=== PATIENT | female | born 1970 | race African-American/Black ===

== ENCOUNTER 2017-11-10 17:35 | Emergency (ER) | payer MEDICARE, MEDICAID, SELFPAY ==
[2017-11-10 17:39] VITALS: BP 97/34; PULSE 99; RESP 16; TEMP 36.9; O2SAT 100; BMI 33.2
--- NOTE | 2017-11-10 18:21 | ED.VISSUMM ---
- ER Visit Summary Date of Service: 11/10/17 Chief Complaint: Dental pain History of Present Illness: The patient is a 47 F arrives by EMS with 1 week of left lower dental pain, left ear pain, and headache. Patient has appointment November 20 with a dentist. She notes some mild jaw swelling. She is on Xarelto for chronic atrial fibrillation Physical Examination: Afebrile vital signs are stable Gen: Well-nourished well-developed Head: Normocephalic atraumatic Eyes: Perrl EOMI ENT: TMs clear no rhinorrhea moist mucous membranes focal gum swelling around the first molar on the left lower side. There is no trismus. Floor the mouth is soft. There is mild swelling on the mandible. Neck: Supple no lymphadenopathy no JVD nontender CVS: Irregularly irregular rhythm rate rhythm no murmurs normal S1-S2 Respiratory: No distress clear to auscultation bilaterally chest nontender Abdomen: Soft nontender nondistended normal bowel sounds no masses Back: Nontender Extremity: Nontender no edema Skin: Normal color no rash Neuro: alert orientated ?3 CN II-XII intact normal strength sensation reflexes gait cerebellar Psych: Normal affect normal mood Emergency Department Course and Treatment: Will be treated with penicillin and [place]. Follow-up with dentistry as scheduled return if worsening Impression: 1. Dental caries 2. Odontalgia This note was generated with [employer] dictation software. It may contain incorrect words, spelling, and punctuation that were not noted in review of the chart prior to signing ED Disposition - Plan for ED Patient: Disposition: Home or Assisted Living Chief Complaint: Dental Instructions: ED Cavity Dental Prescriptions: Hydrocodone Bitart/Apap 5-325 [[place] 5/325] 1 tab PO Q6H PRN PRN 3 Days #12 tab PRN Reason: Pain Penicillin V Potassium 500 mg PO 4X/DAY #40 tab Referrals: Care Physician,No Primary [Primary Care Provider] - Additional Instructions: Follow-up with your dentist as scheduled on November 20 Return if worsening or concerns
--- NOTE | 2017-11-10 18:24 | ED.DCSUM_ITS ---
- ER Visit Summary Date of Service: 11/10/17 Chief Complaint: Dental pain History of Present Illness: The patient is a 47 F arrives by EMS with 1 week of left lower dental pain, left ear pain, and headache. Patient has appointment November 20 with a dentist. She notes some mild jaw swelling. She is on Xarelto for chronic atrial fibrillation Physical Examination: Afebrile vital signs are stable Gen: Well-nourished well-developed Head: Normocephalic atraumatic Eyes: Perrl EOMI ENT: TMs clear no rhinorrhea moist mucous membranes focal gum swelling around the first molar on the left lower side. There is no trismus. Floor the mouth is soft. There is mild swelling on the mandible. Neck: Supple no lymphadenopathy no JVD nontender CVS: Irregularly irregular rhythm rate rhythm no murmurs normal S1-S2 Respiratory: No distress clear to auscultation bilaterally chest nontender Abdomen: Soft nontender nondistended normal bowel sounds no masses Back: Nontender Extremity: Nontender no edema Skin: Normal color no rash Neuro: alert orientated ?3 CN II-XII intact normal strength sensation reflexes gait cerebellar Psych: Normal affect normal mood Emergency Department Course and Treatment: Will be treated with penicillin and [place]. Follow-up with dentistry as scheduled return if worsening Impression: 1. Dental caries 2. Odontalgia This note was generated with [employer] dictation software. It may contain incorrect words, spelling, and punctuation that were not noted in review of the chart prior to signing ED Disposition - Plan for ED Patient: Disposition: Home or Assisted Living Chief Complaint: Dental Instructions: ED Cavity Dental Prescriptions: Hydrocodone Bitart/Apap 5-325 [[place] 5/325] 1 tab PO Q6H PRN PRN 3 Days #12 tab PRN Reason: Pain Penicillin V Potassium 500 mg PO 4X/DAY #40 tab Referrals: Care Physician,No Primary [Primary Care Provider] - Additional Instructions: Follow-up with your dentist as scheduled on November 20 Return if worsening or concerns
[2017-11-10 18:38] VITALS: PULSE 97; RESP 14; O2SAT 99
== END 2017-11-10 18:40 | disposition home or self-care (01) ==
PROVIDERS: Emergency Provider Emergency Medicine; Family Provider Family Medicine; PCP Family Medicine
DX: K02.9 Dental caries, unspecified (principal); K08.89 Other specified disorders of teeth and supporting structures; H92.02 Otalgia, left ear; R51 Headache; Z86.73 Personal history of transient ischemic attack (TIA), and cerebral infarction without residual deficits; I10 Essential (primary) hypertension; E78.00 Pure hypercholesterolemia, unspecified; I48.2 Chronic atrial fibrillation; E05.00 Thyrotoxicosis with diffuse goiter without thyrotoxic crisis or storm; Z87.891 Personal history of nicotine dependence; Z79.01 Long term (current) use of anticoagulants; Z79.82 Long term (current) use of aspirin; Z79.899 Other long term (current) drug therapy
CPT/HCPCS: 99284

== ENCOUNTER 2018-09-22 19:07 | Emergency (ER) | payer MEDICARE, MEDICAID, SELFPAY ==
[2018-09-22 19:08] VITALS: BP 144/100; PULSE 62; RESP 14; TEMP 37; O2SAT 100; BMI 36.6
[2018-09-22 19:15] VITALS: PULSE 85; RESP 20; O2SAT 100
--- NOTE | 2018-09-22 19:21 | EKG12_ITS ---
Test Reason : CP Blood Pressure : / mmHG Vent. Rate : 071 BPM Atrial Rate : 267 BPM P-R Int : 000 ms QRS Dur : 086 ms QT Int : 378 ms P-R-T Axes : 000 065 074 degrees QTc Int : 410 ms Atrial fibrillation Low voltage QRS Nonspecific T wave abnormality Abnormal ECG Confirmed by ALEXUS VICTOR, KYLIE ([id number]), marketing editor STAS HANKINS ([id number]) on 09/27/2018 10:12:08 AM Referred By: HEDY/JAI Confirmed By:KYLIE VAUGHAN MD
[2018-09-22] MEDS: Acetaminophen 500 MG Tablet 1000 MG PO (19:37)
[2018-09-22 19:45] LABS: Absolute Lymphocyte Count 1.93 X10^3/ul (0.83-4.51); Absolute Neutrophil Count 5.4 X10^3/uL (2.0-7.7); Basophil# 0.02 X10^3/uL; Basophil% 0.3 % (0-1); Eosinophil# 0.09 X10^3/uL; Eosinophils% 1.1 % (0-5); Hematocrit 40.1 % (37-47); Hemoglobin 12.6 g/dl (12.0-15.0); Lymphocyte # 1.93 X10^3/ul (4.0); Lymphocyte % 24.2 % (19-41); Mean Corp Hgb Conc 31.4 g/gl (32-36); Mean Corpuscular Hgb 26.5 pg (27.0-32.0); Mean Corpuscular Volume 84.4 fL (81-99); Mean Platelet Vol. 10.7 fl (6.2-12.0); Monocyte# 0.53 X10^3/uL; Monocyte% 6.6 % (0-10); Neutrophil % 67.7 % (47-70); Platelet Count 254 K/mm3 (150-450); RBC Distribution Width CV 14.2 % (11.6-14.6); RBC Distribution Width SD 44.2 fl (35.1-43.9); Red Blood Count 4.75 M/mm3 (4.2-5.4)
--- NOTE | 2018-09-22 19:45 | RAD_ITS ---
STUDY: X-RAY CHEST REASON FOR EXAM: Female, 48 years old. Chest pain. TECHNIQUE: PA and lateral views of the chest. COMPARISON: February 06, 2017. FINDINGS: Telemetry wires overlie the chest. The lungs are clear and expanded. There is no demonstrated pleural abnormality. There is borderline cardiomegaly. Normal mediastinum and pamella. Normal visualized pulmonary arteries. Normal visualized aortic arch and descending thoracic aorta. Normal visualized thoracic spine. Normal visualized ribs, clavicles, and shoulders. There is no demonstrated abnormality of the visualized soft tissue structures of the upper abdomen. RAD/Chest PA and Lateral IMPRESSION: Cardiomegaly without acute pulmonary disease. Electronically Signed: Bob Nunez DO at 20:04 EST Tel [phone], Service support ,
[2018-09-22 19:50] LABS: POSITIVE COUNT NO; POSITIVE DIFFERENTIAL NO; POSITIVE MORPHOLOGY NO
[2018-09-22 19:56] LABS: Anion Gap 6 (5-15); BUN 13 mg/dL (7-18); BUN/Creat Ratio 16.8 RATIO (10-20); Calcium,Total 8.7 mg/dL (8.5-10.1); Chloride 108 mmol/L (98-107); Creatinine, Serum 0.78 mg/dL (0.55-1.02); EST Glomerular Filtration Rate 85 mL/min (>60); Est Glom Filt Rate - Afr Amer 102 mL/min (>60); Estimated Creatinine Clearance 83.47 ml/min; Glucose 136 mg/dL (74-106); Potassium 3.4 mmol/L (3.5-5.1); Sodium Level 141 mmol/L (136-145)
--- NOTE | 2018-09-22 20:23 | ED.VISSUMM ---
- ER Visit Summary Date of Service: 09/22/18 Chief Complaint: Chest pain History of Present Illness: The patient is a [address] Colbert and Dr. Vallejo. She reports that 1 hour ago she was coughing and had the abrupt onset of a sharp pain in right upper chest. She reports the pain Zeta 10 hours and 7-10 currently. Is worsened by coughing and movement. Is relieved by nothing. Patient reports that she had a cough for the past week is productive yellow sputum without blood. She denies any fever or chills. No shortness of breath. Physical Examination: Vitals: Stable. Afebrile. General: Well-nourished and well-developed. Head: Normocephalic atraumatic. Neck: Supple, no lymphadenopathy. No JVD. Nontender. Cardiovascular: Regular rate and rhythm. No murmurs. Respiratory: No respiratory distress. Clear to auscultation bilaterally. Mild tenderness palpation to the upper chest on the right that does reproduce her pain. Abdominal: Soft, nontender, nondistended, normal bowel sounds. No guarding, rebound, or peritoneal signs. Back: Nontender. Extremities: Nontender, no edema. Skin: Normal color, no rash. Neurologic: Alert and oriented ?3. Cranial nerves II through XII are intact. Normal strength and sensation. Psych: Normal affect. Test Results: EKG is atrial fibrillation 71 with no ischemic changes. She does have low voltage. However, this is unchanged from September 08, 2016. CBC is normal. Chem-7 is marked for potassium 3.4, chloride 108, glucose 136. Chest x-ray shows cardiomegaly that is not not significantly changed since February 06, 2017. Emergency Department Course and Treatment: Patient was treated with Tylenol. She is resting comfortably Treatment Plan: Patient will be discharged symptomatic care for her cough. Use Tylenol for pain. Follow-up her primary care physician 1 week if not improving. Return to the emergency department for any worsening symptoms. Disposition: To home in improved and stable condition. Impression: 1. Musculoskeletal chest pain. 2. Coagulopathy on Xarelto. 3. URI. This note was generated with [employer] software. It may contain incorrect words, spelling, and punctuation that were not noted in review of the chart prior to signing ED Disposition - Plan for ED Patient: Disposition: Home or Assisted Living Instructions: ED Strain Chest Wall Referrals: Cheko Colbert MD [Primary Care Provider] - 1 Week if not improving
[2018-09-22 20:35] VITALS: BP 147/74; PULSE 63; RESP 16; O2SAT 99
--- NOTE | 2018-09-22 20:36 | ED.RN ---
PT discharged to lobby with a steady and independent gait. All questions answered no further concerns. pt used personal cell phone to call for a ride.
== END 2018-09-22 20:41 | disposition home or self-care (01) ==
LOC: ED 19:29
PROVIDERS: Emergency Provider Emergency Medicine; Family Provider Family Medicine; PCP Family Medicine
DX: R07.89 Other chest pain (principal); D68.9 Coagulation defect, unspecified; Z79.01 Long term (current) use of anticoagulants; J06.9 Acute upper respiratory infection, unspecified; I48.91 Unspecified atrial fibrillation; I11.9 Hypertensive heart disease without heart failure; E78.00 Pure hypercholesterolemia, unspecified; E05.00 Thyrotoxicosis with diffuse goiter without thyrotoxic crisis or storm; D64.9 Anemia, unspecified; Z86.73 Personal history of transient ischemic attack (TIA), and cerebral infarction without residual deficits; Z79.82 Long term (current) use of aspirin; Z79.899 Other long term (current) drug therapy
CPT/HCPCS: 71046; 80048; 85025; 93005; 96360; 99285; J7040; A4216

== ENCOUNTER 2019-04-16 10:58 | Emergency (ER) | payer MEDICARE, MEDICAID, SELFPAY ==
[2019-04-16 10:59] VITALS: BP 140/108; PULSE 73; RESP 16; TEMP 36.9; O2SAT 99; BMI 33.9
--- NOTE | 2019-04-16 11:26 | ED.DCSUM_ITS ---
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 It is aching. It is constant. She states that it is only worse when she moves and walks around. She has not had any nausea or vomiting or diarrhea. She has not had any urinary symptoms. She denies falls or trauma. The pain does radiate into her right leg. She is not having back pain. She is not having any lower extremity numbness tingling or weakness worse than her baseline. She has not had any difficulty urinating constipation or loss of bowel or bladder function. She denies constitutional symptoms. Prior similar symptoms: No Recent Illness/Hospitalization: No <Reno Camilo - Last Filed: 04/16/19 12:48> <Red Lindquist - Last Filed: 04/16/19 17:18> Chief Complaint: Abd Pain Past Medical History Prior records reviewed: Yes Past Medical History: - - A. fib currently anticoagulated, coronary artery disease, CVA Surgical History: - - denies surgery Smoking Status: Former smoker - Family History Maternal Family History: Reports: No pertinent history - in 40's unknown reason Paternal Family History: Reports: No pertinent history Sibling Family History: Reports: - - sister with diabetes <Reno Camilo - Last Filed: 04/16/19 12:48> <Red Lindquist - Last Filed: 04/16/19 17:18> - Allergies and Home Meds Allergies/Adverse Reactions: Allergies No Known Allergies Allergy (Verified 04/16/19 10:59) Primary Care Physician: Cheko Colbert MD [Primary Care Provider] - Review of Systems All systems negative except as indicated General: Denies: Chills, Fever Cardiovascular: Denies: Chest pain Respiratory: Denies: Dyspnea Gastrointestinal: Reports: - - right flank/side paini. Denies: Nausea, Vomiting, Diarrhea, Constipation Genitourinary: Denies: Dysuria, Hematuria, Frequency Musculoskeletal: Denies: Neck pain, Back pain <Reno Camilo - Last Filed: 04/16/19 12:48> Physical Exam Vital Signs/Narrative: Vital Signs Temp Pulse Resp BP Pulse Ox 04/16/19 10:59 98.5 F 73 16 140/108 H 99 Inital Vital Signs reviewed: Yes General: Well nourished, Well developed, No Acute Distress Head: Normocephalic, Atraumatic Eyes: Perrl, EOMI ENT: Moist mucous membranes Neck: Supple, Nontender Cardiovascular: Regular rate, Regular rhythm Respiratory: No distress, CTA bilaterally, Chest nontender Abdomen: Soft, Nontender, Nondistended, Normal bowel sounds, No masses Back: Nontender, Normal Inspection Extremities: Nontender, No edema Skin: Normal color, No rash Neurological: Alert, Oriented x3 <Reno Camilo - Last Filed: 04/16/19 12:48> Diagnostic/Tx/Re-eval - Medical Decision Making Patient declined analgesia or antiemetics. Laboratory work-up was pursued. CBC, CMP unremarkable. Urinalysis negative. No evidence of acute elevation of liver enzymes or signs of UTI, pyelonephritis or hematuria that would be significant for a kidney stone. Her abdomen is soft and nontender. She is able to tolerate by mouth. Discussed with her at this time do not feel abdominal imaging is indicated and she is agreeable. Again she is not having any significant pain. Will discharge home and she will continue her Tylenol. <Reno Camilo - Last Filed: 04/16/19 12:48> - Medical Decision Making I supervised the PA and have performed my own pertinent history and physical. Results and treatment plan were discussed. HPI: Patient reports that she has right flank pain is been present for a week. She does report that she has been walking with her cane more. She states that this makes the pain worse. She denies any nausea or vomiting. PE: Back: Mild tenderness palpation to the right lumbar paraspinous musculature. No vertebral tenderness. No CVA tenderness. Negative straight leg raise bilaterally. Emergency Department course: Urinalysis was negative. Patient refused pain or nausea medications. She is resting comfortably. Treatment Plan: Patient will be discharged with Tylenol. Instructed to follow- up with her primary care physician in 3 to 5 days if not improving. Return to the emergency department for any worsening symptoms. This note was generated with [employer] dictation software. It may contain incorrect words, spelling, and punctuation that were not noted in review of the chart prior to signing. <Red Lindquist - Last Filed: 04/16/19 17:18> ED Disposition <Reno Camilo - Last Filed: 04/16/19 12:48> <Red Lindquist - Last Filed: 04/16/19 17:18> - Plan for ED Patient: Disposition: Home or Assisted Living Diagnosis: Right flank pain Instructions: FLANK PAIN, Uncertain Cause Referrals: Cheko Colbert MD [Primary Care Provider] -
[2019-04-16 11:40] LABS: Bacteria 0 SEEN /hpf (None Seen); Mucous, Urine 0 SEEN /hpf (<or=2+); White Blood Cells 0 SEEN /hpf (0-5)
[2019-04-16 11:40] LABS: Absolute Neutrophil Count 2.6 X10^3/uL (2.0-7.7); Basophil# 0.04 X10^3/uL; Basophil% 0.7 % (0-1); Eosinophil# 0.09 X10^3/uL; Eosinophils% 1.5 % (0-5); Hematocrit 41.9 % (37-47); Hemoglobin 13.2 g/dL (12.0-15.0); Lymphocyte % 40.7 % (19-41); Mean Corp Hgb Conc 31.5 g/dL (32-36); Mean Corpuscular Hgb 27.3 pg (27.0-32.0); Mean Corpuscular Volume 86.6 fL (81-99); Mean Platelet Vol. 11.4 fl (6.2-12.0); Monocyte# 0.78 X10^3/uL; Monocyte% 13.2 % (0-10); NRBC Flagged by Analyzer 0 % (0-5); Neutrophil # 2.58 X10^3/uL (2.7-7.7); Neutrophil % 43.9 % (47-70); Platelet Count 254 K/mm3 (150-450); RBC Distribution Width CV 14.2 % (11.6-14.6); RBC Distribution Width SD 45.1 fl (35.1-43.9); Red Blood Count 4.84 M/mm3 (4.2-5.4); White Blood Count 5.9 K/mm3 (4.4-11.0)
[2019-04-16 11:41] LABS: Color, Urine Yellow (Yellow); Glucose, Dipstick Normal (Normal); Ketone-Dipstick Negative (Negative); Leukocyte Esterase-Dipstick Negative /ul (Negative); Nitrite-Dipstick Negative (Negative); Occult Blood-Urine 50 /ul (Negative); Protein-Dipstick 30 mg/dl (Negative); Specific Gravity, Urine 1.025 (1.002-1.030); Urine Bilirubin Dipstick Negative (Negative); Urine Clarity Cloudy (Clear); Urine Urobilinogen Normal (Normal)
[2019-04-16 11:49] LABS: Red Blood Cells-Urine 0-5 SEEN /hpf (0-5); Squamous Epithelial Cells - UA 10-25 SEEN /hpf (5-10)
[2019-04-16 12:39] VITALS: BP 121/81; PULSE 63; RESP 16; O2SAT 100
== END 2019-04-16 12:45 | disposition home or self-care (01) ==
PROVIDERS: Emergency Provider Physician Assistant Medical; Family Provider Family Medicine; PCP Family Medicine
DX: R10.9 Unspecified abdominal pain (principal); I48.91 Unspecified atrial fibrillation; I25.10 Atherosclerotic heart disease of native coronary artery without angina pectoris; I25.2 Old myocardial infarction; Z86.73 Personal history of transient ischemic attack (TIA), and cerebral infarction without residual deficits; Z79.01 Long term (current) use of anticoagulants; Z79.82 Long term (current) use of aspirin; Z79.899 Other long term (current) drug therapy; Z87.891 Personal history of nicotine dependence
CPT/HCPCS: 81001; 85025; 99285; A4216

== ENCOUNTER 2019-05-23 20:05 | Inpatient (IN) | payer MEDICARE, MEDICAID, SELFPAY ==
[2019-05-23 20:05] VITALS: BP 143/75; PULSE 81; RESP 18; TEMP 36.4; O2SAT 98
[2019-05-23 20:06] VITALS: BP 143/75; PULSE 95; RESP 18; TEMP 36.4; O2SAT 97; BMI 35.4
--- NOTE | 2019-05-23 20:25 | CT_ITS ---
HISTORY: SEIZURE, PREVIOUS STROKE, HISTORY OF SEIZURE 2 YEARS AGO. TECHNIQUE: Multiple axial images were obtained of the brain without intravenous contrast. A radiation dose optimization technique was used for this scan. COMPARISON: Previous CT scans of the brain from February 09, February 06, and January 06, 2017. FINDINGS: # of images incl. paperwork: 223 Focal area of encephalomalacia within the right temporal frontal region is the same as the most recent study. Additional area of old ischemia within the right parietal occipital region was more acute on the January 2017 study, and now demonstrates encephalomalacia Visualized portions of the paranasal sinuses and mastoid air cells are free of disease. Brain volume is atrophic. Marie-white differentiation otherwise is preserved. No hydrocephalus. No acute ischemia. No acute intracranial hemorrhage. CT/Brain/Head without Contrast IMPRESSION: Within the right cerebral hemisphere with encephalomalacia within the is involved regions. No acute ischemia perceived ASPECT 10. Individualized dose optimization techniques were used for this CT. at 2151 Reported and signed by: Serge Richard MD Electronically Signed: Serge Richard MD at 21:49 EDT Tel , Service support ,
--- NOTE | 2019-05-23 20:30 | RAD_ITS ---
HISTORY: cough, seizure EXAM: XR Chest 1 View: COMPARISON: September 22, 2018 FINDINGS: # of images incl. paperwork: 1 Lungs are clear. Heart is enlarged. Bones are normal. Pulmonary vascularity is distinct. No effusions. RAD/Chest 1 View (Portable) IMPRESSION: Stable cardiomegaly. at 2048 Reported and signed by: Serge Richard MD Electronically Signed: Serge Richard MD at 20:46 EDT Tel , Service support ,
[2019-05-23 20:51] LABS: Bacteria 0 SEEN /hpf (None Seen); Red Blood Cells-Urine 0 SEEN /hpf (0-5)
[2019-05-23 21:02] LABS: Color, Urine Yellow (Yellow); Glucose, Dipstick Normal (Normal); Ketone-Dipstick Negative (Negative); Leukocyte Esterase-Dipstick Negative /ul (Negative); Nitrite-Dipstick Negative (Negative); Occult Blood-Urine 250 /ul (Negative); Protein-Dipstick 30 mg/dl (Negative); Specific Gravity, Urine 1.015 (1.002-1.030); Urine Bilirubin Dipstick Negative (Negative); Urine Clarity Sl. Cloudy (Clear); Urine Urobilinogen Normal (Normal)
[2019-05-23 21:10] LABS: Hyaline Cast 0-5 SEEN /lpf (0-5); Mucous, Urine 1+ /hpf (<or=2+); Squamous Epithelial Cells - UA 0-5 SEEN /hpf (5-10); White Blood Cells 0-5 SEEN /hpf (0-5)
[2019-05-23] MEDS: 0.9% Normal Saline 1,000 ML 150 ML IV (21:30)
[2019-05-23 21:54] LABS: Absolute Lymphocyte Count 1.41 X10^3/uL (0.83-4.51); Absolute Neutrophil Count 2.2 X10^3/uL (2.0-7.7); Basophil# 0.04 X10^3/uL; Basophil% 0.9 % (0-1); Eosinophil# 0.11 X10^3/uL; Eosinophils% 2.6 % (0-5); Lymphocyte # 1.41 X10^3/ul (4.0); Lymphocyte % 33.4 % (19-41); Mean Corp Hgb Conc 30.2 g/dL (32-36); Mean Corpuscular Hgb 26.6 pg (27.0-32.0); Mean Corpuscular Volume 87.9 fL (81-99); Mean Platelet Vol. 12.3 fl (6.2-12.0); Monocyte# 0.41 X10^3/uL; Monocyte% 9.7 % (0-10); NRBC Flagged by Analyzer 0 % (0-5); Neutrophil # 2.24 X10^3/uL (2.7-7.7); Neutrophil % 53.2 % (47-70); Platelet Count 167 K/mm3 (150-450); RBC Distribution Width CV 14.5 % (11.6-14.6); RBC Distribution Width SD 46.5 fl (35.1-43.9); Red Blood Count 4.89 M/mm3 (4.2-5.4); White Blood Count 4.2 K/mm3 (4.4-11.0)
--- NOTE | 2019-05-23 21:55 | ED.RN ---
NEUROLOGY PAGED FOR DR PEÑA
[2019-05-23 22:15] LABS: Amphetamine Urine VISTA NEGATIVE (<1000 ng/mL); Barbiturate Urine VISTA NEGATIVE (< 200 ng/mL); Benzodiazepine Urine VISTA NEGATIVE (< 200 ng/mL); Cocaine Urine VISTA NEGATIVE (< 300 ng/mL); Ecstacy Urine VISTA NEGATIVE (< 500 ng/mL); Methadone Urine VISTA NEGATIVE (< 300 ng/mL); PCP Urine VISTA NEGATIVE (< 25 ng/mL); THC Urine VISTA POSITIVE (< 50 ng/mL); Vista UDS pH Range 6
--- NOTE | 2019-05-23 22:20 | ED.VISSUMM ---
- ER Visit Summary Date of Service: 05/23/19 Chief Complaint: [Seizure] History of Present Illness: The patient is a 49 F [presents to the emergency department complaint of a seizure that occurred prior to arrival in the emergency department. Patient was at home with her daughter. Patient tells me that she has been smoking marijuana and then ate a cookie in her mouth got real dry and she states that she fell out. The daughter states that she noticed the patient started to twitch and rule at the mouth so she laid her down on the ground and she continued to have seizure-like activity for about 10 minutes. Patient's daughter called EMS. Patient's daughter believes the patient may have had a seizure 2 years ago but she is not on any seizure medications. Patient has had histories of strokes as well as history of A. fib and is on Eliquis currently. Patient with history of hypertension and high cholesterol as well. Patient has had some cold symptoms recently. She is had a few episodes of watery stool. Patient has been sleeping well at night.] Physical Examination: [HEENT-PERRLA, EOMI. Cranial nerves II through XII grossly intact. TMs clear. Mucous membranes moist. No adenopathy. Patient has a bite wound to the central distal third of the tongue. Cardiovascular-regular rate and rhythm without murmur or ectopy Lungs-clear to auscultation, chest wall stable without crepitus or subcu emphysema Abdomen-normoactive bowel sounds, soft, nontender, no rebound or rigidity, no peritoneal signs. Neuro qelk-qhlvmu-pfav and heel ponce testing within normal limits, negative Romberg, negative pronator drift, fundi benign Extremities-intact ?4, normal range of motion, normal pulses, atraumatic] Test Results: [CBC with differential lichen of 4.2, hemoglobin 13, hematocrit 43, platelets of 70. Urinalysis was normal. Toxicology screen positive for marijuana. CT brain showed some encephalomalacia from prior strokes but no acute hemorrhage or any other acute disease process. BMP was unremarkable. CTA of the head and neck ordered at the request of neurology is pending.] Emergency Department Course and Treatment: Patient was started on Keppra at request of neurology 750 mg twice daily. [] Treatment Plan: [Admit] Disposition: [Admit] Impression: [Seizure-new onset] This note was generated with [id number] software. It may contain incorrect words, spelling, and punctuation that were not noted in review of the chart prior to signing ED Disposition - Plan for ED Patient: Referrals: Cheko Colbert MD [Primary Care Provider] -
[2019-05-23 22:21] VITALS: BP 138/97; PULSE 95; RESP 16; O2SAT 100
--- NOTE | 2019-05-23 23:16 | CT_ITS ---
HISTORY: HX STROKE IN PAST, SEIZURE TODAY, A-FIB, GA TECHNIQUE: Routine carotid CT angiogram protocol was performed without and with IV contrast. In addition, images were obtained of the [place] [facility] [place]. Nascet criteria using the distal ICAs for comparison were used for evaluation of stenoses. 3D reconstructions were reviewed. A radiation dose optimization technique was used for this scan. IV Contrast dosage and agent: 100ML 100mL Isovue-370 IV 100mL Isovue-370 100ML COMPARISON: Head CT from 2-1/2 hours earlier. CTA of the neck and brain have also been performed on February 06, 2017, and are currently available FINDINGS: --NECK: AORTIC ARCH AND BRANCHES: Normal anatomy, patent. RIGHT CCA: No occlusion, significant stenosis or dissection. RIGHT ICA: No occlusion, significant stenosis or dissection. LEFT CCA: No occlusion, significant stenosis or dissection. LEFT ICA: No occlusion, significant stenosis or dissection. RIGHT VERTEBRAL ARTERY: No occlusion, significant stenosis or dissection. LEFT VERTEBRAL ARTERY: No occlusion, significant stenosis or dissection. NECK SOFT TISSUES: Unremarkable. LUNG APICES: Right pleural effusion with minimal pulmonary edema BONES: Unremarkable. --HEAD: --Anterior circulation: ICAs: Both cavernous ICAs are patent. There is a focal area of plaque within the left ICA just above the foramen Prema on the does contribute to perhaps a 30% stenosis. The right is widely patent ACAs: No significant stenosis at the visualized segments. ACOM: Present. MCAs: Flow to the right MCA is attenuated and diminished compared to that of the left. The patient does have a previous right MCA infarct, and the appearance of the right MCA on today's study demonstrates improved flow compared to the previous study. No abrupt occlusion occlusion to the right MCA or its branches is perceived --Posterior circulation: PCOMs: Bilateral posterior communicating arteries are patent. On the right posterior communicating artery provides the preponderance of flow to the TELEGRAPH MESSENGER. carpenter's helper: No significant stenosis at the visualized segments. BASILAR ARTERY: No significant stenosis. VERTEBRAL ARTERIES: No significant stenosis at the intradural/visualized segments. No evidence of intracranial aneurysm or vascular malformation. CT/CTA Head AND Neck W/ Contrast IMPRESSION: Diminished flow to the right MCA compared to the left MCA but with peripheral flow. The amount of flow to the right MCA appears to be greater on the current study then on the previous study. Previously there was asymmetric flow to the MCAs as well. I do not appreciate an acute occlusion to the right MCA or any of its branches.. Normal CTA neck other than tortuous vessels Individualized dose optimization techniques were used for this CT. at 0035 Reported and signed by: Serge Richard MD Electronically Signed: Serge Richard MD at 0:34 EDT Tel , Service support ,
[2019-05-23 23:18] LABS: ALB/GLOB Ratio 1.2 RATIO (0.9-2.4); AST(SGOT) 23 U/L (15-37); Alanine Aminotransfer ALT/SGPT 24 U/L (13-56); Albumin, Serum 3.8 g/dL (3.2-5.0); Alkaline Phosphatase 91 U/L (45-117); Anion Gap 8 (5-15); BUN 11 mg/dL (7-18); BUN/Creat Ratio 16.2 RATIO (10-20); Calcium,Total 8.8 mg/dL (8.5-10.1); Chloride 108 mmol/L (98-107); Creatinine, Serum 0.68 mg/dL (0.55-1.02); EST Glomerular Filtration Rate 98 mL/min (>60); Est Glom Filt Rate - Afr Amer 119 mL/min (>60); Estimated Creatinine Clearance 94.72 ml/min; Globulin 3.3 g/dL (2.2-4.2); Glucose 87 mg/dL (74-106); Potassium 4.5 mmol/L (3.5-5.1); Prolactin 3.4 ng/mL; Protein, Total 7.1 g/dL (6.4-8.2); Sodium Level 143 mmol/L (136-145)
--- NOTE | 2019-05-23 23:21 | HP.PCM_ITS ---
History of Present Illness Date of Admission: 05/23/19 Chief Complaint: seizure/seizure like episode The patient is a 49 year old F with multiple comorbidities as listed above including A. fib on Eliquis, history of a stroke and marijuana use was brought into ER by EMS for episode of seizure-like episode and postictal episode. When I saw the patient, patient still lethargic and slow but awake and takes longer time to respond. She uses marijuana daily. About evening time, she had seizure-like episode with out any prodromal symptoms. As per ER physician, her daughter was with her at the time of seizure event. She she had twitching-like movements and then she fell on side on the bed and involuntary movement for about 10 minutes. Her daughter was not at the bedside when I saw the patient. She denies leaking of urine or fecal or urine incontinence. She bit her tongue. She had dry heaving but no real vomiting. She had only one episode of seizure this time. 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 fib with RVR, chronic systolic heart failure with EF 40% during previous admission in January 2017. She had EEG done at that time and was read normal awake EEG. There is no antiepileptic medication on her home medication. It seems she had seizure-like episode about 2 to 3 years ago. This time, patient was started on IV fluid and started on Keppra 750 mg IV every 12 hourly. ER physician consulted neurologist and advised CTA head and neck and MRI of brain. Past Medical History Past Medical History (Chronic Problems): Chronic Problems Hyperlipidemia (Chronic) Iron deficiency anemia (Chronic) Graves disease (Chronic) Atrial fibrillation with RVR (Chronic) Cardiomyopathy (Chronic) HTN (hypertension) (Chronic) Multinodular goiter (nontoxic) (Chronic) Non-ST elevation IA (NSTEMI) (Chronic) Allergies No Known Allergies Allergy (Verified 04/16/19 10:59) Home Medications: Ambulatory Orders Medication Instructions Recorded Aspirin [Aspirin, Baby] 81 mg PO DAILY@0800 tab.chew 09/12/16 Carvedilol [Coreg (Beta Rodolfo)] 12.5 mg PO BID #60 tablet 02/11/17 Ferrous Sulfate 325 mg PO DAILY@0800 #30 tablet 02/11/17 Propylthiouracil 100 mg PO TID #90 tablet 02/11/17 atorvastatin 80 mg tablet 80 mg PO QHS #30 tab 11/11/17 Apixaban [Eliquis] 5 mg PO DAILY 04/16/19 Surgical History: - - denies surgery Psychiatric History: No pertinent psych hx 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 Denies: Abdominal Pain Genitourinary: Denies: Dysuria, Frequency, Incontinence, Urgency Musculoskeletal: Reports: - - Chronic left-sided weakness from previous stroke Unable to obtain accurate/complete ROS d/t: Lethargic, postictal state after seizure VTE Information - Inpt Only VTE Present on Admission: No VTE Mechan Device Prophylaxis: None VTE Pharm Prophylaxis ordered?: No Reason prophylaxis not ordered:: Procedure Not Indicated - Already on Eliquis - Physical Exam General: Oriented x3, Lethargic, - - Patient is awake HEENT: Atraumatic, PERRLA, EOMI, Normocephalic, - - No major scalp edema or laceration noticed. Oral: Dry Mucosa, - - Tongue bite on the dorsal anterior two third and also on the left lateral edge. Neck: Supple, No JVD, Negative Carotid Bruits, No Nuchal Rigidity Lungs: Clear to auscultation, No rhonchi, No wheeze, No rales, Diminished - Air entry is diminished in bilateral lung bases. Cardiovascular: Regular rate, Regular Rhythm, Normal S1, Normal S2, No murmurs Abdomen: Bowel Sounds Present, Soft, Non Tender, Non-Distended Extremities: Edema Skin: No rashes, No breakdown Musculoskeletal: No Tenderness to Palpation of Joints or Extremities, Arthritic Changes Lymphatic: No Cervical, Supraclavicular, or Inguinal Adenopathy Neurological: Deep Tendon Reflexes 2+/4 and Symmetrical, Facial Droop, - - Mild left-sided facial droop. Weakness on the left lower extremity probably residual from previous stroke about 2 years ago Psych/Mental Status: Flat Affect Vital Signs Temp Pulse Resp BP Pulse Ox 97.6 F L 95 16 138/97 H 100 05/23/19 20:06 05/23/19 22:21 05/23/19 22:21 05/23/19 22:21 05/23/19 22:21 Oxygen Delivery Method Room Air Weight: 219 lb 9.286 oz Body Mass Index (BMI) 35.4 Finger Stick Blood Glucose 72 Intake and Output for Last 24 Hours 05/21/19 05/22/19 05/23/19 23:59 23:59 23:59 Intake Total 250.0 / 250.0 Balance 250.0 / 250.0 Laboratory Tests Past 24 Hrs 05/23/19 05/23/19 05/23/19 20:45 20:45 21:42 WBC 4.2 L RBC 4.89 Hgb 13.0 Hct 43.0 MCV 87.9 MCH 26.6 L MCHC 30.2 L RDW Std Deviation 46.5 H RDW Coeff of Suzette 14.5 Plt Count 167 MPV 12.3 H Immature Gran % (Auto) 0.200 Neut % (Auto) 53.2 Lymph % (Auto) 33.4 Mclean % (Auto) 9.7 Eos % (Auto) 2.6 Baso % (Auto) 0.9 Absolute Neuts (auto) 2.2 Absolute Lymphs (auto) 1.41 Nucleated RBC % 0 Sodium Potassium Chloride Carbon Dioxide Anion Gap BUN Creatinine Estim Creat Clear Calc Est GFR (MDRD) Af Amer Est GFR (MDRD) Non-Af BUN/Creatinine Ratio Glucose Calcium Total Bilirubin AST ALT Alkaline Phosphatase Total Protein Albumin Globulin Albumin/Globulin Ratio Prolactin Urine Color Yellow Urine Clarity Sl. Cloudy Urine pH 6.0 Ur Specific [place] 1.015 Urine Protein 30 H Urine Glucose (UA) Normal Urine Ketones Negative Urine Occult Blood 250 H Urine Nitrite Negative Urine Bilirubin Negative Urine Urobilinogen Normal Ur Leukocyte Esterase Negative Urine RBC 0 SEEN Urine WBC 0-5 SEEN Ur Squamous Epith Cells 0-5 SEEN Urine Bacteria 0 SEEN Hyaline Casts 0-5 SEEN Urine Mucus 1+ Urine Opiates Screen NEGATIVE Urine Methadone Screen NEGATIVE Ur Barbiturates Screen NEGATIVE Ur Phencyclidine Scrn NEGATIVE Ur Amphetamines Screen NEGATIVE U Methamphetamin-MDMA NEGATIVE U Benzodiazepines Scrn NEGATIVE Urine Cocaine Screen NEGATIVE U Cannabinoids Screen POSITIVE H Ur Drug Screen Comment 05/23/19 05/23/19 21:42 22:32 WBC RBC Hgb Hct MCV MCH MCHC RDW Std Deviation RDW Coeff of Suzette Plt Count MPV Immature Gran % (Auto) Neut % (Auto) Lymph % (Auto) Mclean % (Auto) Eos % (Auto) Baso % (Auto) Absolute Neuts (auto) Absolute Lymphs (auto) Nucleated RBC % Sodium Cancelled 143 Potassium Cancelled 4.5 Chloride Cancelled 108 H Carbon Dioxide Cancelled 27.0 Anion Gap Cancelled 8 BUN Cancelled 11 Creatinine Cancelled 0.68 Estim Creat Clear Calc Cancelled 94.72 Est GFR (MDRD) Af Amer Cancelled 119 Est GFR (MDRD) Non-Af Cancelled 98 BUN/Creatinine Ratio Cancelled 16.2 Glucose Cancelled 87 Calcium Cancelled 8.8 Total Bilirubin Cancelled 0.70 AST Cancelled 23 ALT Cancelled 24 Alkaline Phosphatase Cancelled 91 Total Protein Cancelled 7.1 Albumin Cancelled 3.8 Globulin Cancelled 3.3 Albumin/Globulin Ratio Cancelled 1.2 Prolactin Cancelled 3.4 Urine Color Urine Clarity Urine pH Ur Specific [place] Urine Protein Urine Glucose (UA) Urine Ketones Urine Occult Blood Urine Nitrite Urine Bilirubin Urine Urobilinogen Ur Leukocyte Esterase Urine RBC Urine WBC Ur Squamous Epith Cells Urine Bacteria Hyaline Casts Urine Mucus Urine Opiates Screen Urine Methadone Screen Ur Barbiturates Screen Ur Phencyclidine Scrn Ur Amphetamines Screen U Methamphetamin-MDMA U Benzodiazepines Scrn Urine Cocaine Screen U Cannabinoids Screen Ur Drug Screen Comment Assessment/Plan All Active Problems Noncompliance with medication regimen (Acute) Cardioembolic stroke (Acute) Left arm weakness (Acute) The patient is a 49 year old F with multiple comorbidities as listed above including A. fib on Eliquis, history of a stroke and marijuana use was brought into ER by EMS for episode of seizure-like episode and postictal episode. When I saw the patient, patient still lethargic and slow but awake and takes longer time to respond. She uses marijuana daily. About evening time, she had seizure-like episode without any prodromal symptoms. As per ER physician, her daughter was with her at the time of seizure event. She she had twitching-like movements and then she fell on side on the bed and involuntary movement for about 10 minutes. Her daughter was not at the bedside when I saw the patient. She denies leaking of urine or fecal or urine incontinence. She bit her tongue. She had dry heaving but no real vomiting. She had only one episode of seizure this time. 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 fib with RVR, chronic systolic heart failure with EF 40% during previous admission in January 2017. She had EEG done at that time and was read normal awake EEG. There is no antiepileptic medication on her home medication. It seems she had seizure-like episode about 2 to 3 years ago. This time, patient was started on IV fluid and started on Keppra 750 mg IV every 12 hourly. ER physician consulted neurologist and advised CTA head and neck and MRI of brain. 1. Seizure episode, seems second seizure episode after 2-3 years: Patient is being admitted in PCU. On IV fluid normal saline. Started on Keppra 750 mg every 12 hourly. Neurologist has been consulted in the ER. CT head shows chronic changes of previous stroke including encephalomalacia.. No acute ischemia reported. EEG done in January 2017 reported normal. CTA head and neck ordered from ER physician. MRI brain and EEG ordered. NIHSS monitoring on telemetry until stroke was ruled out although it seems unlikely. PT OT and speech evaluation. Fasting lipid profile tomorrow a.m. 2. Chronic A. fib and cardiomyopathy seems most probably non-ischemic probably from hyperthyroidism/Graves' disease: Continue Eliquis and carvedilol 12.5 mg twice daily. Twelve-lead EKG ordered. EKG shows A. fib at 73 bpm, low voltage QRS with rightward axis. Heart rate is controlled. Echo in January 2017 shows normal LV size with EF 40% with mild segmental systolic dysfunction. Moderate to severe left atrial enlargement, mild to moderate right atrial enlargement. Normal tricuspid valve, mild TR. Was unable to estimate RVSP. Repeat echo tomorrow morning. 3. Chronic right posterior temporal and right occipital arteries cardioembolic ischemic stroke: Continue aspirin and Eliquis and atorvastatin. 4. Hyperthyroidism with multinodular goiter: On PTU 100 mg 3 times daily. TSH, free T4 tomorrow a.m. 5. Other comorbidities include hypertension, chronic iron deficiency anemia, dyslipidemia and noncompliance: Currently blood pressure is controlled 138/97. Continue ferrous sulfate. DVT prophylaxis: Patient is already on Eliquis 5 mg twice daily. Clinical Impression(s) from Imaging Studies Brain CT 05/23/19 20:25 IMPRESSION: Within the right cerebral hemisphere with encephalomalacia within the is involved regions. No acute ischemia perceived Chest X-Ray 05/23/19 20:30 IMPRESSION: Stable cardiomegaly. at 2048 Reported and signed by: Serge Richard MD Electronically Signed: Serge Richard MD at 20:46 EDT Tel , Service support , Laboratory Results 05/23/19 20:45: Urine Color Yellow, Urine Clarity Sl. Cloudy, Urine pH 6.0, Ur Specific [place] 1.015, Urine Protein 30 H, Urine Glucose (UA) Normal, Urine Ketones Negative, Urine Occult Blood 250 H, Urine Nitrite Negative, Urine Bilirubin Negative, Urine Urobilinogen Normal, Ur Leukocyte Esterase Negative, Urine RBC 0 SEEN, Urine WBC 0-5 SEEN, Ur Squamous Epith Cells 0-5 SEEN, Urine Bacteria 0 SEEN, Hyaline Casts 0-5 SEEN, Urine Mucus 1+ 05/23/19 20:45: Urine Opiates Screen NEGATIVE, Urine Methadone Screen NEGATIVE, Ur Barbiturates Screen NEGATIVE, Ur Phencyclidine Scrn NEGATIVE, Ur Amphetamines Screen NEGATIVE, U Methamphetamin-MDMA NEGATIVE, U Benzodiazepines Scrn NEGATIVE, Urine Cocaine Screen NEGATIVE, U Cannabinoids Screen POSITIVE H, Ur Drug Screen Comment 05/23/19 21:42: WBC 4.2 L, RBC 4.89, Hgb 13.0, Hct 43.0, MCV 87.9, MCH 26.6 L, MCHC 30.2 L, RDW Std Deviation 46.5 H, RDW Coeff of Suzette 14.5, Plt Count 167, MPV 12.3 H, Immature Gran % (Auto) 0.200, Neut % (Auto) 53.2, Lymph % (Auto) 33.4, Mclean % (Auto) 9.7, Eos % (Auto) 2.6, Baso % (Auto) 0.9, Absolute Neuts (auto) 2.2, Absolute Lymphs (auto) 1.41, Nucleated RBC % 0 05/23/19 22:32: Sodium 143, Potassium 4.5, Chloride 108 H, Carbon Dioxide 27.0, Anion Gap 8, BUN 11, Creatinine 0.68, Estim Creat Clear Calc 94.72, Est GFR (MDRD) Af Amer 119, Est GFR (MDRD) Non-Af 98, BUN/Creatinine Ratio 16.2, Glucose 87, Calcium 8.8, Total Bilirubin 0.70, AST 23, ALT 24, Alkaline Phosphatase 91, Total Protein 7.1, Albumin 3.8, Globulin 3.3, Albumin/Globulin Ratio 1.2, Prolactin 3.4 Code Visit Inpatient E&M: 27527 Init Hosp L3
[2019-05-23] MEDS: Benzonatate 100 MG Capsule 200 MG PO (23:23)
[2019-05-24] VITALS (13 sets, daily range): BP systolic 107–132; BP diastolic 59–95; PULSE 36–70; RESP 16–20; TEMP 36.6–37.1; O2SAT 93–100; BMI 34.1; BMI 34.2
[2019-05-24 00:48] LABS: GGTP 29 U/L (5-55)
[2019-05-24 00:49] LABS: Alcohol, Blood (Medical)-Serum < 3.0 mg/dL
[2019-05-24] MEDS: 0.9% Normal Saline 1,000 ML 75 ML IV (01:03)
[2019-05-24] MEDS: Atorvastatin Calcium 80 MG Tablet PO ×2 (01:05→22:27)
[2019-05-24] MEDS: Carvedilol 12.5 MG Tablet PO (01:05)
--- NOTE | 2019-05-24 05:55 | MRI_ITS ---
STUDY: MRI BRAIN WITHOUT CONTRAST REASON FOR EXAM: Female, 49 years old. Seizure TECHNIQUE: Standardized multiplanar fat and water weighted pulse sequences were obtained. COMPARISON: 02/07/2017 FINDINGS: There is mild cerebral atrophy with widening of the extra-axial spaces and ventricular dilatation. Normal white matter tracts of the supratentorial brain. There is no evidence for recent intracranial ischemia or other cause of cytotoxic edema on diffusion weighted imaging (DWI). Normal T2* images of the brain without demonstrated susceptibility artifact. There is no demonstrated hemosiderin stain. Encephalomalacia and gliosis within the right parietal lobe consistent with a chronic right middle cerebral artery infarct. Normal bilateral basal ganglia. Normal thalami. There is no extra-axial fluid accumulation. Normal flow voids within the major intracranial circulation suggesting patency by spin echo criteria. Normal sella turcica, pituitary gland, infundibular stalk, optic chiasm and hypothalamus. Normal tectal plate and pineal gland. Normal midbrain, carlito and medulla. Normal cerebellum. Normal basal cisterns. Normal bilateral temporal bones. Normal bilateral internal auditory canals. No demonstrated orbital abnormality, within the constraints of a routine brain study. Some mucosal thickening in the floor the right max 3 sinus consistent with chronic sinusitis. Normal calvarium and skull base. Normal visualized soft tissue structures. Normal visualized upper cervical spine. MRI/Brain without Contrast IMPRESSION: Chronic right middle cerebral artery infarct but no acute abnormality. Electronically Signed: Domenico Giles MD at 15:15 EDT Tel , Service support ,
--- NOTE | 2019-05-24 05:55 | ECHOCS_ITS ---
Reason For Study: CHF, AFIB. Procedure This was a 2D Doppler, Color Flow transthoracic echocardiogram. The study was technically difficult. Due to body habitus. Contrast injection was performed. Exam performed portable in patient room. Images #[id number] & [id number] are the APICAL 2 CHAMBER VIEW. Left Ventricle Normal LV size. Mild segmental systolic dysfunction (see wall motion). The estimated ejection fraction is 45 %. Unable to assess diastolic dysfunction. Infero-Basal: Hypokinetic. Basal inferoseptal: Hypokinetic. Mid-Lateral : Hypokinetic. Mid-Inferior: Hypokinetic. Inferior Edison : Hypokinetic. Lateral Edison : Hypokinetic. Right Ventricle Normal RV size. Normal systolic function. Atria The left atrium is mildly enlarged. The right atrium is mildly enlarged. No doppler evidence for ASD. Mitral Valve There is mild mitral annular calcification. Mild diffuse mitral valve thickening. Mild (1+) mitral valve insufficiency. Tricuspid Valve Normal tricuspid valve. Trivial tricuspid valve insufficiency. Unable to estimate RV systolic pressure/pulmonary artery pressure due to technically difficult study. Aortic Valve Trisinus/trileaflet aortic valve. Normal aortic valve. Mild (1+) aortic valve insufficiency. Pulmonic Valve The pulmonic valve is not well visualized. Great Vessels Normal sized aortic root. Pericardium/Pleural Small pericardial effusion. There are no echocardiographic indications of cardiac tamponade. Medication Diluted definity 3.0ml given slow IV push to enhance endocardial definition. MMode/2D Measurements & Calculations LVIDd: 4.8 cm IVSd: 0.96 cm Ao root diam: 3.0 cm LVIDs: 3.6 cm LVPWd: 0.97 cm RVDd: 3.5 cm FS: 25.5 % LAV(MOD-bp): 48.9 ml LA A4 area: 18.6 cm2 LA dimension(2D): 4.5 cm LAV(MOD-bp) Indexed: 23.9 ml/m2 LAV(MOD-sp2): 41.4 ml LAV(MOD-sp4): 46.0 ml RA A4 area: 14.9 cm2 Doppler Measurements & Calculations MV E max charlie: 76.7 cm/sec Ao V2 max: 85.7 cm/sec LV V1 max: 69.5 cm/sec Ao max P.9 mmHg LV V1 max P.9 mmHg PA V2 max: 57.9 cm/sec Interpretation Summary The study was technically difficult. Contrast injection was performed. Mild segmental systolic dysfunction (see wall motion). The estimated ejection fraction is 45 %. The left atrium is mildly enlarged. The right atrium is mildly enlarged. There is mild mitral annular calcification. Mild diffuse mitral valve thickening. Mild (1+) mitral valve insufficiency. Trivial tricuspid valve insufficiency. Mild (1+) aortic valve insufficiency. Small pericardial effusion. There are no echocardiographic indications of cardiac tamponade. Unable to estimate RV systolic pressure/pulmonary artery pressure due to technically difficult study. Unable to assess diastolic dysfunction. Ordering Physician: Rodney Poon Referring Physician: Cheko Colbert Performed By: Betty Barbosa, SAVANNAH, RVT
[2019-05-24 07:00] LABS: White Blood Count 6.4 K/mm3 (4.4-11.0)
[2019-05-24 07:01] LABS: Differential Indicated SCAN CRITERIA MET; Hematocrit 43.9 % (37-47); Hemoglobin 13.8 g/dL (12.0-15.0); Mean Corp Hgb Conc 31.4 g/dL (32-36); Mean Corpuscular Hgb 26.8 pg (27.0-32.0); Mean Corpuscular Volume 85.2 fL (81-99); Mean Platelet Vol. 11.3 fl (6.2-12.0); POSITIVE COUNT YES; POSITIVE DIFFERENTIAL NO; POSITIVE MORPHOLOGY NO; Platelet Count 143 K/mm3 (150-450); RBC Distribution Width CV 14.3 % (11.6-14.6); RBC Distribution Width SD 44.8 fl (35.1-43.9); Red Blood Count 5.15 M/mm3 (4.2-5.4)
[2019-05-24 07:02] LABS: Absolute Neutrophil Count 3.9 X10^3/uL (2.0-7.7); Basophil# 0.03 X10^3/uL; Basophil% 0.5 % (0-1); Eosinophil# 0.06 X10^3/uL; Eosinophils% 0.9 % (0-5); Lymphocyte % 29.5 % (19-41); Monocyte# 0.51 X10^3/uL; Monocyte% 7.9 % (0-10); Neutrophil # 3.93 X10^3/uL (2.7-7.7)
[2019-05-24 07:03] LABS: Cholesterol 100 mg/dL (200); High Density Lipoprotein 55 mg/dL; Phosphorus 3.6 mg/dL (2.5-4.9); Platelet Estimate ADEQUATE (ADEQ); Platelet Morphology LARGE; Red Cell Morphology NORM C+C NORMAL (NORM C&C); T4 Free Direct 0.68 ng/dL (0.76-1.46); Thyroid Stim Hormone (TSH) 1.95 uIU/mL (0.358-3.74); Triglycerides 76 mg/dL; Very Low Density Lipoprotein 15 mg/dL (5-40)
[2019-05-24] MEDS: Ferrous Sulfate 325 MG Tablet PO (09:46)
[2019-05-24] MEDS: Aspirin 81 MG TAB.CHEW PO (09:46)
[2019-05-24] MEDS: APIXABAN 5 MG TABLET PO ×2 (09:46→22:28)
[2019-05-24 10:47] LABS: Free T3 1.6 pg/mL (2.18-3.98)
--- NOTE | 2019-05-24 11:04 | CASEMGMT ---
Case Management Progress Note: This song writer went to patient bedside x2 this morning to complete initial assessment and staff at bedside both times. Cm to continue to follow for assessment and care coordination needs. Akanksha Christie RNCM
[2019-05-24] MEDS: Ondansetron 4 MG/2 ML Vial IV (11:18)
--- NOTE | 2019-05-24 12:23 | CON.PCM_ITS ---
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 fib on Eliquis, cardiomyopathy, Graves' disease marijuana abuse admitted with seizure. History is obtained from patient, and medical records. Per documentation patient was with daughter yesterday evening (05/23/19) when patient had twitching movements and witnessed seizure activity by the daughter which lasted for few minutes, associated with tongue bite but no urinary incontinence, associated with postictal state, patient not aware of the event. At present patient did tell me that she possibly had a seizure about 2 years ago, per documentation daughter also believed that patient had may have had a seizure about 2 years ago but AED at present. At present patient denies any headache, dizziness, focal motor symptoms, no sensory loss, denies any visual disturbances or speech disturbances. CT head did not show any acute changes, CTA head/neck showed chronic right M1 occlusion, there was no hemodynamically significant stenosis or occlusion. Past Medical History Past Medical History (Chronic Problems): Chronic Problems Hyperlipidemia (Chronic) Iron deficiency anemia (Chronic) Graves disease (Chronic) Atrial fibrillation with RVR (Chronic) Cardiomyopathy (Chronic) HTN (hypertension) (Chronic) Multinodular goiter (nontoxic) (Chronic) Non-ST elevation [place] (NSTEMI) (Chronic) Allergies No Known Allergies Allergy (Verified 04/16/19 10:59) Home Medications: Ambulatory Orders Medication Instructions Recorded Aspirin [Aspirin, Baby] 81 mg PO DAILY@0800 tab.chew 09/12/16 Ferrous Sulfate 325 mg PO DAILY@0800 #30 tablet 02/11/17 atorvastatin 80 mg tablet 80 mg PO QHS #30 tab 11/11/17 Apixaban [Eliquis] 5 mg PO BID 04/16/19 Carvedilol [Coreg (Beta Rodolfo)] 6.25 mg PO BID #60 tab 05/26/19 Levetiracetam [Keppra] 750 mg PO BID #60 tab 05/26/19 Propylthiouracil 50 mg PO BID #90 tab 05/26/19 Surgical History: - - denies surgery Psychiatric History: No pertinent psych hx 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 Lives: With Family Smoking Status: Former smoker Alcohol: None Drugs: Marijuana - *Family History Maternal History Items: No pertinent history - in 40's unknown reason Paternal History Items: No pertinent history Sibling History Items: - - sister with diabetes Review of Systems Constitutional: Reports: - - Complete ROS negative except as documented in HPI - Physical Exam General: Alert HEENT: Normocephalic Neck: Supple Lungs: Normal air movement Cardiovascular: Normal S1, Normal S2 Abdomen: Bowel Sounds Present Extremities: No cyanosis Neurological: - - Conscious, alert, CN II through XII grossly intact, power 5/5 right upper and lower extremity, -5/5 Left UE/LE per patient she may have some residual mild left-sided weakness since her last stroke, no sensory loss, no cerebellar signs, gait deferred, reflexes + B/L B/S/T/K/A, no NR Psych/Mental Status: Normal Affect Vital Signs Temp Pulse Resp BP Pulse Ox 98.2 F 52 L 18 123/95 H 98 05/24/19 09:45 05/24/19 09:45 05/24/19 09:45 05/24/19 09:45 05/24/19 09:45 Oxygen Delivery Method Room Air Weight: 96.4 kg Body Mass Index (BMI) 34.1 Finger Stick Blood Glucose 72 Intake and Output for Last 24 Hours 05/22/19 05/23/19 05/24/19 23:59 23:59 23:59 Intake Total 250.0 / 250.0 1271.25 / 1271.25 Output Total 400 / 400 Balance 250.0 / 250.0 871.25 / 871.25 Laboratory Tests Past 24 Hrs 05/23/19 05/23/19 05/23/19 20:45 20:45 21:42 WBC 4.2 L RBC 4.89 Hgb 13.0 Hct 43.0 MCV 87.9 MCH 26.6 L MCHC 30.2 L RDW Std Deviation 46.5 H RDW Coeff of Suzette 14.5 Plt Count 167 MPV 12.3 H Immature Gran % (Auto) 0.200 Neut % (Auto) 53.2 Lymph % (Auto) 33.4 [place] % (Auto) 9.7 Eos % (Auto) 2.6 Baso % (Auto) 0.9 Absolute Neuts (auto) 2.2 Absolute Lymphs (auto) 1.41 Nucleated RBC % 0 Platelet Estimate Plt Morphology Comment RBC Morphology Sodium Potassium Chloride Carbon Dioxide Anion Gap BUN Creatinine Estim Creat Clear Calc Est GFR (MDRD) Af Amer Est GFR (MDRD) Non-Af BUN/Creatinine Ratio Glucose Calcium Phosphorus Magnesium Total Bilirubin GGT AST ALT Alkaline Phosphatase Total Protein Albumin Globulin Albumin/Globulin Ratio Triglycerides Cholesterol LDL Cholesterol VLDL Cholesterol HDL Cholesterol TSH Free T4 Free T3 pg/dL Prolactin Urine Color Yellow Urine Clarity Sl. Cloudy Urine pH 6.0 Ur Specific [place] 1.015 Urine Protein 30 H Urine Glucose (UA) Normal Urine Ketones Negative Urine Occult Blood 250 H Urine Nitrite Negative Urine Bilirubin Negative Urine Urobilinogen Normal Ur Leukocyte Esterase Negative Urine RBC 0 SEEN Urine WBC 0-5 SEEN Ur Squamous Epith Cells 0-5 SEEN Urine Bacteria 0 SEEN Hyaline Casts 0-5 SEEN Urine Mucus 1+ Urine Opiates Screen NEGATIVE Urine Methadone Screen NEGATIVE Ur Barbiturates Screen NEGATIVE Ur Phencyclidine Scrn NEGATIVE Ur Amphetamines Screen NEGATIVE U Methamphetamin-MDMA NEGATIVE U Benzodiazepines Scrn NEGATIVE Urine Cocaine Screen NEGATIVE U Cannabinoids Screen POSITIVE H Ur Drug Screen Comment Ethyl Alcohol 05/23/19 05/23/19 05/23/19 21:42 22:32 22:32 WBC RBC Hgb Hct MCV MCH MCHC RDW Std Deviation RDW Coeff of Suz[place] Plt Count MPV Immature Gran % (Auto) Neut % (Auto) Lymph % (Auto) [place] % (Auto) Eos % (Auto) Baso % (Auto) Absolute Neuts (auto) Absolute Lymphs (auto) Nucleated RBC % Platelet Estimate Plt Morphology Comment RBC Morphology Sodium Cancelled 143 Potassium Cancelled 4.5 Chloride Cancelled 108 H Carbon Dioxide Cancelled 27.0 Anion Gap Cancelled 8 BUN Cancelled 11 Creatinine Cancelled 0.68 Estim Creat Clear Calc Cancelled 94.72 Est GFR (MDRD) Af Amer Cancelled 119 Est GFR (MDRD) Non-Af Cancelled 98 BUN/Creatinine Ratio Cancelled 16.2 Glucose Cancelled 87 Calcium Cancelled 8.8 Phosphorus Magnesium Total Bilirubin Cancelled 0.70 GGT AST Cancelled 23 ALT Cancelled 24 Alkaline Phosphatase Cancelled 91 Total Protein Cancelled 7.1 Albumin Cancelled 3.8 Globulin Cancelled 3.3 Albumin/Globulin Ratio Cancelled 1.2 Triglycerides Cholesterol LDL Cholesterol VLDL Cholesterol HDL Cholesterol TSH Free T4 Free T3 pg/dL Prolactin Cancelled 3.4 Urine Color Urine Clarity Urine pH Ur Specific [place] Urine Protein Urine Glucose (UA) Urine Ketones Urine Occult Blood Urine Nitrite Urine Bilirubin Urine Urobilinogen Ur Leukocyte Esterase Urine RBC Urine WBC Ur Squamous Epith Cells Urine Bacteria Hyaline Casts Urine Mucus Urine Opiates Screen Urine Methadone Screen Ur Barbiturates Screen Ur Phencyclidine Scrn Ur Amphetamines Screen U Methamphetamin-MDMA U Benzodiazepines Scrn Urine Cocaine Screen U Cannabinoids Screen Ur Drug Screen Comment Ethyl Alcohol < 3.0 05/23/19 05/24/19 05/24/19 22:32 06:12 06:12 WBC 6.4 RBC 5.15 Hgb 13.8 Hct 43.9 MCV 85.2 MCH 26.8 L MCHC 31.4 L RDW Std Deviation 44.8 H RDW Coeff of [place] 14.3 Plt Count 143 L MPV 11.3 Immature Gran % (Auto) 0.200 Neut % (Auto) 61.0 Lymph % (Auto) 29.5 [place] % (Auto) 7.9 Eos % (Auto) 0.9 Baso % (Auto) 0.5 Absolute Neuts (auto) 3.9 Absolute Lymphs (auto) 1.90 Nucleated RBC % Platelet Estimate ADEQUATE Plt Morphology Comment LARGE RBC Morphology NORM C+C Sodium Potassium Chloride Carbon Dioxide Anion Gap BUN Creatinine Estim Creat Clear Calc Est GFR (MDRD) Af Amer Est GFR (MDRD) Non-Af BUN/Creatinine Ratio Glucose Calcium Phosphorus 3.6 Magnesium 2.0 Total Bilirubin GGT 29 AST ALT Alkaline Phosphatase Total Protein Albumin Globulin Albumin/Globulin Ratio Triglycerides 76 Cholesterol 100 LDL Cholesterol 30 VLDL Cholesterol 15 HDL Cholesterol 55 TSH 1.95 Free T4 0.68 L Free T3 pg/dL Prolactin Urine Color Urine Clarity Urine pH Ur Specific [place] Urine Protein Urine Glucose (UA) Urine Ketones Urine Occult Blood Urine Nitrite Urine Bilirubin Urine Urobilinogen Ur Leukocyte Esterase Urine RBC Urine WBC Ur Squamous Epith Cells Urine Bacteria Hyaline Casts Urine Mucus Urine Opiates Screen Urine Methadone Screen Ur Barbiturates Screen Ur Phencyclidine Scrn Ur Amphetamines Screen U Methamphetamin-MDMA U Benzodiazepines Scrn Urine Cocaine Screen U Cannabinoids Screen Ur Drug Screen Comment Ethyl Alcohol 05/24/19 06:20 WBC RBC Hgb Hct MCV MCH MCHC RDW Std Deviation RDW Coeff of Suzette Plt Count MPV Immature Gran % (Auto) Neut % (Auto) Lymph % (Auto) [place] % (Auto) Eos % (Auto) Baso % (Auto) Absolute Neuts (auto) Absolute Lymphs (auto) Nucleated RBC % Platelet Estimate Plt Morphology Comment RBC Morphology Sodium Potassium Chloride Carbon Dioxide Anion Gap BUN Creatinine Estim Creat Clear Calc Est GFR (MDRD) Af Amer Est GFR (MDRD) Non-Af BUN/Creatinine Ratio Glucose Calcium Phosphorus Magnesium Total Bilirubin GGT AST ALT Alkaline Phosphatase Total Protein Albumin Globulin Albumin/Globulin Ratio Triglycerides Cholesterol LDL Cholesterol VLDL Cholesterol HDL Cholesterol TSH Free T4 Free T3 pg/dL 1.6 L Prolactin Urine Color Urine Clarity Urine pH Ur Specific [place] Urine Protein Urine Glucose (UA) Urine Ketones Urine Occult Blood Urine Nitrite Urine Bilirubin Urine Urobilinogen Ur Leukocyte Esterase Urine RBC Urine WBC Ur Squamous Epith Cells Urine Bacteria Hyaline Casts Urine Mucus Urine Opiates Screen Urine Methadone Screen Ur Barbiturates Screen Ur Phencyclidine Scrn Ur Amphetamines Screen U Methamphetamin-MDMA U Benzodiazepines Scrn Urine Cocaine Screen U Cannabinoids Screen Ur Drug Screen Comment Ethyl Alcohol Assessment/Plan All Active Problems Seizure (Acute) Noncompliance with medication regimen (Acute) Cardioembolic stroke (Acute) Left arm weakness (Acute) The patient is a 49 year old AAF with PMH HTN, HLD, history of stroke (right MCA stroke with right M1 occlusion and 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 fib on Eliquis, cardiomyopathy, Graves' disease marijuana abuse admitted with seizure. History is obtained from patient, and medical records. Per documentation patient was with daughter yesterday evening (05/23/19) when patient had twitching movements and witnessed seizure activity by the daughter which lasted for few minutes, associated with tongue bite but no urinary incontinence, associated with postictal state, patient not aware of the event. At present patient did tell me that she possibly had a seizure about 2 years ago, per documentation daughter also believed that patient had may have had a seizure about 2 years ago but AED at present. Per patient she lives with her family, denies any frequent falls, does not drive at baseline. At present patient denies any headache, dizziness, focal motor symptoms, no sensory loss, denies any visual disturbances or speech disturbances. CT head did not show any acute changes, CTA head/neck showed chronic right M1 occlusion, there was no hemodynamically significant stenosis or occlusion. 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 Per patient she does not drive ?GI/DVT prophylaxis ?Fall precautions ?Further medical management per hospitalist team ?Follow-up with neurology as outpatient in 4 to 6 weeks ?Please call with questions if any ?Thank you for allowing us to participate in patient's care and management This note has been generated using [employer] dictation software. It may contain incorrect words, spellings and punctuation's that were not noted in the review of the note prior to signing.
--- NOTE | 2019-05-24 12:38 | EEG ---
- Electroencephalogram Date of service 05/24/2019 History EEG is being done in this 49 yr F to rule out seizures EEG Description: This is an 18 channel EEG with 10-20 lead placement system. Bipolar montages, and Referential montages were reviewed. Photic stimulation was performed but Hyperventilation was not performed. The posterior dominant rhythm is 10 HZ synchronous, symmetric, reacting to eye opening and closing. Photo stimulation elicited normal driving response but no abnormal photoparoxysmal response, Hyperventilation was not performed. Sleep was identified. There is no abnormal background slowing noted. There was no epileptiform discharges or electrographic seizures noted during this recording. EEG Interpretation This is a normal awake and asleep EEG. There is no epileptiform discharges or electrographic seizures noted during the record.
--- NOTE | 2019-05-24 13:24 | CASEMGMT ---
This RN CM to room to complete CM assessment and pt is sleeping without distress at this time. Radiology to room and need to take pt for testing at this time. CM will attempt again later. S[place]en RN CM
--- NOTE | 2019-05-24 13:27 | PN_ITS ---
Patient Problems: Active and Suspected Problems Seizure (Acute) Subjective: Ongoing lethargic. Difficulty speaking. Bit tongue - significant pain with eating. No fever/chills. Smoked marijuana prior to seizure. Bradycardic. No LH/Dizziness. No headache. No pressure/palpitations/CP/SOB. States Dr. Lyles is her neurologist. Temporarily took medication after 1st seizure 2 months ago, however she no longer takes maintenance seizure meds, she cannot remember what she used to take. - Physical Exam General: Alert, Oriented x3, Cooperative, Lethargic HEENT: Atraumatic, PERRLA, EOMI, Normocephalic Neck: Supple, No JVD, Negative Carotid Bruits Lungs: Clear to auscultation, Normal air movement Cardiovascular: Regular rate, No murmurs Abdomen: Bowel Sounds Present, Soft, Non Tender Extremities: No edema, Capillary Refill Less than 3 Seconds Skin: No rashes, No breakdown Musculoskeletal: No Tenderness to Palpation of Joints or Extremities Neurological: Cranial nerves II-XII grossly intact Psych/Mental Status: Normal Affect, Appropriate, Alert and oriented to time, place, person, mood and affect Vital Signs Temp Pulse Resp BP Pulse Ox 98.2 F 52 L 18 123/95 H 98 05/24/19 09:45 05/24/19 09:45 05/24/19 09:45 05/24/19 09:45 05/24/19 09:45 Oxygen Delivery Method Room Air Weight: 212 lb 8.41 oz Body Mass Index (BMI) 34.1 Finger Stick Blood Glucose 72 Intake and Output for Last 24 Hours 05/22/19 05/23/19 05/24/19 23:59 23:59 23:59 Intake Total 250.0 / 250.0 1271.25 / 1271.25 Output Total 400 / 400 Balance 250.0 / 250.0 871.25 / 871.25 Laboratory Tests Past 24 Hrs 05/23/19 05/23/19 05/23/19 20:45 20:45 21:42 WBC 4.2 L RBC 4.89 Hgb 13.0 Hct 43.0 MCV 87.9 MCH 26.6 L MCHC 30.2 L RDW Std Deviation 46.5 H RDW Coeff of Suzette 14.5 Plt Count 167 MPV 12.3 H Immature Gran % (Auto) 0.200 Neut % (Auto) 53.2 Lymph % (Auto) 33.4 [place] % (Auto) 9.7 Eos % (Auto) 2.6 Baso % (Auto) 0.9 Absolute Neuts (auto) 2.2 Absolute Lymphs (auto) 1.41 Nucleated RBC % 0 Platelet Estimate Plt Morphology Comment RBC Morphology Sodium Potassium Chloride Carbon Dioxide Anion Gap BUN Creatinine Estim Creat Clear Calc Est GFR (MDRD) Af Amer Est GFR (MDRD) Non-Af BUN/Creatinine Ratio Glucose Calcium Phosphorus Magnesium Total Bilirubin GGT AST ALT Alkaline Phosphatase Total Protein Albumin Globulin Albumin/Globulin Ratio Triglycerides Cholesterol LDL Cholesterol VLDL Cholesterol HDL Cholesterol TSH Free T4 Free T3 pg/dL Prolactin Urine Color Yellow Urine Clarity Sl. Cloudy Urine pH 6.0 Ur Specific [place] 1.015 Urine Protein 30 H Urine Glucose (UA) Normal Urine Ketones Negative Urine Occult Blood 250 H Urine Nitrite Negative Urine Bilirubin Negative Urine Urobilinogen Normal Ur Leukocyte Esterase Negative Urine RBC 0 SEEN Urine WBC 0-5 SEEN Ur Squamous Epith Cells 0-5 SEEN Urine Bacteria 0 SEEN Hyaline Casts 0-5 SEEN Urine Mucus 1+ Urine Opiates Screen NEGATIVE Urine Methadone Screen NEGATIVE Ur Barbiturates Screen NEGATIVE Ur Phencyclidine Scrn NEGATIVE Ur Amphetamines Screen NEGATIVE U Methamphetamin-MDMA NEGATIVE U Benzodiazepines Scrn NEGATIVE Urine Cocaine Screen NEGATIVE U Cannabinoids Screen POSITIVE H Ur Drug Screen Comment Ethyl Alcohol 05/23/19 05/23/19 05/23/19 21:42 22:32 22:32 WBC RBC Hgb Hct MCV MCH MCHC RDW Std Deviation RDW Coeff of Suzette Plt Count MPV Immature Gran % (Auto) Neut % (Auto) Lymph % (Auto) [place] % (Auto) Eos % (Auto) Baso % (Auto) Absolute Neuts (auto) Absolute Lymphs (auto) Nucleated RBC % Platelet Estimate Plt Morphology Comment RBC Morphology Sodium Cancelled 143 Potassium Cancelled 4.5 Chloride Cancelled 108 H Carbon Dioxide Cancelled 27.0 Anion Gap Cancelled 8 BUN Cancelled 11 Creatinine Cancelled 0.68 Estim Creat Clear Calc Cancelled 94.72 Est GFR (MDRD) Af Amer Cancelled 119 Est GFR (MDRD) Non-Af Cancelled 98 BUN/Creatinine Ratio Cancelled 16.2 Glucose Cancelled 87 Calcium Cancelled 8.8 Phosphorus Magnesium Total Bilirubin Cancelled 0.70 GGT AST Cancelled 23 ALT Cancelled 24 Alkaline Phosphatase Cancelled 91 Total Protein Cancelled 7.1 Albumin Cancelled 3.8 Globulin Cancelled 3.3 Albumin/Globulin Ratio Cancelled 1.2 Triglycerides Cholesterol LDL Cholesterol VLDL Cholesterol HDL Cholesterol TSH Free T4 Free T3 pg/dL Prolactin Cancelled 3.4 Urine Color Urine Clarity Urine pH Ur Specific [place] Urine Protein Urine Glucose (UA) Urine Ketones Urine Occult Blood Urine Nitrite Urine Bilirubin Urine Urobilinogen Ur Leukocyte Esterase Urine RBC Urine WBC Ur Squamous Epith Cells Urine Bacteria Hyaline Casts Urine Mucus Urine Opiates Screen Urine Methadone Screen Ur Barbiturates Screen Ur Phencyclidine Scrn Ur Amphetamines Screen U Methamphetamin-MDMA U Benzodiazepines Scrn Urine Cocaine Screen U Cannabinoids Screen Ur Drug Screen Comment Ethyl Alcohol < 3.0 05/23/19 05/24/19 05/24/19 22:32 06:12 06:12 WBC 6.4 RBC 5.15 Hgb 13.8 Hct 43.9 MCV 85.2 MCH 26.8 L MCHC 31.4 L RDW Std Deviation 44.8 H RDW Coeff of [place] 14.3 Plt Count 143 L MPV 11.3 Immature Gran % (Auto) 0.200 Neut % (Auto) 61.0 Lymph % (Auto) 29.5 [place] % (Auto) 7.9 Eos % (Auto) 0.9 Baso % (Auto) 0.5 Absolute Neuts (auto) 3.9 Absolute Lymphs (auto) 1.90 Nucleated RBC % Platelet Estimate ADEQUATE Plt Morphology Comment LARGE RBC Morphology NORM C+C Sodium Potassium Chloride Carbon Dioxide Anion Gap BUN Creatinine Estim Creat Clear Calc Est GFR (MDRD) Af Amer Est GFR (MDRD) Non-Af BUN/Creatinine Ratio Glucose Calcium Phosphorus 3.6 Magnesium 2.0 Total Bilirubin GGT 29 AST ALT Alkaline Phosphatase Total Protein Albumin Globulin Albumin/Globulin Ratio Triglycerides 76 Cholesterol 100 LDL Cholesterol 30 VLDL Cholesterol 15 HDL Cholesterol 55 TSH 1.95 Free T4 0.68 L Free T3 pg/dL Prolactin Urine Color Urine Clarity Urine pH Ur Specific [place] Urine Protein Urine Glucose (UA) Urine Ketones Urine Occult Blood Urine Nitrite Urine Bilirubin Urine Urobilinogen Ur Leukocyte Esterase Urine RBC Urine WBC Ur Squamous Epith Cells Urine Bacteria Hyaline Casts Urine Mucus Urine Opiates Screen Urine Methadone Screen Ur Barbiturates Screen Ur Phencyclidine Scrn Ur Amphetamines Screen U Methamphetamin-MDMA U Benzodiazepines Scrn Urine Cocaine Screen U Cannabinoids Screen Ur Drug Screen Comment Ethyl Alcohol 05/24/19 06:20 WBC RBC Hgb Hct MCV MCH MCHC RDW Std Deviation RDW Coeff of [place] Plt Count MPV Immature Gran % (Auto) Neut % (Auto) Lymph % (Auto) [place] % (Auto) Eos % (Auto) Baso % (Auto) Absolute Neuts (auto) Absolute Lymphs (auto) Nucleated RBC % Platelet Estimate Plt Morphology Comment RBC Morphology Sodium Potassium Chloride Carbon Dioxide Anion Gap BUN Creatinine Estim Creat Clear Calc Est GFR (MDRD) Af Amer Est GFR (MDRD) Non-Af BUN/Creatinine Ratio Glucose Calcium Phosphorus Magnesium Total Bilirubin GGT AST ALT Alkaline Phosphatase Total Protein Albumin Globulin Albumin/Globulin Ratio Triglycerides Cholesterol LDL Cholesterol VLDL Cholesterol HDL Cholesterol TSH Free T4 Free T3 pg/dL 1.6 L Prolactin Urine Color Urine Clarity Urine pH Ur Specific [place] Urine Protein Urine Glucose (UA) Urine Ketones Urine Occult Blood Urine Nitrite Urine Bilirubin Urine Urobilinogen Ur Leukocyte Esterase Urine RBC Urine WBC Ur Squamous Epith Cells Urine Bacteria Hyaline Casts Urine Mucus Urine Opiates Screen Urine Methadone Screen Ur Barbiturates Screen Ur Phencyclidine Scrn Ur Amphetamines Screen U Methamphetamin-MDMA U Benzodiazepines Scrn Urine Cocaine Screen U Cannabinoids Screen Ur Drug Screen Comment Ethyl Alcohol Medical Necessity - Tobacco Use Smoking Status: Former smoker Assessment/Plan All Active Problems Seizure (Acute) Noncompliance with medication regimen (Acute) Cardioembolic stroke (Acute) Left arm weakness (Acute) 1. Seizure - still appears very lethargic. last 2 months prior, has not been taking home seizure medications. Neuro following. On Keppra. EEG normal. MRI pending. CTA head/neck done. Seizure precautions. No driving at dc. 2. Chronic Afib with bradycardia - Thyroid suppressed, hold next dose PTU, plan to decrease dose. Coreg stopped. Continue eliquis. Echo shows EF 45%, small pericardial effusion, no tamponade. No significant change since echo from 2017. 3. Hx prior CVA - aspirin statin eliquis 4. Graves dz - T4/T3 low, possibly contributing to #2, held dose, plan for small dose deescalation and outpatient follow up with thyroid studies. 5. CAD with CM - asa/coreg 6. Iron def anemia - on po iron, Hgb normal. 7. Marijuana abuse DVT ppx: eliquis DC planning: PTOT. This patient was seen by Bakari Moran PA-C under the supervision of Dr. Bass.
[2019-05-24] MEDS: 0.9% NaCl IVPB Med Flush (250 mL) 15 ML IV (22:19)
[2019-05-24] MEDS: 0.9% NaCl Peripheral Flush Adult/Peds IV ×2 (22:20→23:30)
[2019-05-24] MEDS: Acetaminophen 325 MG Tablet 650 MG PO (22:28)
[2019-05-25] VITALS (11 sets, daily range): BP systolic 100–128; BP diastolic 64–79; PULSE 34–63; RESP 16–20; TEMP 36.6–36.8; O2SAT 95–98
--- NOTE | 2019-05-25 04:26 | EKG12_ITS ---
Test Reason : AM EKG Blood Pressure : / mmHG Vent. Rate : 058 BPM Atrial Rate : 056 BPM P-R Int : 000 ms QRS Dur : 082 ms QT Int : 498 ms P-R-T Axes : 000 096 110 degrees QTc Int : 488 ms Atrial fibrillation with slow ventricular response Rightward axis Low voltage QRS Prolonged QT Abnormal ECG Confirmed by ONEAL VICTOR, TONIA ([id number]), supervising editor trailer STAS HANKINS ([id number] on 06/01/2019 10:29:52 AM Referred By: STEPHAN Confirmed By:MORIAH NO MD
[2019-05-25 07:20] LABS: Anion Gap 4 (5-15); BUN 9 mg/dL (7-18); BUN/Creat Ratio 13.4 RATIO (10-20); Calcium,Total 8.1 mg/dL (8.5-10.1); Chloride 109 mmol/L (98-107); Creatinine, Serum 0.67 mg/dL (0.55-1.02); EST Glomerular Filtration Rate 100 mL/min (>60); Est Glom Filt Rate - Afr Amer 120 mL/min (>60); Estimated Creatinine Clearance 96.13 ml/min; Glucose 82 mg/dL (74-106); Potassium 3.6 mmol/L (3.5-5.1); Sodium Level 141 mmol/L (136-145)
--- NOTE | 2019-05-25 08:48 | PCA ---
Spoke with patient about setting up transport to her follow up appt, PT states she would like us to set it up for her. Transport set up thru [facility] with [facility].
[2019-05-25] MEDS: APIXABAN 5 MG TABLET PO ×2 (09:22→21:18)
[2019-05-25] MEDS: Ferrous Sulfate 325 MG Tablet PO (09:22)
[2019-05-25] MEDS: Aspirin 81 MG TAB.CHEW PO (09:22)
[2019-05-25] MEDS: 0.9% NaCl Peripheral Flush Adult/Peds IV ×2 (09:49→21:16)
[2019-05-25] MEDS: 0.9% NaCl IVPB Med Flush (250 mL) 15 ML IV (09:50)
--- NOTE | 2019-05-25 10:04 | CASEMGMT ---
JASVIR GIRON assessment: Face to Face with patient for initial transition planning/care coordination assessment. JASVIR GIRON introduced self and role at [facility], pt voices understanding and consents to assessment at this time. Pt is sitting up in chair in no distress at this time. Pt is A/Ox4 at this time and answers most questions appropriately at this time. Care providers, pharmacy, and demographics verified at this time. PCP: [facility] Specialists: Pt states she has some specialists but cannot remember names at this time. Preferred Pharmacy: [facility] Insurance: [facility] Prescription Benefit: [employer] Living Will/HPOA: Pt states she may have LW/HPOA but she is unsure. Pt states that her aunt 'set all that up for her.' LNOK: Angelique Carrasco, sister; Ishmael Carrasco, sister Living Arrangements: Pt states lives with her 20 and 14 yr old children on main level of 1 story home and states no concerns at home at this time. Pt states that her children help her at home with ADL's. Transportation: Pt states she uses [employer] for transportation and states no further transportation concerns at this time. DME/HHC: Pt states has a cane at home and states no need for any further DME at this time. Pt states has had HHC set up in the past but unsure of company name. Pt states no hx of SNF in the past. Therapy states no therapy recommended at this time. Pt states no concerns with going home at time of discharge. Pt states is disabled. Pt states does not smoke or drink ETOH. Pt states no further concerns/needs at this time. CM to follow for any further discharge planning/needs. Advised pt to ask for CM if any further questions/concerns/needs arise, voices understanding. Pt Goal: Home Plan: [place] JASVIR GIRON
--- NOTE | 2019-05-25 12:57 | PCM.PROGNOTE ---
<Bakari Moran - Last Filed: 05/25/19 12:57> Subjective: Ongoing difficulty speaking due to tongue biting. No muscle spasm/contractions. She is less lethargic. No bleeding. No WEST, dizziness, LH. She is still somewhat sven, no palpitations, no CP/tightness/heaviness. - Physical Exam General: Alert, Oriented x3, Cooperative HEENT: Atraumatic, PERRLA, EOMI, Normocephalic Neck: Supple, No JVD, Negative Carotid Bruits Lungs: Clear to auscultation, Normal air movement Cardiovascular: Regular rate, No murmurs Abdomen: Bowel Sounds Present, Soft, Non Tender Extremities: No edema, Capillary Refill Less than 3 Seconds Skin: No rashes, No breakdown Musculoskeletal: No Tenderness to Palpation of Joints or Extremities Neurological: Cranial nerves II-XII grossly intact Psych/Mental Status: Normal Affect, Appropriate, Alert and oriented to time, place, person, mood and affect Vital Signs Temp Pulse Resp BP Pulse Ox 98.0 F 50 L 18 114/72 95 05/25/19 09:09 05/25/19 09:09 05/25/19 09:09 05/25/19 09:09 05/25/19 09:09 Oxygen Delivery Method Room Air Weight: 212 lb 8.41 oz Body Mass Index (BMI) 34.1 Finger Stick Blood Glucose 72 Intake and Output for Last 24 Hours 05/23/19 05/24/19 05/25/19 23:59 23:59 23:59 Intake Total 250.0 / 250.0 2035.00 / 2035.00 174.25 / 174.25 Output Total 400 / 400 0 / 0 Balance 250.0 / 250.0 1635.00 / 1635.00 174.25 / 174.25 Laboratory Tests Past 24 Hrs 05/25/19 06:09 Sodium 141 Potassium 3.6 Chloride 109 H Carbon Dioxide 28.0 Anion Gap 4 L BUN 9 Creatinine 0.67 Estim Creat Clear Calc 96.13 Est GFR (MDRD) Af Amer 120 Est GFR (MDRD) Non-Af 100 BUN/Creatinine Ratio 13.4 Glucose 82 Calcium 8.1 L Medical Necessity - Tobacco Use Smoking Status: Former smoker Assessment/Plan All Active Problems Seizure (Acute) Noncompliance with medication regimen (Acute) Cardioembolic stroke (Acute) Left arm weakness (Acute) 1. Seizure - mentation improved. No changes per neurology.Continue Keppra. MRI with chronic right MCA infarct. CTA head/neck done. Seizure precautions. No driving at dc. 2. Chronic Afib with bradycardia - Thyroid suppressed, coreg held, now holding PTU entirely. Needs f/u with endocrinology. She has not seen a specialist for this, she is prescribed PTU by Dr. Solano. 3. Hx prior CVA - aspirin statin eliquis 4. Graves dz - as per #2. 5. CAD with CM - asa/coreg 6. Iron def anemia - on po iron, Hgb normal. 7. Marijuana abuse DVT ppx: eliquis DC planning: PTOT. This patient was seen by Bakari Moran PA-C under the supervision of Dr. Bass. <Maira Basse - Last Filed: 06/01/19 17:47> - Physical Exam Vital Signs Temp Pulse Resp BP Pulse Ox 98.1 F 77 18 128/80 H 96 05/26/19 09:25 05/26/19 09:25 05/26/19 09:25 05/26/19 09:25 05/26/19 09:25 Oxygen Delivery Method Room Air Weight: 212 lb 8.41 oz Body Mass Index (BMI) 34.1 Finger Stick Blood Glucose 72 Assessment/Plan EEG negative for seizures however she was on Keppra at the time. She is still somewhat lethargic. Smokes Marijuana daily. ECHO with a 45% EF with wall motion abnormalities. LEXI, mild. MRI brain with no acute findings. Chronic R MCA infarct. Troponin did not trend. TSH is very low and the T4 is increased.......Coreg beig held for bradycardia and the PTU is being adjusted. I agree with the PE as documented by Bakari Moran with no exceptions. Impressions 1. NSTEMI - ruled out 2. new onset seizures - will continue the Keppra 3. marijuana abuse 4. CAD with ischemic CM and a 45% EF 5. Graves's disease - non-compliant with follow up with an computer network support specialist in the past 2 years. Suspect she is non-compliant with meds as well Smoking cessation counselling given. Code Visit Inpatient E&M: 01864 Subs Hosp L2
--- NOTE | 2019-05-25 13:18 | PCM.PN.NEU ---
Subjective: No further witnessed seizures in the hospital. Care discussed with the hospitalist team. - Physical Exam General: Alert HEENT: Normocephalic Neck: Supple Lungs: Normal air movement Cardiovascular: Normal S1, Normal S2 Abdomen: Bowel Sounds Present Extremities: No cyanosis Neurological: - - Conscious, alert, CN II through XII grossly intact, power 5/5 right upper and lower extremity, -5/5 Left UE/LE per patient she may have some residual mild left-sided weakness since her last stroke, no sensory loss, no cerebellar signs, gait deferred, reflexes + B/L B/S/T/K/A, no NR Psych/Mental Status: Normal Affect Vital Signs Temp Pulse Resp BP Pulse Ox 98.0 F 50 L 18 114/72 95 05/25/19 09:09 05/25/19 09:09 05/25/19 09:09 05/25/19 09:09 05/25/19 09:09 Oxygen Delivery Method Room Air Weight: 96.4 kg Body Mass Index (BMI) 34.1 Finger Stick Blood Glucose 72 Intake and Output for Last 24 Hours 05/23/19 05/24/19 05/25/19 23:59 23:59 23:59 Intake Total 250.0 / 250.0 2035.00 / 2035.00 174.25 / 174.25 Output Total 400 / 400 0 / 0 Balance 250.0 / 250.0 1635.00 / 1635.00 174.25 / 174.25 Laboratory Tests Past 24 Hrs 05/25/19 06:09 Sodium 141 Potassium 3.6 Chloride 109 H Carbon Dioxide 28.0 Anion Gap 4 L BUN 9 Creatinine 0.67 Estim Creat Clear Calc 96.13 Est GFR (MDRD) Af Amer 120 Est GFR (MDRD) Non-Af 100 BUN/Creatinine Ratio 13.4 Glucose 82 Calcium 8.1 L Medical Necessity - Tobacco Use Smoking Status: Former smoker Assessment/Plan All Active Problems Seizure (Acute) Noncompliance with medication regimen (Acute) Cardioembolic stroke (Acute) Left arm weakness (Acute) The patient is a 49 year old AAF with PMH HTN, HLD, history of stroke (right MCA stroke with right M1 occlusion and right DIRECTOR DIABETES), A. fib on Eliquis, cardiomyopathy, Graves' disease marijuana abuse admitted with seizure. History is obtained from patient, and medical records. Per documentation patient was with daughter yesterday evening (05/23/19) when patient had twitching movements and witnessed seizure activity by the daughter which lasted for few minutes, associated with tongue bite but no urinary incontinence, associated with postictal state, patient not aware of the event. At present patient did tell me that she possibly had a seizure about 2 years ago, per documentation daughter also believed that patient had may have had a seizure about 2 years ago but AED at present. Per patient she lives with her family, denies any frequent falls, does not drive at baseline. At present patient denies any headache, dizziness, focal motor symptoms, no sensory loss, denies any visual disturbances or speech disturbances. CT head did not show any acute changes, CTA head/neck showed chronic right M1 occlusion, there was no hemodynamically significant stenosis or occlusion. 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 Per patient she does not drive ?GI/DVT prophylaxis ?Fall precautions ?Further medical management per hospitalist team ?Follow-up with neurology as outpatient in 4 to 6 weeks ?Please call with questions if any ?Thank you for allowing us to participate in patient's care and management This note has been generated using [employer] dictation software. It may contain incorrect words, spellings and punctuation's that were not noted in the review of the note prior to signing.
[2019-05-25] MEDS: Atorvastatin Calcium 80 MG Tablet PO (21:18)
--- NOTE | 2019-05-25 22:12 | NURSING ---
Attempted IV x 2, unable to get new IV site. Called Ann-Marie [facility] Child Care Leader to start.
[2019-05-26 02:59] VITALS: PULSE 65
[2019-05-26 03:05] VITALS: BP 127/78; PULSE 59; RESP 16; TEMP 36.8; O2SAT 93
[2019-05-26 07:12] VITALS: PULSE 52
[2019-05-26 07:46] VITALS: O2SAT 90
[2019-05-26 09:25] VITALS: BP 128/80; PULSE 77; RESP 18; TEMP 36.7; O2SAT 96
[2019-05-26] MEDS: Aspirin 81 MG TAB.CHEW PO (09:27)
[2019-05-26] MEDS: APIXABAN 5 MG TABLET PO (09:27)
[2019-05-26] MEDS: Ferrous Sulfate 325 MG Tablet PO (09:27)
--- NOTE | 2019-05-26 11:15 | PCM.DC ---
- Discharge Diagnoses Current Active Problems: Current Active and Chronic Problems Seizure (Acute) You will use the following diet at home:: Cardiac Discharge Activity: May Not Drive - for at least 6 months or until approved by neurology Call your doctor if you observe: Shortness of breath, Dizziness, Fainting spells, Chest pain Allergies/Adverse Reactions: Allergies No Known Allergies Allergy (Verified 04/16/19 10:59) Medications to take at Discharge Aspirin [Aspirin, Baby] 81 mg PO DAILY@0800 tab.chew 09/12/16 Ferrous Sulfate 325 mg PO DAILY@0800 #30 tablet 02/11/17 atorvastatin 80 mg tablet 80 mg PO QHS #30 tab 11/11/17 Apixaban [Eliquis] 5 mg PO BID 04/16/19 Carvedilol [Coreg (Beta Rodolfo)] 6.25 mg PO BID #60 tab 05/26/19 Levetiracetam [Keppra] 750 mg PO BID #60 tab 05/26/19 Propylthiouracil 50 mg PO BID #90 tab 05/26/19 The following prescriptions were given: Levetiracetam [Keppra] 750 mg PO BID #60 tab Transmission Status: Pending to [facility] Primary Care Physician: Cheko Colbert MD [Primary Care Provider] - Please follow up with your Primary Care Physician in: 1 Week Test Results: Test results from this visit will be discussed in further detail at your follow-up appointment, if applicable. Please Follow Up With: Earnest Pate MD When: 1-2 weeks or as soon as possible Please Follow Up With: Med Montero MD When: 4-6 Weeks Proposed Discharge Date: 05/26/19
--- NOTE | 2019-05-26 11:21 | DS.PCM_ITS ---
<Selene Travis - Last Filed: 05/26/19 12:28> Discharge Date and Diagnosis Date of Admission: 05/23/19 Date of Discharge: 05/26/19 - Primary Discharge Diagnosis Active and Suspected Problems 1. 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 History of Graves' disease, hyperthyroidism 4. Bradycardia 5. Daily illicit drug use with marijuana 6. Chronic atrial fibrillation with chronic anticoagulation with Eliquis 7. CAD/cardiomyopathy with 45% EF/history of NSTEMI 8. Iron deficiency anemia - Secondary Discharge Diagnosis Chronic Problems Hyperlipidemia (Chronic) Iron deficiency anemia (Chronic) Graves disease (Chronic) Atrial fibrillation with RVR (Chronic) Cardiomyopathy (Chronic) HTN (hypertension) (Chronic) Multinodular goiter (nontoxic) (Chronic) Non-ST elevation KS (NSTEMI) (Chronic) Hospital Course and Treatment Imaging Results: Diagnostic Data Brain CT 05/23/19 20:25 IMPRESSION: Within the right cerebral hemisphere with encephalomalacia within the is involved regions. No acute ischemia perceived ASPECT 10. Individualized dose optimization techniques were used for this CT. at 2151 Reported and signed by: Serge Richard MD Electronically Signed: Serge Richard MD at 21:49 EDT Tel , Service support , Chest X-Ray 05/23/19 20:30 IMPRESSION: Stable cardiomegaly. at 2048 Reported and signed by: Serge Richard MD Electronically Signed: Serge Richard MD at 20:46 EDT Tel , Service support , Head/Neck CTA 05/23/19 23:16 IMPRESSION: Diminished flow to the right MCA compared to the left MCA but with peripheral flow. The amount of flow to the right MCA appears to be greater on the current study then on the previous study. Previously there was asymmetric flow to the MCAs as well. I do not appreciate an acute occlusion to the right MCA or any of its branches.. Normal CTA neck other than tortuous vessels Individualized dose optimization techniques were used for this CT. at 0035 Reported and signed by: Serge Richard MD Electronically Signed: Serge Richard MD at 0:34 EDT Tel , Service support , Brain MRI 05/24/19 05:55 IMPRESSION: Chronic right middle cerebral artery infarct but no acute abnormality. Electronically Signed: Domenico Giles MD at 15:15 EDT Tel , Service support , Dr. Montero- Neurology Operations: None Procedures: 2-D Echocardiogram, Electroencephalogram Summary of Care Provided: The patient is a 49 year old F admitted 05/23/2019 due to seizure-like episode. 1. 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 EEG shows no appreciable discharges or graphic seizures. Follow-up with neurology in 4 to 6 weeks. No driving for at least 6 months. Continue Keppra 750 mg p.o. twice daily at discharge. Follow-up with primary care physician in 1 week. 2. 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 3. History of Graves' disease, hyperthyroidism-TSH 1.9. Free T4 0.68. Free T3 1.6. PTU dose decreased to 50 mg twice daily until further follow-up with endocrinology. Referred to Dr. Pate, endocrinology for further evaluation. 4. Bradycardia-carvedilol decreased to 6.25 mg twice daily. PTU decreased. 5. Daily illicit drug use with marijuana-urine tox positive for cannabinoids, negative for other substances. 6. Chronic atrial fibrillation with chronic anticoagulation with Eliquis 7. CAD/cardiomyopathy with 45% EF/history of NSTEMI-continue aspirin, statin, carvedilol. 8. Iron deficiency anemia-continue iron supplementation. General: Alert, Oriented x3, Cooperative HEENT: Atraumatic, PERRLA, EOMI, Normocephalic Neck: Supple, No JVD, Negative Carotid Bruits Lungs: Clear to auscultation, Normal air movement Cardiovascular: Regular rate, No murmurs Abdomen: Bowel Sounds Present, Soft, Non Tender Extremities: No edema, Capillary Refill Less than 3 Seconds Skin: No rashes, No breakdown Musculoskeletal: No Tenderness to Palpation of Joints or Extremities Neurological: Cranial nerves II-XII grossly intact Psych/Mental Status: Normal Affect, Appropriate, Alert and oriented to time, place, person, mood and affect Patient seen and examined prior to discharge. Physical assessment as noted above. Patient is stable for discharge with follow up recommendations as noted above. This patient was seen by JAYLON Grady under the supervision of Dr. Bass. - Physical Exam Vital Signs Temp Pulse Resp BP Pulse Ox 98.1 F 77 18 128/80 H 96 05/26/19 09:25 05/26/19 09:25 05/26/19 09:25 05/26/19 09:25 05/26/19 09:25 Oxygen Delivery Method Room Air Weight: 212 lb 8.41 oz Body Mass Index (BMI) 34.1 Finger Stick Blood Glucose 72 Intake and Output for Last 24 Hours 05/24/19 05/25/19 05/26/19 23:59 23:59 23:59 Intake Total 2035.00 / 2035.00 621.75 / 621.75 225.0 / 225.0 Output Total 400 / 400 0 / 0 Balance 1635.00 / 1635.00 621.75 / 621.75 225.0 / 225.0 Discharge Diet: Low fat/ Low Cholesterol Discharge Activity: Return to Normal Activity Call your doctor if you observe: Shortness of breath, Dizziness, Fainting spells, Chest pain Home Medications: Medications to take at Discharge Aspirin [Aspirin, Baby] 81 mg PO DAILY@0800 tab.chew 09/12/16 Ferrous Sulfate 325 mg PO DAILY@0800 #30 tablet 02/11/17 atorvastatin 80 mg tablet 80 mg PO QHS #30 tab 11/11/17 Apixaban [Eliquis] 5 mg PO BID 04/16/19 Carvedilol [Coreg (Beta Rodolfo)] 6.25 mg PO BID #60 tab 05/26/19 Levetiracetam [Keppra] 750 mg PO BID #60 tab 05/26/19 Propylthiouracil 50 mg PO BID #90 tab 05/26/19 Following Prescrptions Were Given to Patient: Levetiracetam [Keppra] 750 mg PO BID #60 tab Transmission Status: Received by [facility] #30 Primary Care Physician: Cheko Colbert MD [Primary Care Provider] - Please follow up with your Primary Care Physician in: 1 Week Please Follow Up With: Earnest Pate MD When: 1-2 weeks or as soon as possible Please Follow Up With: Med Montero MD When: 4-6 Weeks Disposition: Home Minutes spent on discharge:: 35 Patient Condition:: Stable Medical Necessity - Tobacco Use Smoking Status: Former smoker Meaningful Use Info Meaningful Use Diagnoses (Choose all that apply): None applicable <Maira Bass - Last Filed: 06/01/19 23:13> Discharge Date and Diagnosis - Secondary Discharge Diagnosis Chronic Problems Hyperlipidemia (Chronic) Iron deficiency anemia (Chronic) Graves disease (Chronic) Atrial fibrillation with RVR (Chronic) Cardiomyopathy (Chronic) HTN (hypertension) (Chronic) Multinodular goiter (nontoxic) (Chronic) Non-ST elevation KS (NSTEMI) (Chronic) Hospital Course and Treatment Summary of Care Provided: The patient is a 49 year old F who was admitted to the hospital with new seizur e. She has a PMH of CVA. Not on AED at admission. Urine tox screen positive for cannabinoids. MRI of the brain with no acute findings. EEG never for seizure activity. Started on Keppra at admission. Seen in consult by Dr. Rizvi. No AF on telemetry. Bradycardia on tele. TSH very low and the T4 is elevated. PTU was decreased and so was the Coreg. HR in the 50's at DC and asymptomatic. Was told 2 years ago to follow up with endocrinology and has been non-compliant with this. I agree with the PE as documented by Selene with no exceptions Impressions 1. new onset seizure disorder with Negative MRI of the brain and a negative EEG while on Keppra. Continue Keppra and follow up with neurology in 4-6 weeks. Must be seizure for 6 months before she is allowed to drive again 2. Graves disease - continue PTU at the lower dose and follow up with Dr. Pate 3. Bradycardia - Due to PTU and Coreg. Continue decreased doses of both drugs. 4. Daily illicit drug use with cannabis - smoking cessation encouraged 5. CAD 6. elevated Troponin - non-trending, NSTEMI ruled out Discussed with Selene and orders for discharge have been written. [] - Physical Exam Vital Signs Temp Pulse Resp BP Pulse Ox 98.1 F 77 18 128/80 H 96 05/26/19 09:25 05/26/19 09:25 05/26/19 09:25 05/26/19 09:25 05/26/19 09:25 Oxygen Delivery Method Room Air Weight: 212 lb 8.41 oz Body Mass Index (BMI) 34.1 Finger Stick Blood Glucose 72 Code Visit Inpatient E&M: 69819 Disch Hosp
--- NOTE | 2019-05-26 11:43 | PHA.DC.MC ---
Pharmacy Service has performed discharge medication reconciliation and counseling for this patient. The patient's discharge medication list was reviewed for discrepancies and discrepancies were resolved. The patient was counseled on the following discharge medications and changes in medications for homegoing were reviewed. 1. KEPPRA - DOSE YET TO BE DETERMINED BY NEURO AT TIME OF COUNSELING. MADE PT AWARE DOSE NOT YET FINALIZED. 2. PROPYLTHIOURACIL - DOSE CHANGE 3. COREG - DOSE CHANGE The Reason for Use, instructions for use, and potential side effects were reviewed for all new medications. The patient's questions regarding all of their medications were answered. The patient demonstrated some understanding but would benefit from further education and reinforcement. Home Medications Aspirin [Aspirin, Baby] 81 mg PO DAILY@0800 tab.chew 09/12/16 Ferrous Sulfate 325 mg PO DAILY@0800 #30 tablet 02/11/17 atorvastatin 80 mg tablet 80 mg PO QHS #30 tab 11/11/17 Apixaban [Eliquis] 5 mg PO BID 04/16/19 Carvedilol [Coreg (Beta Rodolfo)] 6.25 mg PO BID #60 tab 05/26/19 Propylthiouracil 50 mg PO BID #90 tab 05/26/19 KEPPRA
--- NOTE | 2019-05-26 12:34 | PCM.PN.NEU ---
Subjective: No issues overnight. No further documented witnessed seizures since admission. Patient plan for discharge today. - Physical Exam General: Alert HEENT: Normocephalic Neck: Supple Lungs: Normal air movement Cardiovascular: Normal S1, Normal S2 Abdomen: Bowel Sounds Present Extremities: No cyanosis Neurological: - - Conscious, alert, CN II through XII grossly intact, power 5/5 right upper and lower extremity, -5/5 Left UE/LE per patient she may have some residual mild left-sided weakness since her last stroke, no sensory loss, no cerebellar signs, gait deferred, reflexes + B/L B/S/T/K/A, no NR Psych/Mental Status: Normal Affect Vital Signs Temp Pulse Resp BP Pulse Ox 98.1 F 77 18 128/80 H 96 05/26/19 09:25 05/26/19 09:25 05/26/19 09:25 05/26/19 09:25 05/26/19 09:25 Oxygen Delivery Method Room Air Weight: 96.4 kg Body Mass Index (BMI) 34.1 Finger Stick Blood Glucose 72 Intake and Output for Last 24 Hours 05/24/19 05/25/19 05/26/19 23:59 23:59 23:59 Intake Total 2035.00 / 2035.00 621.75 / 621.75 585.0 / 585.0 Output Total 400 / 400 0 / 0 Balance 1635.00 / 1635.00 621.75 / 621.75 585.0 / 585.0 Medical Necessity - Tobacco Use Smoking Status: Former smoker Assessment/Plan All Active Problems Seizure (Acute) Noncompliance with medication regimen (Acute) Cardioembolic stroke (Acute) Left arm weakness (Acute) The patient is a 49 year old AAF with PMH HTN, HLD, history of stroke (right MCA stroke with right M1 occlusion and right [employer]), A. fib on Eliquis, cardiomyopathy, Graves' disease marijuana abuse admitted with seizure. History is obtained from patient, and medical records. Per documentation patient was with daughter yesterday evening (05/23/19) when patient had twitching movements and witnessed seizure activity by the daughter which lasted for few minutes, associated with tongue bite but no urinary incontinence, associated with postictal state, patient not aware of the event. At present patient did tell me that she possibly had a seizure about 2 years ago, per documentation daughter also believed that patient had may have had a seizure about 2 years ago but AED at present. Per patient she lives with her family, denies any frequent falls, does not drive at baseline. At present patient denies any headache, dizziness, focal motor symptoms, no sensory loss, denies any visual disturbances or speech disturbances. CT head did not show any acute changes, CTA head/neck showed chronic right M1 occlusion, there was no hemodynamically significant stenosis or occlusion. 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 Patient counseled to be compliant with medications ?UDS positive for marijuana. Patient counseled to stop smoking marijuana ?Labs reviewed ?UA?slightly cloudy, nitrite negative, LE negative, WBC 0-5, urine bacteria 0 ?Seizure prophylaxis discussed in detail with the patient, patient counseled not to drive for at least 6 months following the last seizure. Per patient she does not drive ?GI/DVT prophylaxis ?Fall precautions ?Further medical management per hospitalist team ?Follow-up with neurology as outpatient in 4 to 6 weeks ?Please call with questions if any ?Thank you for allowing us to participate in patient's care and management This note has been generated using [employer] dictation software. It may contain incorrect words, spellings and punctuation's that were not noted in the review of the note prior to signing.
--- NOTE | 2019-05-27 12:02 | CASEMGMT ---
JASVIR GIRON Discharge Follow-Up Phone Call. Lace: 12 Strata: 4 Discharge Date: 05-26-19 Adm Dx: Seizure Episode. Attempted discharge follow-up phone call. Phone rang multiple times and then got a busy signal. Checked that correct number was dialed and attempted again with same results. Unable to leave a message. Shyam TAMAYO RN CM
== END 2019-05-26 14:32 | disposition home or self-care (01) | DRG 57 ==
LOC: ED 20:49 → PCU 05-24 00:37
PROVIDERS: Internal Medicine; Physician Assistant; Admitting Provider Psychiatry & Neurology Neurology; Emergency Provider Emergency Medicine; Family Provider Family Medicine; PCP Family Medicine; Visit Provider Internal Medicine
DX: I69.398 Other sequelae of cerebral infarction (principal); I48.20 Chronic atrial fibrillation, unspecified; I50.22 Chronic systolic (congestive) heart failure; G40.802 Other epilepsy, not intractable, without status epilepticus; I25.10 Atherosclerotic heart disease of native coronary artery without angina pectoris; D50.9 Iron deficiency anemia, unspecified; I25.2 Old myocardial infarction; I11.0 Hypertensive heart disease with heart failure; E78.5 Hyperlipidemia, unspecified; E05.20 Thyrotoxicosis with toxic multinodular goiter without thyrotoxic crisis or storm; R00.1 Bradycardia, unspecified; F12.10 Cannabis abuse, uncomplicated; I25.5 Ischemic cardiomyopathy; Z87.891 Personal history of nicotine dependence; Z91.14 Patient's other noncompliance with medication regimen; Z79.01 Long term (current) use of anticoagulants
CPT/HCPCS: 36415; 70450; 70496; 70498; 70551; 71045; 80048; 80053; 80061; 80307; 80320; 81001; 82977; 83735; 84100; 84146; 84439; 84443; 84481; 85025; 93005; 93306; 95819; 97110; 97116; 97162; 97166; 97530; 97802; 99285; J7030; J7050; Q9957; Q9967; A4216; C8929; G0480; J2405

== ENCOUNTER 2019-07-20 21:40 | Emergency (ER) | payer MEDICARE, MEDICAID, SELFPAY ==
[2019-05-24 00:22] VITALS: BMI 34.1
[2019-07-20 21:42] VITALS: BP 131/84; PULSE 69; RESP 16; TEMP 36.8; O2SAT 98; BMI 33.5
--- NOTE | 2019-07-20 22:14 | CT_ITS ---
STUDY: CT BRAIN WITHOUT CONTRAST REASON FOR EXAM: Female, 49 years old. Seizure RADIATION DOSAGE (If Supplied By Facility): CTDIvol = ( 44.99 ) mGy, DLP = ( 762.36 ) mGycm TECHNIQUE: Transaxial CT imaging of the brain was performed without administration of intravenous contrast material. Individualized dose optimization techniques were used for this CT. COMPARISON: No relevant priors. FINDINGS: Normal soft tissue structures. Normal calvarium. There is mild cerebral atrophy with widening of the extra-axial spaces and ventricular dilatation. There are areas of decreased attenuation within the white matter tracts of the supratentorial brain, consistent with microvascular disease changes. Normal basal ganglia and thalami. Normal brainstem. Normal cerebellum. There is no intracranial hemorrhage. There are no findings of an acute ischemic infarction. Again noted is encephalomalacia within the right occipital lobe and right frontal temporal lobe. Paranasal sinus disease. Small amount of fluid right maxillary sinus correlate for acute sinusitis. CT/Brain/Head without Contrast IMPRESSION: Chronic changes with old areas of infarct similar to prior exam May 23, 2019. There is no acute territorial infarct or intracranial hemorrhage identified. If patient's symptomology persists or there is continuing clinical concern MRI or follow-up CT scan can be performed. Small amount of fluid right maxillary sinus not visualized on prior exam. Correlate for component of acute sinusitis. Electronically Signed: Collins Montenegro, at 23:24 EST Tel , Service support ,
--- NOTE | 2019-07-20 22:15 | ED.VIS.GEN ---
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 right earache. right toothache. Narrative: Patient is unable to speak, family states that is typical of her postictal periods. She has a history of seizure disorder. She has been out of her Keppra for 2 weeks. She takes no other antiepileptics and states she has been taking her other medications which include Eliquis, she is not sure why she is on that. She denies any falls or head injuries that she knows of. She indicates she has had a cold lately, and her right ear and a right tooth have been hurting her for 1-2 weeks. She denies a headache. She denies any chest or abdominal pain, nausea, vomiting. She states since being out of her Keppra for the past 2 weeks, this is the second breakthrough seizure that she has had. Her family witnessed this 1, and called 911 to have her brought to the ER for evaluation. They were not present during the initial evaluation/interview. Prior similar symptoms: Yes - Past Medical History (1) Seizure disorder Status: Chronic (2) Hyperlipidemia Status: Chronic (3) Noncompliance with medication regimen Status: Chronic (4) Iron deficiency anemia Status: Chronic (5) Graves disease Status: Chronic (6) Atrial fibrillation with RVR Status: Chronic (7) Cardiomyopathy Status: Chronic (8) HTN (hypertension) Status: Chronic (9) Cardioembolic stroke Status: Chronic (10) Multinodular goiter (nontoxic) Status: Chronic (11) Non-ST elevation OR (NSTEMI) Status: Chronic Past Medical History - Allergies and Home Meds Allergies/Adverse Reactions: Allergies No Known Allergies Allergy (Verified 04/16/19 10:59) Primary Care Physician: Cheko Colbert MD [Primary Care Provider] - Surgical History: - - denies surgery Lives: With Family Smoking Status: Former smoker - Family History Maternal Family History: Family History (Last Updated 06/17/19 @ 08:10 by Tessy Dykes) Sister Diabetes Grandmother CVA (cerebral vascular accident) Family History: Reports: No pertinent history - in 40's unknown reason Paternal Family History: Family History (Last Updated 06/17/19 @ 08:10 by Tessy Dykes) Sister Diabetes Grandmother CVA (cerebral vascular accident) Family History: Reports: No pertinent history Sibling Family History: Family History (Last Updated 06/17/19 @ 08:10 by Tessy Dykes) Sister Diabetes Grandmother CVA (cerebral vascular accident) Family History: Reports: - - sister with diabetes Review of Systems General: Reports: Malaise. Denies: Chills, Fever, Sweats Eyes: Denies: Visual changes - bilaterally, Diplopia ENT: Reports: Right ear pain, - - Right toothache. Denies: Rhinorrhea, Sore throat Cardiovascular: Denies: Chest pain, Palpitations Respiratory: Denies: Dyspnea, Cough, Dyspnea on exertion Gastrointestinal: Denies: Abdominal pain, Nausea, Vomiting, Diarrhea, Melena, Hematochezia Genitourinary: Denies: Dysuria, Hematuria, Frequency Musculoskeletal: Denies: Neck pain, Back pain, Swelling, Extremity Pain Skin: Denies: Rash, Wounds Neurological: Reports: - - Seizure, - - Trouble speaking now. Denies: Headache, Weakness, Numbness Physical Exam Vital Signs/Narrative: Vital Signs Temp Pulse Resp BP Pulse Ox 07/20/19 21:42 98.2 F 69 16 131/84 H 98 Inital Vital Signs reviewed: Yes General: Well nourished, Well developed, Obese, No Acute Distress - Keenly alert Head: Normocephalic, Atraumatic Eyes: Perrl, EOMI ENT: Moist mucous membranes, No rhinorrhea, TM's clear, - - No trismus. No dental tenderness objectively or dental abnormality seen.. Negative for: Sinus tenderness Neck: Supple, Nontender, No lymphadenopathy Cardiovascular: Regular rate, Regular rhythm, No murmurs, Normal S1, Normal S2. Negative for: Tachycardia Respiratory: No distress, CTA bilaterally, Chest nontender Abdomen: Soft, Nontender, Nondistended, Normal bowel sounds Back: Nontender, Normal Inspection. Negative for: Spinal tenderness Extremities: Nontender, No edema Skin: Normal color, No rash, No Trauma Neurological: Alert, Oriented x3, Cranial nerves II-XII grossly intact, Normal Strength, Normal Sensation, - - Patient indicates that she cannot speak but nods yes or no to all of my review of system questions. When asked to open her mouth for inspection of her throat, she verbalizes ahhh. Psychological: Normal affect, Normal Mood Diagnostic/Tx/Re-eval Clinical Impression(s) from Imaging Studies Brain CT 07/20/19 22:14 IMPRESSION: Chronic changes with old areas of infarct similar to prior exam May 23, 2019. There is no acute territorial infarct or intracranial hemorrhage identified. If patient's symptomology persists or there is continuing clinical concern MRI or follow-up CT scan can be performed. Small amount of fluid right maxillary sinus not visualized on prior exam. Correlate for component of acute sinusitis. Electronically Signed: Collins Moni, at 23:24 EST Tel , Service support , - Medical Decision Making CT shows no acute hemorrhage, the primary reason for the scan was to rule out hemorrhage. She fully recovered with observation here in the emergency department and was able to converse, talk normally. Her family is at the bedside and confirms that she is back to her baseline. She was given a Keppra load of 1000 mg IV. She has no idea what her dose is of Keppra. According to records she is on 750 mg twice daily we were able to discover. She was advised to take the medication as prescribed, we filled her prescription at our retail pharmacy at the hospital and provided the patient with pills prior to discharge. ED Disposition - Plan for ED Patient: Disposition: Home or Assisted Living Diagnosis: Breakthrough seizure, History of seizure disorder, Noncompliance with medication regimen Instructions: SEIZURE, Recurrent [Adult] Prescriptions: levETIRAcetam tablet [Keppra tablet] 750 mg PO BID #60 tab Prescription Printed Referrals: Cheko Colbert MD [Primary Care Provider] - Keep Theodora appointment
[2019-07-20] MEDS: levETIRAcetam IV 1,000 MG/100 ML BAG 400 MG IV (22:46)
[2019-07-20 22:51] LABS: Bedside Glucose 89 mg/dL (70-110)
--- NOTE | 2019-07-20 23:24 | ED.RN ---
PT NOW ABLE TO SPEAK CLEARLY.
[2019-07-20 23:41] VITALS: BP 138/91; PULSE 58; RESP 16; O2SAT 97
--- NOTE | 2019-07-20 23:42 | ED.RN ---
PT UNSURE OF MEDS & DOSES.
[2019-07-20] MEDS: Acetaminophen 500 MG Tablet 1000 MG PO (23:58)
== END 2019-07-21 00:30 | disposition home or self-care (01) ==
PROVIDERS: Emergency Provider Emergency Medicine; Family Provider Family Medicine; PCP Family Medicine
DX: G40.909 Epilepsy, unspecified, not intractable, without status epilepticus (principal); Z91.14 Patient's other noncompliance with medication regimen; K08.89 Other specified disorders of teeth and supporting structures; E66.9 Obesity, unspecified; E78.5 Hyperlipidemia, unspecified; E05.20 Thyrotoxicosis with toxic multinodular goiter without thyrotoxic crisis or storm; D50.9 Iron deficiency anemia, unspecified; I48.91 Unspecified atrial fibrillation; I42.9 Cardiomyopathy, unspecified; I10 Essential (primary) hypertension; I25.2 Old myocardial infarction; Z86.73 Personal history of transient ischemic attack (TIA), and cerebral infarction without residual deficits; Z79.82 Long term (current) use of aspirin; Z79.01 Long term (current) use of anticoagulants; Z79.899 Other long term (current) drug therapy; Z87.891 Personal history of nicotine dependence
CPT/HCPCS: 70450; 82962; 96365; 99285; J7050; A4216

== ENCOUNTER 2019-07-25 16:41 | Emergency (ER) | payer MEDICARE, SELFPAY ==
[2019-07-25 16:43] VITALS: BP 119/94; PULSE 77; RESP 16; TEMP 36.1; O2SAT 98; BMI 31.0
--- NOTE | 2019-07-25 17:31 | ED.VISSUMM ---
- ER Visit Summary Date of Service: 07/25/19 Chief Complaint: Vertigo History of Present Illness: The patient is a [address] Colbert. She reports that 2 days ago she began experiencing vertigo when she lays down and turns her head to the right. She denies any vertigo at any other times. She reports that she has had right ear pain for the past week. She describes as an aching pain is 9-10 at worst and 5-10 currently. She denies any change in her hearing. No ringing or roaring in her ears. States that she had a headache earlier, but she does not have a headache now. Denies any slurred speech or double vision. She denies any numbness, weakness, or other neurologic symptoms. Physical Examination: Vitals: Stable. Afebrile. General: Well-nourished and well-developed. Head: Normocephalic atraumatic. HEENT: Serous effusions bilaterally. Neck: Supple, no lymphadenopathy. No JVD. Nontender. Cardiovascular: Regular rate and rhythm. No murmurs. Respiratory: No respiratory distress. Clear to auscultation bilaterally. Abdominal: Soft, nontender, nondistended, normal bowel sounds. No guarding, rebound, or peritoneal signs. Back: Nontender. Extremities: Nontender, no edema. Skin: Normal color, no rash. Neurologic: Alert and oriented ?3. Cranial nerves II through XII are intact. Normal strength and sensation. No nystagmus. Psych: Normal affect. Emergency Department Course and Treatment: Patient was given Antivert. She is able to ambulate by the emergency department without any difficulty. Treatment Plan: Patient will be discharged with Antivert. Instructed to follow-up with her primary care physician in 1 to 2 days if not improving. Follow-up Dr. Jeferson Gtz in 1 week if not improving. Return to the emergency department for any worsening symptoms. Disposition: To home in improved and stable condition. Impression: 1. Vertigo, peripheral. 2. Serous otitis bilaterally. This note was generated with [employer] software. It may contain incorrect words, spelling, and punctuation that were not noted in review of the chart prior to signing ED Disposition - Plan for ED Patient: Disposition: Home or Assisted Living Instructions: Benign Positional Vertigo Prescriptions: Meclizine HCl [Antivert] 25 mg PO 4X/DAY PRN PRN #20 tab PRN Reason: Dizziness Prescription Printed Referrals: Cheko Colbert MD [Primary Care Provider] - 1-2 Days if not improving Jeferson Bocanegra MD [STAFF PHYSICIAN] - 1 Week if not improving
[2019-07-25] MEDS: Meclizine HCl 25 MG Tablet PO (17:38)
== END 2019-07-25 17:49 | disposition home or self-care (01) ==
LOC: ED 17:42
PROVIDERS: Emergency Provider Emergency Medicine; Family Provider Family Medicine; PCP Family Medicine
DX: H65.93 Unspecified nonsuppurative otitis media, bilateral (principal); R42 Dizziness and giddiness; I10 Essential (primary) hypertension; I48.91 Unspecified atrial fibrillation; G40.909 Epilepsy, unspecified, not intractable, without status epilepticus; Z86.73 Personal history of transient ischemic attack (TIA), and cerebral infarction without residual deficits; Z79.01 Long term (current) use of anticoagulants; Z79.82 Long term (current) use of aspirin; Z79.899 Other long term (current) drug therapy
CPT/HCPCS: 99284; A4216

== ENCOUNTER 2019-08-20 14:45 | Emergency (ER) | payer MEDICARE, SELFPAY ==
[2019-08-20 14:46] VITALS: BP 131/83; PULSE 73; RESP 18; TEMP 36.8; O2SAT 95; BMI 33.5
[2019-08-20] MEDS: Ondansetron ODT 4 MG Tablet 8 MG PO (15:20)
--- NOTE | 2019-08-20 15:20 | ED.DCSUM_ITS ---
- ER Visit Summary Date of Service: 08/20/19 Chief Complaint: Out of seizure meds History of Present Illness: The patient is a 49 F who states that she is out of her seizure medications and she feels like I am going to have a seizure. She has been out of her Keppra for 2 days. She takes 750 mg twice a day. She was seen here on July 20 and was given a 30-day supply because she was out of seizure meds at that time. She did not follow-up after her last ER visit. She is on Eliquis and she has not missed any doses of that. Physical Examination: Vital signs reviewed. HEENT exam unremarkable. Heart is regular rate and rhythm without murmurs. Lungs are clear to auscultation. Abdomen is soft and nontender. Extremities reveal no edema. Skin exam normal. Neurologic exam normal. Test Results: None performed Emergency Department Course and Treatment: The patient's physical exam was normal. She has not had a seizure. I see no indication for any work-up at this time. I will give her an oral dose of Keppra here. I will give her a prescription for Keppra. I encouraged her that she needs to follow-up with her PCP to get a refill of her Keppra. She felt nauseous while here in the department so I gave her Zofran ODT. She will need to call her doctor on Thursday. Treatment Plan: [] Disposition: Discharge Impression: Medication refill, seizure disorder, nausea This note was generated with [employer] dictation software. It may contain incorrect words, spelling, and punctuation that were not noted in review of the chart prior to signing ED Disposition - Plan for ED Patient: Referrals: Cheko Colbert MD [Primary Care Provider] -
--- NOTE | 2019-08-20 15:21 | DCINST.ED_ITS ---
ED Disposition - Plan for ED Patient: Disposition: Home or Assisted Living Instructions: SEIZURE, Recurrent [Adult] Prescriptions: levETIRAcetam tablet [Keppra tablet] 750 mg PO BID #60 tab Transmission Status: Pending to [facility] Referrals: Cheko Colbert MD [Primary Care Provider] -
[2019-08-20] MEDS: levETIRAcetam 1,000 MG Tablet 1000 MG PO (15:24)
== END 2019-08-20 15:27 | disposition home or self-care (01) ==
PROVIDERS: Emergency Provider Emergency Medicine; Family Provider Family Medicine; PCP Family Medicine
DX: Z76.0 Encounter for issue of repeat prescription (principal); G40.909 Epilepsy, unspecified, not intractable, without status epilepticus; R11.0 Nausea; Z79.01 Long term (current) use of anticoagulants; Z79.899 Other long term (current) drug therapy
CPT/HCPCS: 99285

== ENCOUNTER 2019-09-01 20:32 | Emergency (ER) | payer MEDICARE, SELFPAY ==
[2019-09-01 20:33] VITALS: BP 124/69; PULSE 102; RESP 16; TEMP 37.3; O2SAT 99; BMI 22.8
[2019-09-01] MEDS: Ketorolac 60 MG/2 ML Vial IM (22:09)
[2019-09-01] MEDS: Orphenadrine 60 MG/2 ML Ampul IM (22:10)
[2019-09-01 22:39] LABS: Color, Urine Red (Yellow); Glucose, Dipstick Normal (Normal); Ketone-Dipstick 5 mg/dl (Negative); Leukocyte Esterase-Dipstick 25 /ul (Negative); Nitrite-Dipstick Negative (Negative); Occult Blood-Urine 250 /ul (Negative); Protein-Dipstick 100 mg/dl (Negative); Specific Gravity, Urine 1.025 (1.002-1.030); Urine Bilirubin Dipstick Negative (Negative); Urine Clarity Cloudy (Clear); Urine Urobilinogen Normal (Normal)
[2019-09-01 23:05] LABS: Squamous Epithelial Cells - UA 0-5 SEEN /hpf (5-10)
[2019-09-01 23:07] LABS: Hyaline Cast 0-5 SEEN /lpf (0-5); Mucous, Urine RARE /hpf (<or=2+)
[2019-09-01 23:08] LABS: Red Blood Cells-Urine 50-100 SEEN /hpf (0-5); White Blood Cells 0-5 SEEN /hpf (0-5)
[2019-09-01 23:09] LABS: Bacteria RARE /hpf (None Seen)
--- NOTE | 2019-09-02 00:25 | ED.DEP ---
ED Disposition - Plan for ED Patient: Instructions: BACK AND NECK PAIN, General, Common Myths About Pain Medications Prescriptions: Naproxen [Naprosyn] 500 mg PO BID PRN #20 tablet Referrals: Cheko Colbert MD [Primary Care Provider] -
--- NOTE | 2019-09-02 00:28 | ED.VISSUMM ---
- ER Visit Summary Date of Service: 09/02/19 Chief Complaint: Back pain History of Present Illness: The patient is a 49 F presenting with back pain. She states this has been ongoing for the past 2 days. She has right-sided lower back pain. She has a history of chronic back pain. She did not take any medication at home. She denies recent trauma. Denies bowel or bladder incontinence. Denies numbness or weakness. Denies fever. Denies other complaints. Physical Examination: Vitals are stable. Patient is afebrile. Alert no acute distress. HEENT exam is unremarkable. Neck is supple. Lungs are clear and equal bilaterally. Heart is regular rate and rhythm. Abdomen is soft nontender nondistended. Back: Right paraspinal lumbar muscle tenderness, no midline tenderness Extremities are unremarkable. Skin is warm and dry. No focal neurologic deficit. Normal strength and sensation Remainder of exam is unremarkable. Emergency Department Course and Treatment: Patient was given Toradol IM. Urinalysis shows 0 white blood cells, 50-100 red blood cells. She is currently on her period. On reevaluation, she is resting comfortably. She is given prescription for naproxen. Advised to follow-up with her primary care physician. Advised return to ED for worsening complaints. Disposition: Discharge home Impression: Acute on chronic back pain This note was generated with [employer] dictation software. It may contain incorrect words, spelling, and punctuation that were not noted in review of the chart prior to signing ED Disposition - Plan for ED Patient: Instructions: Common Myths About Pain Medications, BACK AND NECK PAIN, General Prescriptions: Naproxen [Naprosyn] 500 mg PO BID PRN #20 tab Prescription Printed Referrals: Cheko Colbert MD [Primary Care Provider] -
[2019-09-02 00:40] VITALS: PULSE 98; RESP 20; O2SAT 95
== END 2019-09-02 00:42 | disposition home or self-care (01) ==
PROVIDERS: Emergency Provider Emergency Medicine; PCP Family Medicine
DX: M54.5 Low back pain (principal); G89.29 Other chronic pain; R30.0 Dysuria
CPT/HCPCS: 81001; 96372; 99284

== ENCOUNTER 2019-09-20 00:13 | Emergency (ER) | payer MEDICARE, MEDICAID, SELFPAY ==
[2019-09-20 00:15] VITALS: BP 98/66; PULSE 80; RESP 16; TEMP 36.6; O2SAT 98; BMI 34.0
--- NOTE | 2019-09-20 01:00 | RAD_ITS ---
STUDY: X-RAY - LEFT ANKLE REASON FOR EXAM: Female, 49 years old. NKI -- C/O MEDIAL LT ANKLE PAIN FOR MORE THAN A MONTH TECHNIQUE: 3 view(s) of the ankle. COMPARISON: None. FINDINGS: Normal visualized distal tibia and fibula. Normal medial and lateral malleoli. Normal tibiotalar articulation and ankle mortise. Plantar calcaneal spur, otherwise normal visualized talus and calcaneus. The visualized subtalar, talonavicular, calcaneocuboid and tarsal articulations are normal. There is no demonstrated fracture. Mild soft tissue swelling along the anterior ankle. RAD/Ankle min 3 Views IMPRESSION: Mild soft tissue swelling as described above, otherwise normal x-ray examination of the ankle. Electronically Signed: Gely Wagner MD at 1:34 EST , Service support ,
--- NOTE | 2019-09-20 01:01 | ED.VIS.GEN ---
History of Present Illness Chief Complaint: Lower Extremity Injury Narrative: Patient is a 49-year-old female who presents with left ankle pain. Patient reported to me that this just began today although triage note stated she had complained of pain for 2 weeks. She does not recall any trauma or injury. No numbness tingling or weakness. Past Medical History - Allergies and Home Meds Allergies/Adverse Reactions: Allergies No Known Allergies Allergy (Verified 09/20/19 00:17) Primary Care Physician: Cheko Colbert MD [Primary Care Provider] - Past Medical History: - - Atrial fibrillation Surgical History: - - denies surgery Smoking Status: Never smoker - Family History Maternal Family History: Family History (Last Updated 06/17/19 @ 08:10 by Tessy Dykes) Sister Diabetes Grandmother CVA (cerebral vascular accident) Family History: Reports: No pertinent history - in 40's unknown reason Paternal Family History: Family History (Last Updated 06/17/19 @ 08:10 by Tessy Dykes) Sister Diabetes Grandmother CVA (cerebral vascular accident) Family History: Reports: No pertinent history Sibling Family History: Family History (Last Updated 06/17/19 @ 08:10 by Tessy Dykes) Sister Diabetes Grandmother CVA (cerebral vascular accident) Family History: Reports: - - sister with diabetes Review of Systems All systems negative except as indicated General: Denies: Fever Eyes: Denies: Visual changes - bilaterally ENT: Denies: Bilateral ear pain Cardiovascular: Denies: Chest pain Respiratory: Denies: Dyspnea Gastrointestinal: Denies: Abdominal pain, Nausea, Vomiting Musculoskeletal: Reports: Extremity Pain - Left ankle pain. Denies: Myalgias Skin: Denies: Rash Neurological: Denies: Headache Physical Exam Vital Signs/Narrative: Vital Signs Temp Pulse Resp BP Pulse Ox 09/20/19 00:15 97.8 F 80 16 98/66 98 Inital Vital Signs reviewed: Yes General: Well nourished Head: Normocephalic Eyes: EOMI ENT: Moist mucous membranes Cardiovascular: Regular rate Respiratory: No distress Extremities: - - Patient has focal tenderness of the medial left ankle, no edema, no calf tenderness, no erythema or soft tissue swelling, easily palpable dorsalis pedis pulse with brisk capillary refill and normal sensation to light touch Skin: Normal color Neurological: Alert Psychological: Normal affect Diagnostic/Tx/Re-eval Impressions Ankle X-Ray 09/20/19 01:00 IMPRESSION: Mild soft tissue swelling as described above, otherwise normal x-ray examination of the ankle. Electronically Signed: Gely Wagner MD at 1:34 EST , Service support , 09/20/19 01:00 Ankle min 3 Views [RAD] Stat - Medical Decision Making X-ray as above shows no fracture or dislocation. Patient was given an Enoch wrap. She was advised on supportive care including rest ice and elevation. She was advised to follow-up with her primary care physician and was discharged home. ED Disposition - Plan for ED Patient: Disposition: Home or Assisted Living Diagnosis: Ankle pain, left Instructions: Sprain, Ankle, with X-Ray Referrals: Cheko Colbert MD [Primary Care Provider] -
== END 2019-09-20 01:58 | disposition home or self-care (01) ==
PROVIDERS: Emergency Provider Emergency Medicine; PCP Family Medicine; Referring Provider Family Medicine
DX: M25.572 Pain in left ankle and joints of left foot (principal); I48.91 Unspecified atrial fibrillation; Z79.01 Long term (current) use of anticoagulants; Z79.82 Long term (current) use of aspirin; Z79.899 Other long term (current) drug therapy
CPT/HCPCS: 73610; 99283

== ENCOUNTER 2020-04-23 16:15 | Emergency (ER) | payer MEDICARE, MEDICAID, SELFPAY ==
[2020-04-23 16:21] VITALS: BP 150/100; PULSE 65; RESP 18; TEMP 36.1; O2SAT 97; BMI 38.5
--- NOTE | 2020-04-23 16:32 | RAD_ITS ---
STUDY: X-RAY CHEST REASON FOR EXAM: Female, 50 years old. Seizure. Weakness. Hypertension. TECHNIQUE: Single AP portable view of the chest. COMPARISON: 05/23/2019. FINDINGS: The lungs are clear and expanded. There is no demonstrated pleural abnormality. There is mild cardiac enlargement. Normal mediastinum and pamella. Normal visualized pulmonary arteries. Normal visualized aortic arch and descending thoracic aorta. Normal visualized thoracic spine. Normal visualized ribs, clavicles, and shoulders. There is no demonstrated abnormality of the visualized soft tissue structures of the upper abdomen. RAD/Chest 1 View (Portable) IMPRESSION: Mild cardiomegaly without acute pulmonary disease or interval change. Electronically Signed: Bob Nunez DO at 17:55 EDT Tel [phone], Service support ,
--- NOTE | 2020-04-23 16:33 | ED.DCSUM_ITS ---
History of Present Illness Chief Complaint: Seizure Informant: Patient Onset: Today Current Severity: Mild Maximum Severity: Mild Narrative: Patient presents after seizure at home. She states that she ran out of her seiz ure medications 1 week ago. She normally takes Keppra 750 mg twice daily. She states her seizures are pretty well controlled on Keppra, but is soon as she runs out of her medications she tends to have recurrent seizures until she can get a refill. She also complains of a mild cough but just recently started. She has not measured a fever but she states that she will occasionally feel hot. - Past Medical History (1) Seizure Status: Chronic (2) Cardioembolic stroke Status: Chronic (3) Cardiomyopathy Status: Chronic (4) Chronic atrial fibrillation Status: Chronic (5) Graves disease Status: Chronic (6) HTN (hypertension) Status: Chronic (7) Hyperlipidemia Status: Chronic (8) Multinodular goiter (nontoxic) Status: Chronic (9) Non-ST elevation CO (NSTEMI) Status: Chronic Past Medical History - Allergies and Home Meds Allergies/Adverse Reactions: Allergies No Known Allergies Allergy (Verified 04/23/20 16:20) Primary Care Physician: Cheko Colbert MD [Primary Care Provider] - Prior records reviewed: Yes Surgical History: - - denies surgery Smoking Status: Never smoker - Family History Maternal Family History: Family History (Last Updated 06/17/19 @ 08:10 by Tessy Dykes) Sister Diabetes Grandmother CVA (cerebral vascular accident) Family History: Reports: No pertinent history - in 40's unknown reason Paternal Family History: Family History (Last Updated 06/17/19 @ 08:10 by Tessy Dykes) Sister Diabetes Grandmother CVA (cerebral vascular accident) Family History: Reports: No pertinent history Sibling Family History: Family History (Last Updated 06/17/19 @ 08:10 by Tessy Dykes) Sister Diabetes Grandmother CVA (cerebral vascular accident) Family History: Reports: - - sister with diabetes Review of Systems General: Denies: Fever - No measured fever but occasionally feels hot Eyes: Denies: Visual changes - bilaterally ENT: Denies: Bilateral ear pain Cardiovascular: Denies: Chest pain, Palpitations Respiratory: Reports: Cough. Denies: Dyspnea, Sputum Gastrointestinal: Denies: Abdominal pain, Vomiting, Diarrhea Musculoskeletal: Denies: Swelling, Extremity Pain Skin: Denies: Rash Neurological: Denies: Headache Allergy: Denies: Uticaria Physical Exam Vital Signs/Narrative: Vital Signs Temp Pulse Resp BP Pulse Ox 04/23/20 16:21 96.9 F L 65 18 150/100 H 97 Inital Vital Signs reviewed: Yes General: Well nourished, Well developed, - - Alert and answers questions, but slow to respond consistent with postictal state. Head: Normocephalic, Atraumatic Eyes: Perrl, EOMI ENT: Moist mucous membranes, - - No injury to tongue. Neck: Supple Cardiovascular: Irregular Respiratory: No distress, CTA bilaterally Abdomen: Soft, Nontender Back: Nontender Extremities: Nontender Skin: Normal color, No rash Neurological: Alert, Oriented x3. Negative for: Normal Strength - Mild chronic left-sided weakness. Psychological: Normal affect Diagnostic/Tx/Re-eval Impressions Chest X-Ray 04/23/20 16:32 IMPRESSION: Mild cardiomegaly without acute pulmonary disease or interval change. Electronically Signed: Bob Nunez DO at 17:55 EDT Tel [phone], Service support , 04/23/20 16:32 Chest 1 View (Portable) [RAD] Stat Laboratory Results 04/23/20 17:05 Sodium 139 Potassium 4.6 Chloride 110 H Carbon Dioxide 25.0 Anion Gap 4 L BUN 9 Creatinine 0.66 Estim Creat Clear Calc 81.55 Est GFR (MDRD) Af Amer 123 Est GFR (MDRD) Non-Af 102 BUN/Creatinine Ratio 13.7 Glucose 92 Calcium 9.0 - Medical Decision Making Patient was given 0.5 mg of Ativan IV and 1 g Keppra load IV. On repeat evaluation she is resting comfortably. Vital signs have been stable. New prescription for her Keppra will be sent to [email or web address] for her. Chest x-ray is unremarkable. ED Disposition - Plan for ED Patient: Disposition: Home or Assisted Living Diagnosis: Seizure Instructions: ED Seizure Recurrent Adult Prescriptions: Levetiracetam [Keppra] 750 mg PO BID #60 tab Transmission Status: Pending to [facility] #30 Referrals: Cheko Colbert MD [Primary Care Provider] - 1-2 Weeks
--- NOTE | 2020-04-23 16:35 | ED.RN ---
pt cell phone [phone]
[2020-04-23] MEDS: levETIRAcetam IV 1,000 MG/100 ML BAG 400 MG IV (17:13)
[2020-04-23] MEDS: LORazepam 2 MG/ML Syringe 0.5 MG IV (17:13)
[2020-04-23 17:47] LABS: Anion Gap 4 (5-15); BUN 9 mg/dL (7-18); BUN/Creat Ratio 13.7 RATIO (10-20); Chloride 110 mmol/L (98-107); Creatinine, Serum 0.66 mg/dL (0.55-1.02); EST Glomerular Filtration Rate 102 mL/min (>60); Est Glom Filt Rate - Afr Amer 123 mL/min (>60); Estimated Creatinine Clearance 81.55 ml/min; Glucose 92 mg/dL (74-106); Potassium 4.6 mmol/L (3.5-5.1); Sodium Level 139 mmol/L (136-145)
[2020-04-23 18:14] VITALS: BP 107/51; PULSE 61; RESP 22; O2SAT 94
== END 2020-04-23 18:32 | disposition home or self-care (01) ==
PROVIDERS: Emergency Provider Emergency Medicine; PCP Family Medicine
DX: G40.909 Epilepsy, unspecified, not intractable, without status epilepticus (principal); R05 Cough; I10 Essential (primary) hypertension; I25.2 Old myocardial infarction; I42.9 Cardiomyopathy, unspecified; I48.20 Chronic atrial fibrillation, unspecified; E78.5 Hyperlipidemia, unspecified; E05.00 Thyrotoxicosis with diffuse goiter without thyrotoxic crisis or storm; Z86.73 Personal history of transient ischemic attack (TIA), and cerebral infarction without residual deficits; Z79.82 Long term (current) use of aspirin; Z79.899 Other long term (current) drug therapy
CPT/HCPCS: 71045; 80048; 96365; 96375; 99285; A4216

== ENCOUNTER 2020-05-12 12:35 | Emergency (ER) | payer MEDICARE, MEDICAID, SELFPAY ==
[2020-05-12 12:36] VITALS: BP 139/46; PULSE 75; RESP 18; TEMP 36.6; O2SAT 100; BMI 32.8
--- NOTE | 2020-05-12 12:56 | EKG12_ITS ---
Test Reason : PAIN Blood Pressure : / mmHG Vent. Rate : 081 BPM Atrial Rate : 357 BPM P-R Int : 000 ms QRS Dur : 088 ms QT Int : 402 ms P-R-T Axes : 000 073 019 degrees QTc Int : 466 ms Atrial fibrillation Low voltage QRS Cannot rule out Anterior infarct , age undetermined Abnormal ECG Confirmed by ONEAL VICTOR, TONIA ([id number]), copy editor STAS HANKINS ([id number]) on 05/17/2020 1:48:46 PM Referred By: DIOGO Confirmed By:MORIAH NO MD
--- NOTE | 2020-05-12 13:00 | RAD_ITS ---
STUDY: X-RAY - LEFT SHOULDER REASON FOR EXAM: Female, 50 years old. PAIN X1 WEEK, NKI TECHNIQUE: 4 view(s) of the shoulder. COMPARISON: None. FINDINGS: Normal glenohumeral articulation. Normal acromioclavicular joint. Normal acromion. Normal humeral head and visualized proximal humerus. The soft tissue structures are unremarkable. Normal visualized pulmonary apex. RAD/Shoulder min 2 Views IMPRESSION: Normal x-ray examination of the shoulder. Electronically Signed: Samm Garcia MD ([place]) at 14:04 EDT , Service support ,
--- NOTE | 2020-05-12 13:02 | ED.VISSUMM ---
- ER Visit Summary Date of Service: 05/12/20 Chief Complaint: [Left shoulder pain] History of Present Illness: The patient is a 50 F [presents the emergency department left shoulder pain that started 1 week ago. Patient denies any trauma. Patient states that the pain is keeping her up at night. Patient denies fever or recent illness. She denies any significant chest discomfort although she states the pain seems to be kind of in her armpit. She denies shortness of breath. She denies nausea or vomiting. Patient has history of A. fib and is currently on Eliquis. Patient has seizure disorder history as well as hypertension high cholesterol. Patient is right-hand dominant.] Physical Examination: [HEENT-PERRLA, EOMI. Cranial nerves II through XII grossly intact. TMs clear. Mucous membranes moist. No adenopathy. Cardiovascular-regular rate and rhythm without murmur or ectopy Lungs-clear to auscultation, chest wall stable without crepitus or subcu emphysema Abdomen-normoactive bowel sounds, soft, nontender, no rebound or rigidity, no peritoneal signs. Extremities-intact ?4, normal range of motion, normal pulses, atraumatic. Left shoulder-patient has diffuse tenderness palpation into the left axilla although no masses palpated. No abscesses noted. She has good range of motion at the glenohumeral joint. Neurovascular intact distally.] Test Results: [EKG obtained on arrival showed atrial fibrillation with a ventricular rate of 81 bpm with low voltage noted otherwise nothing acute. X-rays of the left shoulder obtained were normal.] Emergency Department Course and Treatment: [Results were discussed with patient. On further discussion with patient she believes that she may have lifted something awkwardly or wrongly which caused her pain.] Treatment Plan: [Patient will be given a sling. Patient will be given a prescription for few [place] for pain. Patient advised to follow-up with her primary care physician within next 5 to 7 days.] Disposition: [Discharged home in stable condition] Impression: [Left shoulder sprain-possible internal derangement] This note was generated with [employer] software. It may contain incorrect words, spelling, and punctuation that were not noted in review of the chart prior to signing ED Disposition - Plan for ED Patient: Referrals: Cheko Colbert MD [Primary Care Provider] -
[2020-05-12 13:52] VITALS: RESP 15
--- NOTE | 2020-05-12 14:13 | DCINST.ED_ITS ---
ED Disposition - Plan for ED Patient: Instructions: ED Shoulder Sprain Prescriptions: Hydrocodone Bitart/Apap 5-325 [[place] 5MG-325MG] 1 tab PO Q4H PRN PRN 2 Days #10 tab PRN Reason: Pain Prescription Printed Referrals: Cheko Colbert MD [Primary Care Provider] - 5-7 Days
[2020-05-12 14:56] VITALS: BP 142/79; PULSE 71; RESP 16; O2SAT 98
--- NOTE | 2020-05-12 14:57 | ED.RN ---
THIS NURSE REVIEWED D/C INSTRUCTIONS WITH PT. PT VERBALIZED UNDERSTANDING OF INSTRUCTIONS. PT REQUESTING ASSISTANCE HELP TO PAY FOR [facility] AND REQUESTING A FREE RIDE HOME. PT INFORMED THAT WE DO NOT HAVE RESOURCES AT THIS TIME TO HELP HER GET HOME. THIS NURSE CONTACTED [facility] TO DETERMINE THE [place] OF THE [facility]. PT INFORMED OF THE SAME. PT DENIES FURTHER NEEDS OR QUESTIONS AT [facility]. PT AMBULATES FROM ROOM ON OWN WITHOUT ASSISTANCE FROM STAFF
== END 2020-05-12 14:59 | disposition home or self-care (01) ==
PROVIDERS: Emergency Provider Emergency Medicine; PCP Family Medicine
DX: S43.402A Unspecified sprain of left shoulder joint, initial encounter (principal); X58.XXXA Exposure to other specified factors, initial encounter; Y93.9 Activity, unspecified; Y92.9 Unspecified place or not applicable; I10 Essential (primary) hypertension; I48.91 Unspecified atrial fibrillation; E78.00 Pure hypercholesterolemia, unspecified; G40.909 Epilepsy, unspecified, not intractable, without status epilepticus; Z79.01 Long term (current) use of anticoagulants; Z79.899 Other long term (current) drug therapy
CPT/HCPCS: 73030; 93005; 99283

== ENCOUNTER 2020-05-25 16:16 | Emergency (ER) | payer MEDICARE, MEDICAID, SELFPAY ==
[2020-05-25 16:16] VITALS: BP 141/85; PULSE 80; RESP 16; TEMP 36.1; O2SAT 100; BMI 32.3
--- NOTE | 2020-05-25 16:31 | ED.VISSUMM ---
- ER Visit Summary Date of Service: 05/25/20 Chief Complaint: Medication refill History of Present Illness: The patient is a 50 F who presents for medication refill. Patient states she takes Keppra 750 mg twice daily for her seizures. Patient states she ran out of this today. Patient denies any seizures today. Patient denies any chest pain or shortness of breath. Patient denies any nausea or vomiting. Patient denies any headaches. Patient states her primary care physician will not refill her Keppra for her. Patient states she was told to come to the emergency department for refill of her Keppra by her primary care physician. Physical Examination: Vital signs are stable. Patient is afebrile. Patient is in no acute distress. Oral mucosa is pink and moist. Neck is supple. Trachea is midline. There is no JVD noted. Heart was regular rate and rhythm. Lungs are clear and equal bilaterally. Abdomen is soft. Bowel sounds are normal. There is no tenderness. There is no rebound or guarding noted. Skin is warm dry. Cranial nerves II through XII are intact. There are no focal motor or sensory deficits noted. Extremities are intact. There is no calf tenderness or edema. Emergency Department Course and Treatment: Patient was given a prescription for Keppra. Patient was instructed to follow-up with her primary care physician in 5 to 7 days. Patient was advised that if her primary care physician will not refill her Keppra she should be referred to a neurologist who can prescribe her Keppra. Patient understood and was agreeable with the plan. All questions were answered. Disposition: Discharge home Impression: Medication refill This note was generated with [email or web address] dictation software. It may contain incorrect words, spelling, and punctuation that were not noted in review of the chart prior to signing ED Disposition - Plan for ED Patient: Disposition: Home or Assisted Living Diagnosis: Medication refill, Seizure disorder Instructions: Med Refill Prescriptions: levETIRAcetam tablet [Keppra tablet] 750 mg PO BID #60 tab Transmission Status: Pending to [facility] #30 Referrals: Cheko Colbert MD [Primary Care Provider] - 5-7 Days
== END 2020-05-25 17:00 | disposition home or self-care (01) ==
PROVIDERS: Emergency Provider Emergency Medicine; PCP Family Medicine
DX: Z76.0 Encounter for issue of repeat prescription (principal); J34.89 Other specified disorders of nose and nasal sinuses; G40.909 Epilepsy, unspecified, not intractable, without status epilepticus; E66.9 Obesity, unspecified; I10 Essential (primary) hypertension; I25.2 Old myocardial infarction; E78.00 Pure hypercholesterolemia, unspecified; I48.91 Unspecified atrial fibrillation; E05.00 Thyrotoxicosis with diffuse goiter without thyrotoxic crisis or storm; Z86.73 Personal history of transient ischemic attack (TIA), and cerebral infarction without residual deficits; Z79.01 Long term (current) use of anticoagulants; Z79.899 Other long term (current) drug therapy
CPT/HCPCS: 99282

== ENCOUNTER 2020-05-26 03:37 | Emergency (ER) | payer MEDICARE, MEDICAID, SELFPAY ==
[2020-05-25 16:16] VITALS: BMI 32.3
[2020-05-26 03:37] VITALS: BP 140/87; PULSE 74; RESP 15; TEMP 36.2; O2SAT 99; BMI 31.1
[2020-05-26 03:42] VITALS: BP 126/82; PULSE 74; RESP 15; O2SAT 97
--- NOTE | 2020-05-26 03:43 | ED.DCSUM_ITS ---
- ER Visit Summary Date of Service: 05/26/20 Chief Complaint: Ear pain History of Present Illness: The patient is a 50 F who presents with left ear pain. Started 1 hour prior to arrival. She is pointing to the left ear is where her pain is located. She denies any sore throat, cough, fever, ear drainage. She took a pain pill which did not help. She has had no nasal congestion. She does have a history of otitis media in the past. Patient was seen in the emergency department yesterday for medication refill of her Keppra. Physical Examination: Vital signs reviewed. HEENT exam reveals no mastoid tenderness bilaterally. There is no swelling. There is no bulging of the left pinna. Her TMs are clear bilaterally. The external canal is normal. She does have pain with movement of the left tragus. There is no rhinorrhea. Her throat is nonerythematous. Neck is supple without tenderness. There is no lymphadenopathy. Heart is regular rate and rhythm. Lungs are clear. Abdomen is soft. Neurologic exam is normal but the patient is slightly drowsy. Test Results: None performed Emergency Department Course and Treatment: At this point I do not see any acute causes for her pain. She has no evidence of otitis media, otitis externa, mastoiditis, cervical lymphadenopathy, neck trauma, ear trauma, pharyngitis. I will give the patient a dose of naproxen here. She will need to follow-up with her doctor if her pain persist. Treatment Plan: [] Disposition: Discharge Impression: Left ear pain This note was generated with [employer] dictation software. It may contain incorrect words, spelling, and punctuation that were not noted in review of the chart prior to signing ED Disposition - Plan for ED Patient: Disposition: Home or Assisted Living Instructions: ED Neck Pain Referrals: Cheko Colbert MD [Primary Care Provider] -
[2020-05-26] MEDS: Naproxen 500 MG Tablet PO (03:44)
== END 2020-05-26 04:25 | disposition home or self-care (01) ==
LOC: ED 03:57
PROVIDERS: Emergency Provider Emergency Medicine; PCP Family Medicine
DX: H92.02 Otalgia, left ear (principal); E78.00 Pure hypercholesterolemia, unspecified; G40.909 Epilepsy, unspecified, not intractable, without status epilepticus; Z79.899 Other long term (current) drug therapy
CPT/HCPCS: 99283

== ENCOUNTER 2020-07-31 17:44 | Emergency (ER) | payer MEDICARE, MEDICAID, SELFPAY ==
[2020-07-31 17:45] VITALS: BP 135/100; PULSE 78; RESP 17; TEMP 36.9; O2SAT 99; BMI 33.4
--- NOTE | 2020-07-31 18:02 | ED.VIS.GEN ---
History of Present Illness Chief Complaint: Dental Informant: Patient Narrative: 50-year-old female presenting with pain in her TMJ. She states started today. She took Tylenol 1 hour prior to arrival. This has not helped her yet. She denies temporal pain or visual complaints. She denies dental pain. She has no trouble breathing or swallowing. She is not had fever, chills, nausea, vomiting. - Past Medical History (1) Atrial fibrillation with RVR Status: Chronic (2) Cardioembolic stroke Status: Chronic (3) Cardiomyopathy Status: Chronic (4) Graves disease Status: Chronic (5) HTN (hypertension) Status: Chronic (6) Hyperlipidemia Status: Chronic Past Medical History - Allergies and Home Meds Allergies/Adverse Reactions: Allergies No Known Allergies Allergy (Verified 07/31/20 17:49) Primary Care Physician: Cheko Colbert MD [Primary Care Provider] - Prior records reviewed: Yes Past Medical History: - - Reviewed in problem list Surgical History: noncontributory, - - denies surgery Lives: Alone Smoking Status: Former smoker Alcohol: None Drugs: None - Family History Maternal Family History: Family History (Last Updated 06/17/19 @ 08:10 by Tessy Dykes) Sister Diabetes Grandmother CVA (cerebral vascular accident) Family History: Reports: No pertinent history - in 40's unknown reason Paternal Family History: Family History (Last Updated 06/17/19 @ 08:10 by Tessy Dykes) Sister Diabetes Grandmother CVA (cerebral vascular accident) Family History: Reports: No pertinent history Sibling Family History: Family History (Last Updated 06/17/19 @ 08:10 by Tessy Dykes) Sister Diabetes Grandmother CVA (cerebral vascular accident) Family History: Reports: - - sister with diabetes Review of Systems General: Denies: Chills, Fever, Sweats Eyes: Denies: Visual changes - bilaterally, Diplopia ENT: Reports: - - Left jaw pain. Denies: Rhinorrhea, Sore throat Cardiovascular: Denies: Chest pain, Palpitations Respiratory: Denies: Dyspnea, Cough, Dyspnea on exertion Gastrointestinal: Denies: Abdominal pain, Nausea, Vomiting, Diarrhea, Melena, Hematochezia Genitourinary: Denies: Dysuria, Hematuria, Frequency Musculoskeletal: Denies: Back pain, Extremity Pain Skin: Denies: Rash, Wounds Neurological: Denies: Headache, Weakness, Numbness Psych: Denies: Depression, Anxiety Physical Exam Vital Signs/Narrative: Vital Signs Temp Pulse Resp BP Pulse Ox 07/31/20 17:45 98.4 F 78 17 135/100 H 99 Inital Vital Signs reviewed: Yes General: Well nourished, No Acute Distress Head: Normocephalic, Atraumatic Eyes: EOMI ENT: Moist mucous membranes, No rhinorrhea, - - Tenderness to palpation over the left mandible adjacent to TMJ. Pain is also elicited with opening and closing. Do not palpate a click or pop when she opens. Neck: Supple, Nontender Cardiovascular: Regular rate, Regular rhythm Respiratory: No distress, CTA bilaterally Abdomen: Soft, Nontender Skin: Normal color, No rash Neurological: Alert, Oriented x3 Psychological: Normal affect, Normal Mood Diagnostic/Tx/Re-eval - Medical Decision Making Patient's exam is most consistent with TMJ syndrome. Patient was given a shot of Toradol in the ED. She was given a prescription for ibuprofen. Patient is counseled to follow-up with her PCP on outpatient basis if this continues to be a problem. Impression: 1. TMJ syndrome ED Disposition - Plan for ED Patient: Disposition: Home or Assisted Living Instructions: ED TMJ Syndrome Prescriptions: Ibuprofen 200 mg PO TID PRN PRN #30 cap PRN Reason: pain Transmission Status: Received by [facility] #30 Referrals: Cheko Colbert MD [Primary Care Provider] -
[2020-07-31] MEDS: Ketorolac 15 MG/ML Vial IM (18:21)
[2020-07-31 18:24] VITALS: BP 144/78; O2SAT 98
== END 2020-07-31 18:42 | disposition home or self-care (01) ==
PROVIDERS: Emergency Provider Student in an Organized Health Care Education/Training Program; PCP Family Medicine
DX: M26.602 Left temporomandibular joint disorder, unspecified (principal); I10 Essential (primary) hypertension; I42.9 Cardiomyopathy, unspecified; E78.5 Hyperlipidemia, unspecified; I48.91 Unspecified atrial fibrillation; E05.00 Thyrotoxicosis with diffuse goiter without thyrotoxic crisis or storm; Z86.73 Personal history of transient ischemic attack (TIA), and cerebral infarction without residual deficits; Z79.01 Long term (current) use of anticoagulants; Z79.899 Other long term (current) drug therapy; Z87.891 Personal history of nicotine dependence
CPT/HCPCS: 96372; 99284

== ENCOUNTER 2020-08-21 19:48 | Emergency (ER) | payer MEDICARE, MEDICAID, SELFPAY ==
[2020-08-21 19:50] VITALS: BP 124/86; PULSE 82; RESP 16; TEMP 36.9; O2SAT 97; BMI 33.7
--- NOTE | 2020-08-21 20:34 | ED.DCSUM_ITS ---
- ER Visit Summary Date of Service: 08/21/20 Chief Complaint: General weakness History of Present Illness: The patient is a 50 F who presents with general weakness and nausea that became worse today. Patient states she has been having menstrual bleeding since June. Patient states she feels weak with any activity. Patient admits to subjective fevers. Patient also admits to some rhinorrhea. Patient states she does feel short of breath at times. Patient admits to nausea but denies any vomiting. Patient denies any abdominal pain. Patient admits to some hematuria but denies any dysuria. Physical Examination: Vital signs are stable. Patient is afebrile. Patient is in no acute distress. Oral mucosa is pink and moist. Neck is supple. Trachea is midline. There is no JVD. Heart was regular rate and rhythm. Lungs are clear and equal bilaterally. Abdomen is soft. Bowel sounds are normal. There is some mild lower abdominal tenderness. There is no rebound or guarding noted. Cranial nerves II through XII are intact. There are no focal motor or sensory deficits noted. Remedies are intact. There is no calf tenderness or edema. Test Results: Orthostatic vital signs were obtained and were within normal limits. CBC and comprehensive metabolic profile within normal limits. PT with INR and PTT were essentially within normal limits. Urinalysis does not show any evidence of urinary tract infection. Serum hCG was negative. Emergency Department Course and Treatment: Patient was given IV fluids. Patient was instructed to drink plenty of fluids. Patient was instructed to follow-up with her primary care physician in 5 to 7 days. Patient understood and was agreeable with the plan. All questions were answered. Disposition: Discharge home Impression: 1. Abdominal pain 2. General weakness This note was generated with [employer] dictation software. It may contain incorrect words, spelling, and punctuation that were not noted in review of the chart prior to signing ED Disposition - Plan for ED Patient: Disposition: Home or Assisted Living Diagnosis: General weakness, Abdominal pain Instructions: ED Abdominal Pain Unkn Cause Fem, ED Weakness (Uncertain Cause) Referrals: Cheko Colbert MD [Primary Care Provider] - 3-5 Days
[2020-08-21 20:43] VITALS: BP 120/87; BP 121/80; BP 134/86; PULSE 63; PULSE 66; PULSE 69
[2020-08-21 21:12] LABS: Bacteria 0 SEEN /hpf (None Seen); Mucous, Urine 0 SEEN /hpf (<or=2+)
[2020-08-21 21:13] LABS: Absolute Lymphocyte Count 1.82 X10^3/uL (0.83-4.51); Absolute Neutrophil Count 2.6 X10^3/uL (2.0-7.7); Basophil# 0.04 X10^3/uL; Basophil% 0.8 % (0-1); Eosinophil# 0.13 X10^3/uL; Eosinophils% 2.5 % (0-5); Hematocrit 38.4 % (37-47); Lymphocyte # 1.82 X10^3/ul (4.0); Lymphocyte % 35.5 % (19-41); Mean Corp Hgb Conc 31.3 g/dL (32-36); Mean Corpuscular Hgb 26.3 pg (27.0-32.0); Mean Platelet Vol. 10.3 fl (6.2-12.0); Monocyte# 0.53 X10^3/uL; Monocyte% 10.3 % (0-10); NRBC Flagged by Analyzer 0 % (0-5); Neutrophil % 50.7 % (47-70); Platelet Count 310 K/mm3 (150-450); RBC Distribution Width CV 14.2 % (11.6-14.6); RBC Distribution Width SD 43.2 fl (35.1-43.9); Red Blood Count 4.57 M/mm3 (4.2-5.4); White Blood Count 5.1 K/mm3 (4.4-11.0)
[2020-08-21 21:15] LABS: Color, Urine Yellow (Yellow); Glucose, Dipstick Normal (Normal); Ketone-Dipstick Negative (Negative); Leukocyte Esterase-Dipstick 25 /ul (Negative); Nitrite-Dipstick Negative (Negative); Occult Blood-Urine 250 /ul (Negative); Protein-Dipstick Negative (Negative); Urine Bilirubin Dipstick Negative (Negative); Urine Clarity Sl. Cloudy (Clear); Urine Urobilinogen Normal (Normal)
[2020-08-21 21:21] LABS: Red Blood Cells-Urine 10-25 SEEN /hpf (0-5); Squamous Epithelial Cells - UA 0-5 SEEN /hpf (5-10); White Blood Cells 0-5 SEEN /hpf (0-5)
[2020-08-21 21:22] LABS: Amorphous Sediment 1+ URATE
[2020-08-21 21:23] LABS: International Normalized Ratio 1.4; Prothrombin Time (Protime)PT. 16.3 SECONDS (11.7-14.9)
[2020-08-21 21:24] LABS: Partial Thromboplast Time 36.4 Seconds (24.1-36.2)
[2020-08-21 21:25] LABS: Internal QC Validated? YES +Cl - CLEAR BKGD; Pregnancy, Serum, hCG Quali. NEGATIVE Negative
[2020-08-21 21:31] LABS: AST(SGOT) 12 U/L (15-37); Alanine Aminotransfer ALT/SGPT 17 U/L (13-56); Albumin, Serum 3.8 g/dL (3.2-5.0); Alkaline Phosphatase 131 U/L (45-117); Anion Gap 4 (5-15); BUN 7 mg/dL (7-18); BUN/Creat Ratio 10.1 RATIO (10-20); Calcium,Total 8.5 mg/dL (8.5-10.1); Chloride 108 mmol/L (98-107); Creatinine, Serum 0.69 mg/dL (0.55-1.02); EST Glomerular Filtration Rate 95 mL/min (>60); Est Glom Filt Rate - Afr Amer 115 mL/min (>60); Estimated Creatinine Clearance 92.33 ml/min; Globulin 3.7 g/dL (2.2-4.2); Glucose 90 mg/dL (74-106); Potassium 3.7 mmol/L (3.5-5.1); Protein, Total 7.5 g/dL (6.4-8.2); Sodium Level 142 mmol/L (136-145)
[2020-08-21 22:43] VITALS: BP 121/93; PULSE 73; RESP 16
== END 2020-08-21 22:44 | disposition home or self-care (01) ==
PROVIDERS: Emergency Provider Emergency Medicine; PCP Family Medicine
DX: R53.1 Weakness (principal); R10.9 Unspecified abdominal pain; E66.9 Obesity, unspecified; J34.89 Other specified disorders of nose and nasal sinuses; R06.02 Shortness of breath; R11.0 Nausea; R31.9 Hematuria, unspecified; R19.7 Diarrhea, unspecified; I25.2 Old myocardial infarction; Z86.73 Personal history of transient ischemic attack (TIA), and cerebral infarction without residual deficits; Z79.01 Long term (current) use of anticoagulants; Z79.899 Other long term (current) drug therapy
CPT/HCPCS: 80053; 81001; 84703; 85025; 85610; 85730; 99285; A4216

== ENCOUNTER 2020-10-28 18:33 | Emergency (ER) | payer MEDICARE, MEDICAID, SELFPAY ==
[2020-10-28 18:33] VITALS: BP 144/97; PULSE 69; RESP 18; TEMP 36.6; O2SAT 100; BMI 34.0
--- NOTE | 2020-10-28 18:54 | EKG12_ITS ---
Test Reason : DIZZINESS Blood Pressure : / mmHG Vent. Rate : 078 BPM Atrial Rate : 394 BPM P-R Int : 000 ms QRS Dur : 084 ms QT Int : 420 ms P-R-T Axes : 000 102 054 degrees QTc Int : 478 ms Atrial fibrillation with premature ventricular or aberrantly conducted complexes Rightward axis Low voltage QRS Abnormal ECG Confirmed by ALEXUS VICTOR, KYLIE ([id number]), legal editor ADIN JONHSON ([id number]) on 10/31/2020 10:02:19 AM Referred By: SHARON Confirmed By:KYLIE VAUGHAN MD
[2020-10-28 18:55] LABS: Bedside Glucose 86 mg/dL (70-110)
--- NOTE | 2020-10-28 18:57 | ED.VISSUMM ---
- ER Visit Summary Date of Service: 10/28/20 Chief Complaint: [Dizziness ] History of Present Illness: The patient is a 50 F [presents to the emergency department with sudden onset of dizziness this afternoon. Patient states that she went to lay down and got acutely vertiginous. Dizziness is worse with head position and especially turning to the right. She has had no nausea or vomiting. She denies any falls or head injuries. She has had episodes like this in the past and used to take a medicine for her dizziness but ran out last year. Denies any falls or head injuries. She denies any chest pain or shortness of breath. Patient states that she has had a cough for several days that is nonproductive. She denies any COVID-19 exposures. She denies any fevers. Patient has history of prior stroke, hypertension, high cholesterol, seizure disorder, A. fib, and hypothyroidism.] Physical Examination: [HEENT-PERRLA, EOMI. Cranial nerves II through XII grossly intact. TMs clear. Mucous membranes moist. No adenopathy. Cardiovascular-regular rate and rhythm without murmur or ectopy Lungs-clear to auscultation, chest wall stable without crepitus or subcu emphysema Abdomen-normoactive bowel sounds, soft, nontender, no rebound or rigidity, no peritoneal signs. Neuro [id number]-[id number] and heel ponce testing within normal limits, negative Romberg, negative pronator drift, fundi benign. Hallpike maneuver performed did elicit nystagmus with head turn to the right which reproduced her symptoms. Extremities-intact ?4, normal range of motion, normal pulses, atraumatic] Test Results: [EKG obtained on arrival shows atrial fibrillation with a ventricular rate of 78 bpm with no acute ST segment changes noted. CBC with differential showing a 4.0, hemoglobin 13, hematocrit 41.5, platelet 258. Chemistries unremarkable. Orthostatic vital signs were negative. Troponin was less than 0.015. COVID-19 test rapid was negative.] Emergency Department Course and Treatment: [IV line established on arrival. Patient placed on a cardiac rehab nurse. Patient received Antivert 25 mg p.o. Patient's symptoms mostly resolved and she felt tremendously improved. She was able to ambulate in the department without difficulty.] Treatment Plan: [Patient to follow-up with her primary care physician in 3 to 5 days. She will be given as prescription for Antivert.] Disposition: [Discharged home in stable condition] Impression: [Benign positional vertigo] This note was generated with [employer] dictation software. It may contain incorrect words, spelling, and punctuation that were not noted in review of the chart prior to signing ED Disposition - Plan for ED Patient: Referrals: Cheko Colbert MD [Primary Care Provider] -
[2020-10-28] MEDS: Meclizine HCl 25 MG Tablet PO (19:06)
[2020-10-28 19:12] VITALS: BP 147/122; BP 152/97; BP 158/97; PULSE 75; PULSE 76; PULSE 86
[2020-10-28] MEDS: 0.9% Normal Saline 1,000 ML 150 ML IV (19:32)
[2020-10-28 19:35] LABS: Absolute Lymphocyte Count 1.77 X10^3/uL (0.83-4.51); Absolute Neutrophil Count 1.6 X10^3/uL (2.0-7.7); Basophil# 0.05 X10^3/uL; Basophil% 1.2 % (0-1); Eosinophil# 0.13 X10^3/uL; Eosinophils% 3.2 % (0-5); Hematocrit 41.5 % (37-47); Hemoglobin 13.1 g/dL (12.0-15.0); Lymphocyte # 1.77 X10^3/ul (4.0); Mean Corp Hgb Conc 31.6 g/dL (32-36); Mean Corpuscular Hgb 26.5 pg (27.0-32.0); Mean Platelet Vol. 10.5 fl (6.2-12.0); Monocyte# 0.47 X10^3/uL; Monocyte% 11.7 % (0-10); NRBC Flagged by Analyzer 0 % (0-5); Neutrophil # 1.59 X10^3/uL (2.7-7.7); Neutrophil % 39.7 % (47-70); Platelet Count 258 K/mm3 (150-450); RBC Distribution Width CV 13.5 % (11.6-14.6); Red Blood Count 4.94 M/mm3 (4.2-5.4)
[2020-10-28 19:54] LABS: Anion Gap 6 (5-15); BUN 10 mg/dL (7-18); BUN/Creat Ratio 13.1 RATIO (10-20); Chloride 108 mmol/L (98-107); Creatinine, Serum 0.76 mg/dL (0.55-1.02); EST Glomerular Filtration Rate 85 mL/min (>60); Est Glom Filt Rate - Afr Amer 103 mL/min (>60); Estimated Creatinine Clearance 83.82 ml/min; Glucose 104 mg/dL (74-106); Potassium 4.4 mmol/L (3.5-5.1); Sodium Level 140 mmol/L (136-145)
--- NOTE | 2020-10-28 20:22 | ED.DEP ---
ED Disposition - Plan for ED Patient: Instructions: ED BPV Vertigo Prescriptions: Meclizine HCl [Antivert] 25 mg PO 4X/DAY PRN PRN #20 tab PRN Reason: Dizziness Prescription Printed Referrals: Cheko Colbert MD [Primary Care Provider] - 3-5 Days
[2020-10-28 20:26] VITALS: BP 123/78; PULSE 73; RESP 16; O2SAT 99
== END 2020-10-28 20:35 | disposition home or self-care (01) ==
LOC: ED 19:32
PROVIDERS: Emergency Provider Emergency Medicine; PCP Family Medicine
DX: H81.10 Benign paroxysmal vertigo, unspecified ear (principal); I10 Essential (primary) hypertension; I48.91 Unspecified atrial fibrillation; G40.909 Epilepsy, unspecified, not intractable, without status epilepticus; E78.00 Pure hypercholesterolemia, unspecified; E03.9 Hypothyroidism, unspecified; Z86.73 Personal history of transient ischemic attack (TIA), and cerebral infarction without residual deficits; Z79.01 Long term (current) use of anticoagulants; Z79.899 Other long term (current) drug therapy
CPT/HCPCS: 80048; 82962; 84484; 85025; 87426; 93005; 96360; 99285; J7030; A4216

== ENCOUNTER 2020-11-23 14:44 | Emergency (ER) | payer MEDICARE, MEDICAID, SELFPAY ==
[2020-11-01 10:27] VITALS: BMI 34.7
[2020-11-23 14:45] VITALS: BP 132/76; PULSE 85; RESP 18; TEMP 36.3; O2SAT 99; BMI 34.4
--- NOTE | 2020-11-23 15:20 | RAD_ITS ---
STUDY: X-RAY CHEST REASON FOR EXAM: Female, 50 years old. Cough TECHNIQUE: PA and lateral views of the chest. COMPARISON: 04/23/2020 FINDINGS: The lungs are clear and expanded. There is no demonstrated pleural abnormality. Normal size heart. Normal mediastinum and pamella. Normal visualized pulmonary arteries. Normal visualized aortic arch and descending thoracic aorta. Normal visualized thoracic spine. Normal visualized ribs, clavicles, and shoulders. There is no demonstrated abnormality of the visualized soft tissue structures of the upper abdomen. RAD/Chest PA and Lateral IMPRESSION: Normal x-ray examination of the chest. Electronically Signed: Dexter Mtz MD at 16:15 EDT Tel , Service support ,
[2020-11-23 15:22] VITALS: BP 114/81
--- NOTE | 2020-11-23 16:34 | ED.VIS.URI ---
History of Present Illness Chief Complaint: General Illness Narrative: Patient presenting secondary to generalized illness. Patient states that over the course of about the last 2 days she has developed generalized malaise, cough, sore throat. She reports that last 24 hours she lost her voice and has had one episode of nonbloody nonbilious emesis. She denies any objective fevers. No diarrhea. No sick contacts. She denies any personal history of immunosuppression. She denies that there is any sort of shortness of breath associated with this. No difficulty with swallowing or tolerating her secretions. Review of systems otherwise negative. Past Medical History - Allergies and Home Meds Allergies/Adverse Reactions: Allergies No Known Allergies Allergy (Verified 11/23/20 15:22) Primary Care Physician: Cheko Colbert MD [Primary Care Provider] - Prior records reviewed: Yes Past Medical History: - - A. fib, hypertension, hyperlipidemia, prior history of stroke with left-sided weakness Surgical History: noncontributory, - - denies surgery Smoking Status: Current every day smoker - Family History Maternal Family History: Family History (Last Reviewed 11/01/20 @ 10:50 by Katharine Merlos) Sister Diabetes Grandmother CVA (cerebral vascular accident) Family History: Reports: No pertinent history - in 40's unknown reason Paternal Family History: Family History (Last Reviewed 11/01/20 @ 10:50 by Katharine Merlos) Sister Diabetes Grandmother CVA (cerebral vascular accident) Family History: Reports: No pertinent history Sibling Family History: Family History (Last Reviewed 11/01/20 @ 10:50 by Katharine Merlos) Sister Diabetes Grandmother CVA (cerebral vascular accident) Family History: Reports: - - sister with diabetes Review of Systems General: Reports: Malaise Eyes: Denies: Visual changes - bilaterally, Diplopia ENT: Reports: Sore throat, - - Loss of voice Cardiovascular: Denies: Chest pain, Palpitations Respiratory: Reports: Cough Gastrointestinal: Reports: Nausea, Vomiting Genitourinary: Denies: Dysuria, Hematuria, Frequency Musculoskeletal: Denies: Back pain, Extremity Pain Skin: Denies: Rash, Wounds Neurological: Denies: Headache, Weakness, Numbness Physical Exam Vital Signs/Narrative: Vital Signs Temp Pulse Resp BP Pulse Ox 11/23/20 15:22 114/81 H 11/23/20 14:45 97.4 F L 85 18 132/76 H 99 Inital Vital Signs reviewed: Yes General: Well nourished, Well developed Head: Normocephalic, Atraumatic Eyes: Perrl, EOMI Ears: Normal external canal, TM's clear Nose: Normal Inspection, No Rhinorrhea Mouth/Throat: Normal Inspection, No Posterior Erythema, - - Patient has loss of voice but no evidence of swallowing difficulty or stridor Neck: Supple, Nontender Cardiovascular: Regular rate, No murmurs, Irregular, - - 2+ radial pulses bilaterally symmetric Respiratory: No distress, CTA bilaterally, Chest nontender Abdomen: Soft, Nontender, Nondistended, Normal bowel sounds Back: Nontender, Normal Inspection Extremities: Nontender, No edema Skin: Normal color, No rash Neurological: Alert, Oriented x3, Cranial nerves II-XII grossly intact, Normal Strength, Normal Sensation Psychological: Normal affect Diagnostic/Tx/Re-eval Clinical Impression(s) from Imaging Studies Chest X-Ray 11/23/20 15:20 IMPRESSION: Normal x-ray examination of the chest. Electronically Signed: Dexter Mtz MD at 16:15 EDT Tel , Service support , - Medical Decision Making Patient presented secondary to voice hoarseness. Chest x-ray PA and lateral by my personal review as well as radiology is negative for acute process. Coronavirus test was sent and is negative, rapid strep was sent and was also found to be negative. Patient is swallowing and breathing normally, she potentially has an element of some laryngitis. She was given a dose of Naprosyn in the emergency department. She was recommended use of a humidifier, and other conservative management measures such as Chloraseptic spray. Patient was discharged in stable condition. ED Disposition - Plan for ED Patient: Disposition: Home or Assisted Living Diagnosis: Laryngitis Instructions: ED Laryngitis Prescriptions: Phenol [Chloraseptic] 1 spray MM TID #1 bottle Transmission Status: Pending to [id number] Referrals: Cheko Colbert MD [Primary Care Provider] - 1 Week if not improving
[2020-11-23] MEDS: Naproxen 500 MG Tablet PO (16:47)
[2020-11-23 16:48] VITALS: BP 116/83; PULSE 79; RESP 18; O2SAT 99
== END 2020-11-23 16:49 | disposition home or self-care (01) ==
PROVIDERS: Emergency Provider Emergency Medicine; PCP Family Medicine
DX: J04.0 Acute laryngitis (principal); I10 Essential (primary) hypertension; E78.5 Hyperlipidemia, unspecified; I48.91 Unspecified atrial fibrillation; I69.354 Hemiplegia and hemiparesis following cerebral infarction affecting left non-dominant side; F17.200 Nicotine dependence, unspecified, uncomplicated; Z79.01 Long term (current) use of anticoagulants; Z79.899 Other long term (current) drug therapy
CPT/HCPCS: 71046; 87426; 87880; 99284; A4216

== ENCOUNTER 2021-02-11 15:41 | Emergency (ER) | payer MEDICARE, MEDICAID, SELFPAY ==
[2021-02-11 15:45] VITALS: BP 117/71; PULSE 59; RESP 19; TEMP 36.2; O2SAT 98; BMI 35.6
--- NOTE | 2021-02-11 15:50 | ED.RN ---
diffiicult to hear pt, she speaks softly
--- NOTE | 2021-02-11 16:12 | EKG12_ITS ---
Test Reason : WEAKNESS Blood Pressure : / mmHG Vent. Rate : 060 BPM Atrial Rate : 277 BPM P-R Int : 000 ms QRS Dur : 082 ms QT Int : 452 ms P-R-T Axes : 000 099 040 degrees QTc Int : 452 ms Atrial fibrillation Rightward axis Pulmonary disease pattern Abnormal ECG Low Voltage Confirmed by ALEXUS VICTOR, KYLIE ([id number]), video editor ADIN JOHNSON ([id number]) on 02/13/2021 10:33:28 AM Referred By: MARIANA/JAI Confirmed By:KYLIE VAUGHAN MD
--- NOTE | 2021-02-11 16:13 | CT_ITS ---
STUDY: CT ABDOMEN AND PELVIS WITH CONTRAST REASON FOR EXAM: Female, 51 years old. Abdominal pain -- IV PO Contrast RADIATION DOSAGE (If Supplied By Facility): CTDIvol = ( 21.92 ) mGy, DLP = ( 1233.41 ) mGycm TECHNIQUE: Transaxial images were obtained from the dome of the diaphragm to the symphysis pubis without oral contrast. IV 100mL Isovue-300 was administered. Sagittal and coronal images were reconstructed. Individualized dose optimization techniques were used for this CT. COMPARISON: None. FINDINGS: Trace right pleural effusion. Mild cardiac enlargement. The liver is unremarkable. The gallbladder is unremarkable. Spleen is normal. Pancreas is unremarkable. The adrenal glands are normal. 1.7 cm right renal cyst. The kidneys are otherwise unremarkable. No stones or hydronephrosis. The aorta is normal in caliber. There is no free fluid, free air or organized collection. No bowel obstruction or inflammatory change. Normal appendix. Urinary bladder is unremarkable. Heterogeneously enhancing uterine masses measuring up to 3.6 cm. Normal abdominal wall. Normal osseous structures. CT/Abdomen/Pelvis WITH Contrast IMPRESSION: 1. Small right pleural effusion. 2. Mild cardiac enlargement. 3. Uterine fibroids. 4. Right renal cyst. Electronically Signed: Larissa Mcdaniels MD at 19:25 EDT Tel , Service support ,
--- NOTE | 2021-02-11 16:14 | EDS_ITS ---
HPI History of Present Illness Chief Complaint: Weakness Informant: patient Onset/Context/Timing Onset: Weeks (1) Context: Gradual Onset Timing: Continuous Quality: Cramping Location: Left abdomen Worsened by: Nothing Relieved by: Nothing Narrative Narrative: Patient presents with left-sided abdominal pain and headache that has been constant for the past week. Patient describes her pain as cramping. Patient states the pain is worse over the left lower quadrant. Patient states nothing makes it worse and nothing makes it better. Patient denies any fevers or chills. Patient admits to some constipation. Patient denies any melena or hematochezia. Patient admits to nausea but denies any vomiting. Patient denies any dysuria or hematuria. Patient does admit to some mild shortness of breath. Patient states she also feels weak all over. Patient states the pain sometimes radiates into her back. [facility] Medical History Chronic a-fib History of stroke with residual effects History of traumatic head injury Hyperlipidemia, mixed Hyperthyroidism Iron deficiency anemia Left-sided weakness Marijuana smoker Memory deficits Stroke due to embolism Home Medications ferrous sulfate 325 mg PO DAILY@0800 #30 tab 02/11/17 [Rx Last Taken 05/23/19] atorvastatin 80 mg tablet 80 mg PO QHS #30 tab 11/11/17 [Rx Last Taken 05/22/19] apixaban 5 mg PO BID 04/16/19 [History Last Taken 05/23/19] carvedilol 12.5 mg PO BID 08/20/19 [History Last Taken Unknown] meclizine 25 mg PO 4X/DAY PRN PRN #20 tab 10/28/20 [Rx Last Taken Unknown] acetaminophen 500 mg tablet 500 mg PO Q6H PRN tab 11/01/20 [History Last Taken Unknown] propylthiouracil 50 mg tablet 50 mg PO DAILY tab 11/01/20 [History Last Taken Unknown] phenol 1 spray MM TID #1 bottle 11/23/20 [Rx Last Taken Unknown] levetiracetam 750 mg tablet 750 mg PO BID #60 tab 01/30/21 [Rx Last Taken Unknown] Allergy/AdvReac Type Severity Reaction Status Date / Time No Known Allergies Allergy Verified 02/11/21 15:45 Family History Sister Diabetes Grandmother CVA (cerebral vascular accident) no surgical history Social History Smoking Status: Former smoker Tobacco: How many years used: 10 Electronic Cigarette Use: not used second hand exposure: No alcohol intake: former substance use type: marijuana ROS ROS ED Constitutional Constitutional ED: Denies chills or fever(s) Eyes Eyes: Denies blurry vision or change in vision ENT ENT ED: Reports rhinorrhea; Denies sore throat Cardiovascular Cardiovascular: Denies chest pain or palpitations Respiratory/Chest Respiratory/Chest: Reports dyspnea; Denies cough Gastrointestinal Gastrointestinal: Reports abdominal pain, constipation and nausea; Denies diarrhea or vomiting Genitourinary Genitourinary ED: Denies dysuria or hematuria Musculoskeletal Musculoskeletal: Reports back pain; Denies neck pain Integumentary Denies abscess or rash Neurologic Neurologic: Reports headache(s) and weakness Allergic/Immunologic Allergic/Immunologic ED: Denies mouth swelling or urticaria EXAM Physical Exam Const Vital Signs: 02/11/21 15:45 02/11/21 15:50 02/11/21 16:44 Temperature 97.2 F L Temperature Source Temporal Pulse Rate 59 L Respiratory Rate 19 H Respiratory Effort Normal Non-Labored Respiratory Pattern Normal Blood Pressure 117/71 126/88 H Blood Pressure Mean 86 100 Pulse Ox 98 Oxygen Delivery Method Room Air 02/11/21 19:12 Temperature Temperature Source Pulse Rate 63 Respiratory Rate 19 H Respiratory Effort Respiratory Pattern Blood Pressure 128/82 H Blood Pressure Mean 97 Pulse Ox 100 Oxygen Delivery Method Room Air Positive well nourished and well developed General Appearance ED: well developed HEENT Reports moist mucous membranes Neck supple and no JVD Resp normal respiratory effort and clear to auscultation bilaterally Cardio regular rate and no murmurs Rhythm: abnormal rhythm irregularly irregular GI normal to inspection, nondistended, normoactive bowel sounds Palpation: soft and tender LLQ and LUQ; Negative for guarding or rebound tenderness present Extremity normal to inspection General Extremety ED: Negative for edema General Extremity: Negative for edema Neuro oriented x3, CN's II-XII intact bilaterally and no sensory deficits noted Sensorium / Orientation: alert Motor Exam: strength 5/5 throughout Psych mental status grossly normal Skin no rashes or lesions noted MDM MDM MDM Narrative Medical decision making narrative: EKG was obtained. On my interpretation, it showed atrial fibrillation with a rate of 60. QRS interval and QTc intervals were normal. [place] was normal. There are no acute ST or T wave changes. Portable 1 view chest x-ray was obtained. On my interpretation, lung gutierrez are clear. There is normal cardiac silhouette. Bony thorax is normal. There is no acute process noted. Radiologist also interpreted the x-ray and agrees. CBC was within normal limits. Comprehensive metabolic profile was normal. Urinalysis does not show any evidence of urinary tract infection. CT scan of the abdomen and pelvis was obtained. There is no acute intra-abdominal process noted. This was interpreted by the radiologist and reviewed by myself. Patient was advised of her findings. Patient was instructed to follow-up with her primary care physician in 3 to 5 days. Patient was instructed to return if worse in any way. Patient understood and was agreeable with the plan. All questions were answered. Lab Data Attestation: I reviewed the patient's lab results. Labs: Laboratory Results - last 24 hr 02/11/21 02/11/21 02/11/21 16:20 16:45 16:45 WBC 3.7 L RBC 5.35 Hgb 13.9 Hct 44.8 MCV 83.7 MCH 26.0 L MCHC 31.0 L RDW Std Deviation 45.4 H RDW Coeff of Suzette 15.0 H Plt Count 294 MPV 10.3 Immature Gran % (Auto) 0.300 Neut % (Auto) 42.0 L Lymph % (Auto) 42.0 H Smyth % (Auto) 12.0 H Eos % (Auto) 3.2 Baso % (Auto) 0.5 Absolute Neuts (auto) 1.6 L Absolute Lymphs (auto) 1.57 Nucleated RBC % 0 Sodium 139 Potassium 5.1 Chloride 108 H Carbon Dioxide 25.0 Anion Gap 6 BUN 12 Creatinine 0.82 Estim Creat Clear Calc 76.84 Est GFR (MDRD) Af Amer 95 Est GFR (MDRD) Non-Af 78 BUN/Creatinine Ratio 14.6 Glucose 92 Calcium 8.8 Total Bilirubin 0.70 AST 43 H ALT 31 Alkaline Phosphatase 112 Total Protein 8.1 Albumin 3.8 Globulin 4.3 H Albumin/Globulin Ratio 0.9 Lipase 56 L Urine Color Yellow Urine Clarity Clear Urine pH 7.0 Ur Specific [place] 1.010 Urine Protein Negative Urine Glucose (UA) Normal Urine Ketones Negative Urine Occult Blood Negative Urine Nitrite Negative Urine Bilirubin Negative Urine Urobilinogen 4 H Ur Leukocyte Esterase Negative Urine RBC 0 SEEN Urine WBC 0 SEEN Ur Squamous Epith Cells 0-5 SEEN Urine Bacteria RARE Urine Mucus 0 SEEN Radiography Chest X-Ray - ED: 1 View, Read by ED Physician, Read by Radiologist, No Acute Disease and Cardiomegaly Diagnostic Testing: Radiology Impression Abdomen/Pelvis CT 02/11/21 16:13 IMPRESSION: 1. Small right pleural effusion. 2. Mild cardiac enlargement. 3. Uterine fibroids. 4. Right renal cyst. Electronically Signed: Larissa Mcdaniels MD at 19:25 EDT Tel , Service support , Chest X-Ray 02/11/21 16:54 IMPRESSION: Mild cardiac enlargement. No acute findings. Electronically Signed: Larissa Mcdaniels MD at 17:25 EDT Tel , Service support , EKG Initial EKG: Attestation: I personally reviewed and interpreted this EKG as follows: Interpretation: No Acute Injury Pattern and Atrial Fibrillation (60) Prior EKG tracings: available for review Prior: Unchanged (10/28/2020) Discharge Plan Triage Chief Complaint: Weakness ED Provider: Yimi Santa Dx/Rx/DC Orders Clinical Impression: Abdominal pain in female patient Instructions: ED Abdominal Pain Unkn Cause Fem Prescriptions: No Action acetaminophen [Tylenol Extra Strength] 500 mg tablet 500 mg PO Q6H PRNRF: 0 propylthiouracil 50 mg tablet 50 mg PO DAILY RF: 0 ferrous sulfate 325 MG tablet 325 mg PO DAILY@0800 Qty: 30 RF: 0 apixaban 5 MG tablet 5 mg PO BID RF: 0 carvedilol 12.5 MG tablet 12.5 mg PO BID RF: 0 meclizine 25 MG tablet 25 mg PO 4X/DAY PRN PRN (Reason: Dizziness) Qty: 20 RF: 0 phenol 20 ML aerosol,spray 1 spray MM TID Qty: 1 RF: 0 atorvastatin 80 mg tablet 80 mg PO QHS Qty: 30 RF: 11 levetiracetam 750 mg tablet 750 mg PO BID Qty: 60 RF: 1 Primary Care Provider: Cheko Colbert Referrals: Cheko Colbert MD [Primary Care Provider] - 3-5 Days Disposition Disposition: Home, Self Care
[2021-02-11 16:31] LABS: Mucous, Urine 0 SEEN /hpf (<or=2+); Red Blood Cells-Urine 0 SEEN /hpf (0-5); White Blood Cells 0 SEEN /hpf (0-5)
[2021-02-11 16:44] VITALS: BP 126/88
[2021-02-11] MEDS: 0.9% Normal Saline 1,000 ML 1000 ML IV (16:44)
[2021-02-11] MEDS: Ondansetron 4 MG/2 ML Vial IV (16:44)
[2021-02-11 16:52] LABS: Absolute Lymphocyte Count 1.57 X10^3/uL (0.83-4.51); Absolute Neutrophil Count 1.6 X10^3/uL (2.0-7.7); Basophil# 0.02 X10^3/uL; Basophil% 0.5 % (0-1); Eosinophil# 0.12 X10^3/uL; Eosinophils% 3.2 % (0-5); Hematocrit 44.8 % (37-47); Hemoglobin 13.9 g/dL (12.0-15.0); Lymphocyte # 1.57 X10^3/ul (0.83-4.51); Mean Corpuscular Volume 83.7 fL (81-99); Mean Platelet Vol. 10.3 fl (6.2-12.0); Monocyte# 0.45 X10^3/uL; NRBC Flagged by Analyzer 0 % (0-5); Neutrophil # 1.57 X10^3/uL (2.7-7.7); Platelet Count 294 K/mm3 (150-450); RBC Distribution Width SD 45.4 fl (35.1-43.9); Red Blood Count 5.35 M/mm3 (4.2-5.4); White Blood Count 3.7 K/mm3 (4.4-11.0)
--- NOTE | 2021-02-11 16:54 | RAD_ITS ---
STUDY: X-RAY CHEST REASON FOR EXAM: Female, 51 years old. Dyspnea TECHNIQUE: Single AP portable view of the chest. COMPARISON: 11/23/2020. FINDINGS: The lungs are clear and expanded. There is no demonstrated pleural abnormality. There is mild cardiac enlargement. Normal mediastinum and pamella. Normal visualized pulmonary arteries. Normal visualized aortic arch and descending thoracic aorta. Normal visualized thoracic spine. Normal visualized ribs, clavicles, and shoulders. There is no demonstrated abnormality of the visualized soft tissue structures of the upper abdomen. RAD/Chest 1 View (Portable) IMPRESSION: Mild cardiac enlargement. No acute findings. Electronically Signed: Larissa Mcdaniels MD at 17:25 EDT Tel , Service support ,
[2021-02-11 17:03] LABS: Color, Urine Yellow (Yellow); Glucose, Dipstick Normal (Normal); Ketone-Dipstick Negative (Negative); Leukocyte Esterase-Dipstick Negative /ul (Negative); Nitrite-Dipstick Negative (Negative); Occult Blood-Urine Negative /ul (Negative); Protein-Dipstick Negative (Negative); Urine Bilirubin Dipstick Negative (Negative); Urine Clarity Clear (Clear); Urine Urobilinogen 4 mg/dl (Normal)
[2021-02-11 17:21] LABS: ALB/GLOB Ratio 0.9 RATIO (0.9-2.4); AST(SGOT) 43 U/L (15-37); Alanine Aminotransfer ALT/SGPT 31 U/L (13-56); Albumin, Serum 3.8 g/dL (3.2-5.0); Alkaline Phosphatase 112 U/L (45-117); Anion Gap 6 (5-15); BUN 12 mg/dL (7-18); BUN/Creat Ratio 14.6 RATIO (10-20); Calcium,Total 8.8 mg/dL (8.5-10.1); Chloride 108 mmol/L (98-107); Creatinine, Serum 0.82 mg/dL (0.55-1.02); EST Glomerular Filtration Rate 78 mL/min (>60); Est Glom Filt Rate - Afr Amer 95 mL/min (>60); Estimated Creatinine Clearance 76.84 ml/min; Globulin 4.3 g/dL (2.2-4.2); Glucose 92 mg/dL (74-106); Lipase 56 U/L (73-393); Potassium 5.1 mmol/L (3.5-5.1); Protein, Total 8.1 g/dL (6.4-8.2); Sodium Level 139 mmol/L (136-145)
[2021-02-11 17:25] LABS: Bacteria RARE /hpf (None Seen); Squamous Epithelial Cells - UA 0-5 SEEN /hpf (5-10)
[2021-02-11 19:12] VITALS: BP 128/82; PULSE 63; RESP 19; O2SAT 100
[2021-02-11] MEDS: levETIRAcetam 750 MG Tablet PO (19:45)
--- NOTE | 2021-02-11 20:17 | ED.RN ---
cammy reports she called her daughter and she does not drive and told patient she does not know anyone to be able to come and get her. Pt state she does not have money for a cab and did not bring her phone so she does not know of anyone else she can call
--- NOTE | 2021-02-11 20:22 | ED.RN ---
patient is aware she is waiting for doctor eval and not d/c at this time but gave her the numbers in her demographics for sisters to call and see if they can call for a ride to get her home or get her home and patient states the one sister lives in [place] and cannot get her and the other one is in [place] and does not drive. Encouraged patient to call and see if they can help call around for a ride because she cannot walk home as it is too far and I do not have another wy to get her home at this time
[2021-02-11 20:59] VITALS: BP 133/89; PULSE 64; RESP 14; O2SAT 96
== END 2021-02-11 21:00 | disposition home or self-care (01) ==
PROVIDERS: Emergency Provider Emergency Medicine; PCP Family Medicine
DX: R10.9 Unspecified abdominal pain (principal); R51.9 Headache, unspecified; R11.0 Nausea; R06.00 Dyspnea, unspecified; K59.00 Constipation, unspecified; I48.20 Chronic atrial fibrillation, unspecified; E78.2 Mixed hyperlipidemia; D50.9 Iron deficiency anemia, unspecified; E05.90 Thyrotoxicosis, unspecified without thyrotoxic crisis or storm; F12.90 Cannabis use, unspecified, uncomplicated; Z86.73 Personal history of transient ischemic attack (TIA), and cerebral infarction without residual deficits; Z79.01 Long term (current) use of anticoagulants; Z79.899 Other long term (current) drug therapy; Z87.891 Personal history of nicotine dependence
CPT/HCPCS: 71045; 74177; 80053; 81001; 83690; 85025; 93005; 96361; 96374; 99285; J7030; Q9967; A4216; J2405

== ENCOUNTER → 2021-05-07 14:03 | Outpatient (CLI) | payer MEDICARE, MEDICAID, SELFPAY ==
[2021-05-07 16:14] LABS: Free T3 3.2 pg/mL (2.18-3.98); T4 Free Direct 1.08 ng/dL (0.76-1.46); Thyroid Stim Hormone (TSH) 0.01 uIU/mL (0.358-3.74)
[2021-05-09 10:33] LABS: Thyroid Peroxidase AB 495 IU/mL (0-34)
== END ==
PROVIDERS: PCP Family Medicine; Referring Provider Internal Medicine Endocrinology, Diabetes & Metabolism; Visit Provider Internal Medicine Endocrinology, Diabetes & Metabolism
DX: E05.90 Thyrotoxicosis, unspecified without thyrotoxic crisis or storm (principal); E04.2 Nontoxic multinodular goiter
CPT/HCPCS: 36415; 84439; 84443; 84481; 86376

== ENCOUNTER 2021-07-03 04:16 | Emergency (ER) | payer MEDICARE, MEDICAID, SELFPAY ==
[2021-07-03 04:18] VITALS: BP 138/86; PULSE 77; RESP 16; TEMP 36.1; O2SAT 97; BMI 36.6
--- NOTE | 2021-07-03 04:33 | EDS_ITS ---
HPI History of Present Illness Chief Complaint: Dental Narrative Narrative: 51-year-old female presenting with dental pain which she says she has had for at least 4 years. She states she has been referred to a dentist multiple times but they do not take her insurance. She states the last time that she attempted to follow-up with her dentist was a few years ago. She states that her tooth has been bothering her on the right mandibular area for a while now. She not had any fevers or chills. No difficulty swallowing or breathing. Patient does state from time to time she gets a headache. She took Tylenol prior to arrival. [facility] Medical History Chronic a-fib History of stroke with residual effects History of traumatic head injury Hyperlipidemia, mixed Hyperthyroidism Iron deficiency anemia Left-sided weakness Marijuana smoker Memory deficits Memory loss Stroke due to embolism Home Medications ferrous sulfate 325 mg PO DAILY@0800 #30 tab 02/11/17 [Rx Last Taken 05/23/19] atorvastatin 80 mg tablet 80 mg PO QHS #30 tab 11/11/17 [Rx Last Taken 05/22/19] apixaban 5 mg PO BID 04/16/19 [History Last Taken 05/23/19] carvedilol 12.5 mg PO BID 08/20/19 [History Last Taken Unknown] meclizine 25 mg PO 4X/DAY PRN PRN #20 tab 10/28/20 [Rx Last Taken Unknown] acetaminophen 500 mg tablet 500 mg PO Q6H PRN tab 11/01/20 [History Last Taken Unknown] phenol 1 spray MM TID #1 bottle 11/23/20 [Rx Last Taken Unknown] carvedilol 6.25 mg tablet 6.25 mg PO BID tab 05/07/21 [History Last Taken Unkno wn] propylthiouracil 50 mg tablet 50 mg PO .COMPLEX #40 tab 06/03/21 [Rx Last Taken Unknown] levetiracetam 750 mg tablet 750 mg PO BID #60 tab 06/04/21 [Rx Last Taken Unknown] acetaminophen [8 Hour Pain Reliever] 650 mg PO Q8H PRN #20 tab 07/03/21 [Rx Last Taken Unknown] amoxicillin-pot clavulanate [Augmentin] 1 tab PO BID #20 tab 07/03/21 [Rx Last Taken Unknown] Allergy/AdvReac Type Severity Reaction Status Date / Time No Known Allergies Allergy Verified 05/07/21 13:29 Family History Sister Diabetes Grandmother CVA (cerebral vascular accident) Social History Smoking Status: Current every day smoker tobacco type: cigarettes Tobacco: How many years used: 10 Electronic Cigarette Use: not used second hand exposure: No alcohol intake: former substance use type: marijuana ROS ROS ED Constitutional Constitutional ED: Denies chills or fever(s) Eyes Eyes: Denies blurry vision or change in vision ENT ENT ED: Reports other Details: Dental pain ; Denies ear pain or rhinorrhea Cardiovascular Cardiovascular: Denies chest pain or palpitations Respiratory/Chest Respiratory/Chest: Denies cough or dyspnea Gastrointestinal Gastrointestinal: Denies abdominal pain or nausea Genitourinary Genitourinary ED: Denies dysuria or hematuria Musculoskeletal Musculoskeletal: Denies arthralgias, back pain, myalgias or neck pain Integumentary Denies rash Neurologic Neurologic: Reports headache(s) EXAM Physical Exam Const Vital Signs: 07/03/21 04:18 Temperature 96.9 F L Temperature Source Temporal Pulse Rate 77 Respiratory Rate 16 Blood Pressure 138/86 H Blood Pressure Mean 103 Pulse Ox 97 Oxygen Delivery Method Room Air Positive well nourished General Appearance ED: NAD HEENT HEENT Narrative: Patient has partially edentulous on the right mandibular area. There are some eroded teeth in this area. The gingival is normal. Buccal mucosa was normal. No sublingual edema Negative for trauma Teeth and Gingiva: caries and poor dentition Eyes PERRL and EOMs intact bilaterally Neck no lymphadenopathy and supple Cardio regular rate and regular rhythm Neuro oriented x3 Sensorium / Orientation: alert Psych mental status grossly normal Skin no rashes or lesions noted MDM MDM MDM Narrative Medical decision making narrative: Patient scented she is in multiple stages of dental caries. There is erosion of the teeth on the right mandible. I will start the patient on Augmentin for this. She will be given Tylenol as this seemed to have helped her pain prior to arrival. Patient was given a dental referral sheet. She is counseled to follow-up with her primary care physician as well. Patient stable for discharge. Impression: 1. Dental pain Discharge Plan Triage Chief Complaint: Dental ED Provider: Jake Zarco Dx/Rx/DC Orders Instructions: ED Dental Cavity Prescriptions: New acetaminophen [8 Hour Pain Reliever] 650 mg tablet extended release 650 mg PO Q8H PRN (Reason: pain) Qty: 20 RF: 0 amoxicillin-pot clavulanate [Augmentin] 875-125 mg tablet 1 tab PO BID Qty: 20 RF: 0 No Action acetaminophen [Tylenol Extra Strength] 500 mg tablet 500 mg PO Q6H PRNRF: 0 carvedilol 6.25 mg tablet 6.25 mg PO BID RF: 0 ferrous sulfate 325 MG tablet 325 mg PO DAILY@0800 Qty: 30 RF: 0 apixaban 5 MG tablet 5 mg PO BID RF: 0 carvedilol 12.5 MG tablet 12.5 mg PO BID RF: 0 meclizine 25 MG tablet 25 mg PO 4X/DAY PRN PRN (Reason: Dizziness) Qty: 20 RF: 0 phenol 20 ML aerosol,spray 1 spray MM TID Qty: 1 RF: 0 atorvastatin 80 mg tablet 80 mg PO QHS Qty: 30 RF: 11 propylthiouracil 50 mg tablet 50 mg PO .COMPLEX Qty: 40 RF: 5 levetiracetam 750 mg tablet 750 mg PO BID Qty: 60 RF: 0 Primary Care Provider: Cheko Colbert Referrals: Cheko Colbert MD [Primary Care Provider] - Disposition Disposition: Home, Self Care
[2021-07-03] MEDS: Naproxen 500 MG Tablet PO (04:47)
[2021-07-03] MEDS: Amox/Clavulanate 875 MG Tablet PO (04:47)
== END 2021-07-03 05:15 | disposition home or self-care (01) ==
PROVIDERS: Emergency Provider Student in an Organized Health Care Education/Training Program; PCP Family Medicine
DX: K03.2 Erosion of teeth (principal); K02.9 Dental caries, unspecified; I48.20 Chronic atrial fibrillation, unspecified; E78.2 Mixed hyperlipidemia; D50.9 Iron deficiency anemia, unspecified; E05.90 Thyrotoxicosis, unspecified without thyrotoxic crisis or storm; Z86.73 Personal history of transient ischemic attack (TIA), and cerebral infarction without residual deficits; Z79.01 Long term (current) use of anticoagulants; Z79.899 Other long term (current) drug therapy; F17.210 Nicotine dependence, cigarettes, uncomplicated
CPT/HCPCS: 99285

== ENCOUNTER → 2021-07-18 13:43 | Outpatient (CLI) | payer MEDICARE, MEDICAID, SELFPAY ==
[2021-07-18 15:36] LABS: Hematocrit 41.7 % (37-47); Hemoglobin 13.4 g/dL (12.0-15.0); Mean Corp Hgb Conc 32.1 g/dL (32-36); Mean Corpuscular Hgb 26.4 pg (27.0-32.0); Mean Corpuscular Volume 82.1 fL (81-99); Mean Platelet Vol. 10.6 fl (6.2-12.0); Platelet Count 296 K/mm3 (150-450); RBC Distribution Width CV 13.9 % (11.6-14.6); RBC Distribution Width SD 41.1 fl (35.1-43.9); Red Blood Count 5.08 M/mm3 (4.2-5.4); White Blood Count 4.2 K/mm3 (4.4-11.0)
[2021-07-24 16:13] LABS: KEPPRA (LEVETIRACETAM) 20.7 ug/mL (10.0-40.0)
== END ==
PROVIDERS: PCP Family Medicine; Referring Provider Nurse Practitioner Family; Visit Provider Nurse Practitioner Family
DX: G40.909 Epilepsy, unspecified, not intractable, without status epilepticus (principal)
CPT/HCPCS: 36415; 80177; 82140; 85027

== ENCOUNTER 2021-09-05 08:39 | Inpatient (IN) | payer MEDICARE, MEDICAID, SELFPAY ==
[2021-09-05] VITALS (14 sets, daily range): BP systolic 98–131; BP diastolic 61–86; PULSE 54–102; RESP 16–30; TEMP 36.3–37.2; O2SAT 86–99; BMI 34.4; BMI 33.8
--- NOTE | 2021-09-05 09:10 | RAD_ITS ---
STUDY: X-RAY CHEST REASON FOR EXAM: Female, 51 years old. Cough TECHNIQUE: Single AP portable view of the chest. COMPARISON: Comparison is made with prior study dated 02/11/2021. FINDINGS: EKG electrodes are seen. Minimal increased linear markings at the right lung base suggestive of a right linear atelectasis. Stable mild elevation of the right hemidiaphragm. There is no demonstrated pleural abnormality. There is borderline cardiomegaly. Normal mediastinum and pamella. Normal visualized pulmonary arteries. Normal visualized aortic arch and descending thoracic aorta. Normal visualized thoracic spine. Normal visualized ribs, clavicles, and shoulders. There is no demonstrated abnormality of the visualized soft tissue structures of the upper abdomen. RAD/Chest 1 View (Portable) IMPRESSION: Borderline cardiomegaly. Minimal increased linear markings at the right lung base suggestive of mild degree of linear basilar atelectasis. Electronically Signed: Regulo Vega MD at 10:59 EST , Service support ,
--- NOTE | 2021-09-05 09:10 | EKG12_ITS ---
Test Reason : Blood Pressure : / mmHG Vent. Rate : 093 BPM Atrial Rate : 241 BPM P-R Int : 000 ms QRS Dur : 086 ms QT Int : 358 ms P-R-T Axes : 000 100 042 degrees QTc Int : 445 ms Atrial fibrillation Low voltage QRS Nonspecific T wave abnormality Abnormal ECG Confirmed by TANGELA VICTOR, GIRISH ([id number]), desk editor ADIN JOHNSON ([id number]) on 09/06/2021 9:32:58 AM Referred By: MARIANA Confirmed By:GIRISH HONEYCUTT MD
--- NOTE | 2021-09-05 09:11 | EX.ED.DYSGE1 ---
HPI History of Present Illness Chief Complaint: General Illness Detail of Chief Complaint: Not feeling well for 2 days Informant: patient Narrative Narrative: Patient presents to the emergency department stating that she has not been feeling well for the last several days. Patient states that she was exposed to her cousin last week who has COVID. Patient complains of cough and headache and body aches. She complains of low back pain. She denies urinary symptoms. Patient has not had her COVID-vaccine. Patient has history of prior stroke as well as A. fib and history of high cholesterol. Patient denies chest pain or significant shortness of breath. [facility] Medical History (Updated 09/05/21 @ 11:[address] Jerardo Arreguin, ) Chronic a-fib History of stroke with residual effects History of traumatic head injury Hyperlipidemia, mixed Hyperthyroidism Iron deficiency anemia Left-sided weakness Marijuana smoker Memory deficits Memory loss Stroke due to embolism Tension headache Home Medications ferrous sulfate 325 mg PO DAILY@0800 #30 tab 02/11/17 [Rx Last Taken 05/23/19] atorvastatin 80 mg tablet 80 mg PO QHS #30 tab 11/11/17 [Rx Last Taken 05/22/19] apixaban 5 mg PO BID 04/16/19 [History Last Taken 05/23/19] carvedilol 12.5 mg PO BID 08/20/19 [History Last Taken Unknown] meclizine 25 mg PO 4X/DAY PRN PRN #20 tab 10/28/20 [Rx Last Taken Unknown] acetaminophen 500 mg tablet 500 mg PO Q6H PRN tab 11/01/20 [History Last Taken Unknown] phenol 1 spray MM TID #1 bottle 11/23/20 [Rx Last Taken Unknown] acetaminophen [8 Hour Pain Reliever] 650 mg PO Q8H PRN #20 tab 07/03/21 [Rx Last Taken Unknown] levetiracetam 750 mg tablet 750 mg PO BID #60 tab 07/18/21 [Rx Last Taken Unknown] lactulose 10 gram/15 mL oral solution 15 ml PO BID #946 ml 07/24/21 [Rx Last Taken Unknown] propylthiouracil 50 mg PO SUTUTHSA 09/05/21 [History Last Taken Unknown] propylthiouracil 100 mg PO MOWEFR 09/05/21 [History Last Taken Unknown] Allergy/AdvReac Type Severity Reaction Status Date / Time No Known Allergies Allergy Verified 09/05/21 08:48 Family History Sister Diabetes Grandmother CVA (cerebral vascular accident) Social History Smoking Status: Current every day smoker tobacco type: cigarettes Tobacco: How many years used: 10 Electronic Cigarette Use: not used second hand exposure: No alcohol intake: former substance use type: marijuana ROS ROS ED Constitutional Constitutional ED: Reports systems reviewed and no addt'l complaints, except as documented; Denies body ache(s), change in weight or chills Eyes Eyes: Denies acute decrease in peripheral vision, change in vision, double vision or loss of vision ENT ENT ED: Reports none; Denies ear pain, lip swelling, loss taste/smell, neck pain, otalgia or sore throat Cardiovascular Cardiovascular: Reports none; Denies abdominal pain, chest pain with activity, leg edema, lightheadedness, palpitations, rapid heart rate or syncope Respiratory/Chest Respiratory/Chest: Reports none and cough; Denies change in mental status, dry cough, dyspnea, hemoptysis, shortness of breath at rest or shortness of breath with exertion Gastrointestinal Gastrointestinal: Reports none; Denies abdominal pain, change in stool character, diarrhea, hematemesis, hematochezia, melena, rectal bleeding or vomiting Genitourinary Genitourinary ED: Reports none; Denies abdominal discomfort, anuria, dysuria, genital pain or polyuria Musculoskeletal Musculoskeletal: Reports none, back pain and myalgias; Denies arthralgias, difficulty walking, extremity pain or muscle weakness Integumentary Reports none; Denies abscess or rash Neurologic Neurologic: Reports none, headache(s) and weakness; Denies abnormal gait, confusion, focal weakness, frequent falls, loss of vision, numbness, paresthesias, radicular pain or vertigo Psychiatric Psychiatric: Reports systems reviewed and no addt'l complaints, except as documented and none; Denies behavioral changes, confusion, difficulty concentrating, hallucinations, suicidal ideation, tactile hallucinations or visual hallucinations Endocrine Endocrinology: Denies none, cold intolerance, excessive sweating, fatigue or heat intolerance Hematologic/Lymphatic Hematologic/Lymphatic: Reports none; Denies anemia, easy bleeding or easy bruising Allergic/Immunologic Allergic/Immunologic ED: Denies as per HPI, none, lip swelling, mouth swelling, throat swelling, tongue swelling or hives EXAM Physical Exam Const Vital Signs: 09/05/21 08:43 09/05/21 08:46 09/05/21 10:23 Temperature 99.0 F 99.0 F 97.6 F L Temperature Source Oral Oral Oral Pulse Rate 94 95 81 Respiratory Rate 24 H 30 H 18 Blood Pressure 111/83 H 112/69 114/86 H Blood Pressure Mean 92 83 95 Pulse Ox 96 92 86 Oxygen Delivery Method Room Air Room Air Room Air Oxygen Flow Rate (L/min) 09/05/21 10:25 Temperature Temperature Source Pulse Rate Respiratory Rate Blood Pressure Blood Pressure Mean Pulse Ox 99 Oxygen Delivery Method Nasal Cannula Oxygen Flow Rate (L/min) 2 Positive well nourished and well developed General Appearance ED: well developed and NAD HEENT Reports TM's clear and moist mucous membranes normocephalic and atraumatic; Negative for trauma or tenderness Tympanic Membrane ED: Yes TM's clear Eyes PERRL and EOMs intact bilaterally General Eye ED: Negative for pale conjunctiva or scleral icterus Neck no lymphadenopathy, supple and no JVD General: Negative for tenderness Chest Wall inspection of chest normal and palpation of chest normal Chest: Negative for tenderness Resp normal respiratory effort and clear to auscultation bilaterally Effort and Inspection: Negative for respiratory distress or pain with movement Auscultation: Negative for rhonchi, wheezes or diminished lung sounds Cardio regular rate, regular rhythm, S1 normal heart sound, S2 normal heart sound and no murmurs Peripheral Pulses: pulses 2+ throughout GI normal to inspection, nondistended, normoactive bowel sounds, soft to palpation, non-tender, non-distended and no masses Back/Spine no CVA tenderness and no thoracic nor lumbar tenderness Extremity normal to inspection General Extremety ED: Negative for edema General Extremity: Negative for edema Neuro oriented x3, CN's II-XII intact bilaterally, no sensory deficits noted and gait normal Sensorium / Orientation: awake, alert, oriented to person, oriented to place and oriented to time Motor Exam: strength 5/5 throughout and strength abnormal Psych mental status grossly normal Skin no rashes or lesions noted and no wounds MDM MDM MDM Narrative Medical decision making narrative: IV line established on arrival. Patient noted to have COVID-19. Patient feels too weak to go home with difficulty ambulating. Case was discussed with hospitalist evaluate for admission. Lab Data Attestation: I reviewed the patient's lab results. Labs: Laboratory Results - last 24 hr 09/05/21 09/05/21 09/05/21 08:57 08:57 10:02 WBC 2.7 L RBC 5.47 H Hgb 14.3 Hct 45.0 MCV 82.3 MCH 26.1 L MCHC 31.8 L RDW Std Deviation 42.5 RDW Coeff of Suzette 14.2 Plt Count 194 MPV 12.0 Immature Gran % (Auto) 0.700 Neut % (Auto) 46.7 L Lymph % (Auto) 42.3 H [place] % (Auto) 9.9 Eos % (Auto) 0.0 Baso % (Auto) 0.4 Absolute Neuts (auto) 1.3 L Absolute Lymphs (auto) 1.16 Nucleated RBC % 0 Differential Comment SCANNED Reactive Lymphocytes 1+ Sodium 138 Potassium 4.6 Chloride 102 Carbon Dioxide 30.0 Anion Gap 6 BUN 9 Creatinine 0.82 Estim Creat Clear Calc 76.84 Est GFR (MDRD) Af Amer 95 Est GFR (MDRD) Non-Af 79 BUN/Creatinine Ratio 11.0 Glucose 95 Lactic Acid 0.9 Calcium 8.8 Troponin I High Sens 39 Radiography Diagnostic Testing: Clinical Impression(s) from Imaging Studies Chest X-Ray 09/05/21 09:10 IMPRESSION: Borderline cardiomegaly. Minimal increased linear markings at the right lung base suggestive of mild degree of linear basilar atelectasis. Electronically Signed: Regulo Vega MD at 10:59 EST , Service support , EKG Initial EKG: Attestation: I personally reviewed and interpreted this EKG as follows: Comments: A. fib with rate of [address] changes Discharge Plan Triage Chief Complaint: General Illness ED Provider: Jerardo Arreguin Dx/Rx/DC Orders Clinical Impression: Weakness, COVID-19 Prescriptions: No Action acetaminophen [Tylenol Extra Strength] 500 mg tablet 500 mg PO Q6H PRN (Reason: pain/fever) RF: 0 levetiracetam 750 mg tablet 750 mg PO BID Qty: 60 RF: 6 ferrous sulfate 325 MG tablet 325 mg PO DAILY@0800 Qty: 30 RF: 0 apixaban 5 MG tablet 5 mg PO BID RF: 0 carvedilol 12.5 MG tablet 12.5 mg PO BID RF: 0 meclizine 25 MG tablet 25 mg PO 4X/DAY PRN PRN (Reason: Dizziness) Qty: 20 RF: 0 phenol 20 ML aerosol,spray 1 spray MM TID Qty: 1 RF: 0 acetaminophen [8 Hour Pain Reliever] 650 mg tablet extended release 650 mg PO Q8H PRN (Reason: pain) Qty: 20 RF: 0 propylthiouracil 50 mg tablet 100 mg PO MOWEFR RF: 0 propylthiouracil 50 mg tablet 50 mg PO SUTUTHSA RF: 0 atorvastatin 80 mg tablet 80 mg PO QHS Qty: 30 RF: 11 lactulose 10 gram/15 mL solution 15 ml PO BID Qty: 946 RF: 3 Primary Care Provider: Cheko Colbert Referrals: Cheko Colbert MD [Primary Care Provider] - Disposition Disposition: Acute Care Hospital [facility]
[2021-09-05 09:23] LABS: Absolute Lymphocyte Count 1.16 X10^3/uL (0.83-4.51); Absolute Neutrophil Count 1.3 X10^3/uL (2.0-7.7); Basophil# 0.01 X10^3/uL; Basophil% 0.4 % (0-1); Hemoglobin 14.3 g/dL (12.0-15.0); Lymphocyte # 1.16 X10^3/ul (0.83-4.51); Lymphocyte % 42.3 % (19-41); Mean Corp Hgb Conc 31.8 g/dL (32-36); Mean Corpuscular Hgb 26.1 pg (27.0-32.0); Mean Corpuscular Volume 82.3 fL (81-99); Monocyte# 0.27 X10^3/uL; Monocyte% 9.9 % (0-10); NRBC Flagged by Analyzer 0 % (0-5); Neutrophil # 1.28 X10^3/uL (2.7-7.7); Neutrophil % 46.7 % (47-70); POSITIVE MORPHOLOGY YES; Platelet Count 194 K/mm3 (150-450); RBC Distribution Width CV 14.2 % (11.6-14.6); RBC Distribution Width SD 42.5 fl (35.1-43.9); Red Blood Count 5.47 M/mm3 (4.2-5.4); White Blood Count 2.7 K/mm3 (4.4-11.0)
[2021-09-05 09:25] LABS: Differential Indicated SCAN CRITERIA MET
[2021-09-05 09:40] LABS: Anion Gap 6 (5-15); BUN 9 mg/dL (7-18); Calcium,Total 8.8 mg/dL (8.5-10.1); Chloride 102 mmol/L (98-107); Creatinine, Serum 0.82 mg/dL (0.55-1.02); EST Glomerular Filtration Rate 79 mL/min (>60); Est Glom Filt Rate - Afr Amer 95 mL/min (>60); Estimated Creatinine Clearance 76.84 ml/min; Glucose 95 mg/dL (74-106); Potassium 4.6 mmol/L (3.5-5.1); Sodium Level 138 mmol/L (136-145); Troponin-I HS 39 pg/mL (3.0-54.0)
[2021-09-05 09:52] LABS: Differential Comment SCANNED; Reactive Lymphocyte 1+
[2021-09-05] MEDS: 0.9% Normal Saline 1,000 ML 150 ML IV (10:25)
[2021-09-05 10:41] LABS: Lactic Acid 0.9 mmol/L (0.4-1.9)
--- NOTE | 2021-09-05 11:19 | PCM.HP.STD ---
HPI - General General Date of Admission: 09/05/21 Date of Service: 09/05/21 Chief Complaint: Mild cough, generalized weakness, shortness of breath on exertion for past 5 days HPI Narrative OMER NÚÑEZ, is a 51 F with multiple comorbidities as listed below came to ED for symptoms of cough, chest pain, shortness of breath on exertion, generalized weakness, loss of appetite, sinus congestion. She is not a good historian and is not forthcoming or does not remember the chronology of the events. She is not able to get up from the bed or chair. She is not able to walk but she was ambulating before. She has shortness of breath progressively worsening since past Thursday mainly on exertion. Complain of intermittent sharp chest pain midsternal in location, localized without radiation mainly on cough. High-sensitivity troponin negative. She has history of multiple comorbidities which include seizure last episode 5 years ago, stroke, memory loss/deficit with left-sided weakness and tension headache. She is very slow to respond probably due to amnesia. In ED, twelve-lead EKG shows A. fib 93 bpm, QTC 445 ms. She has history of chronic A. fib and is on Eliquis she took last dose in the morning today. Vitals reviewed, T-max 99 Fahrenheit. Pulse ox 86% on room air, 99% on 2 L of oxygen. Chest x-ray right lung base linear Missile atelectasis, independently reviewed. [facility] Medical History Chronic a-fib History of stroke with residual effects History of traumatic head injury Hyperlipidemia, mixed Hyperthyroidism Iron deficiency anemia Left-sided weakness Marijuana smoker Memory deficits Memory loss Stroke due to embolism Tension headache Home Medications ferrous sulfate 325 mg PO DAILY@0800 #30 tab 02/11/17 [Rx Last Taken 05/23/19] atorvastatin 80 mg tablet 80 mg PO QHS #30 tab 11/11/17 [Rx Last Taken 05/22/19] apixaban 5 mg PO BID 04/16/19 [History Last Taken 05/23/19] carvedilol 12.5 mg PO BID 08/20/19 [History Last Taken Unknown] meclizine 25 mg PO 4X/DAY PRN PRN #20 tab 10/28/20 [Rx Last Taken Unknown] acetaminophen 500 mg tablet 500 mg PO Q6H PRN tab 11/01/20 [History Last Taken Unknown] phenol 1 spray MM TID #1 bottle 11/23/20 [Rx Last Taken Unknown] acetaminophen [8 Hour Pain Reliever] 650 mg PO Q8H PRN #20 tab 07/03/21 [Rx Last Taken Unknown] levetiracetam 750 mg tablet 750 mg PO BID #60 tab 07/18/21 [Rx Last Taken Unknown] lactulose 10 gram/15 mL oral solution 15 ml PO BID #946 ml 07/24/21 [Rx Last Taken Unknown] propylthiouracil 50 mg PO SUTUTHSA 09/05/21 [History Last Taken Unknown] propylthiouracil 100 mg PO MOWEFR 09/05/21 [History Last Taken Unknown] Allergy/AdvReac Type Severity Reaction Status Date / Time No Known Allergies Allergy Verified 09/05/21 08:48 Family History Sister Diabetes Grandmother CVA (cerebral vascular accident) Social History Smoking Status: Current every day smoker tobacco type: cigarettes Tobacco: How many years used: 10 Electronic Cigarette Use: not used second hand exposure: No alcohol intake: former substance use type: marijuana ROS ROS Narrative Constitutional: Reports fatigue and weakness HEENT: Reports systems reviewed and no addt'l complaints, except as documented Respiratory/Chest: Still a smoker, 10 cigarettes/day. Rest as mentioned in HPI Gastrointestinal: Denies coffee ground emesis, hematemesis or vomiting Genitourinary: Denies burning urination or new urinary tract symptoms Musculoskeletal: Reports joint pain and limited range of motion Neurologic: Denies seizure-like activity skin: No ulcer. No rash Endocrinology: Reports systems reviewed and no addt'l complaints, except as documented Hematologic/Lymphatic: Reports systems reviewed and no addt'l complaints, except as documented Rest 14 ROS are negative except as mentioned in HPI Vital Signs Vital Signs Vital Signs: 09/05/21 08:43 09/05/21 08:46 09/05/21 10:23 Temperature 99.0 F 99.0 F 97.6 F L Temperature Source Oral Oral Oral Pulse Rate 94 95 81 Respiratory Rate 24 H 30 H 18 Blood Pressure 111/83 H 112/69 114/86 H Blood Pressure Mean 92 83 95 Pulse Ox 96 92 86 Oxygen Delivery Method Room Air Room Air Room Air Oxygen Flow Rate (L/min) 09/05/21 10:25 Temperature Temperature Source Pulse Rate Respiratory Rate Blood Pressure Blood Pressure Mean Pulse Ox 99 Oxygen Delivery Method Nasal Cannula Oxygen Flow Rate (L/min) 2 Weight Weight: 213 lb 6.519 oz Body Mass Index (BMI) 34.4 Physical Exam Narrative General: Alert, Oriented x3, Cooperative HEENT: Atraumatic, PERRLA, EOMI, Normocephalic Oral: Dry mucosa. No Gingival or Mucosal Lesions/ Ulcerations Neck: Supple, No JVD, Negative Carotid Bruits Lungs: Air entry diminished in bilateral lung bases. No crepitation/rhonchi Cardiovascular: Irregular heart rhythm, A. fib, Normal S1, Normal S2, No murmurs Abdomen: Bowel Sounds Present, Soft, Non Tender, Non-Distended : Urine output clear no renal angle tenderness. No suprapubic tenderness. Extremities: Mild bilateral ankle pitting edema, Capillary Refill Less than 3 Seconds Skin: No rashes, No breakdown Musculoskeletal: No Tenderness to Palpation of Joints or Extremities Neurological: Cranial nerves II-XII grossly intact, DTR 2+/4 and Symmetrical, no recent seizure Psych/Mental Status: Flat affect, slow to respond, chronic amnesia. Results Lab / Micro Data Result Diagrams: 09/05/21 08:57 09/05/21 08:57 Labs: Laboratory Results - last 24 hr 09/05/21 08:57: WBC 2.7 L, RBC 5.47 H, Hgb 14.3, Hct 45.0, MCV 82.3, MCH 26.1 L, MCHC 31.8 L, RDW Std Deviation 42.5, RDW Coeff of Suzette 14.2, Plt Count 194, MPV 12.0, Immature Gran % (Auto) 0.700, Neut % (Auto) 46.7 L, Lymph % (Auto) 42.3 H, [place] % (Auto) 9.9, Eos % (Auto) 0.0, Baso % (Auto) 0.4, Absolute Neuts (auto) 1.3 L, Absolute Lymphs (auto) 1.16, Nucleated RBC % 0, Differential Comment SCANNED, Reactive Lymphocytes 1+ 09/05/21 08:57: Sodium 138, Potassium 4.6, Chloride 102, Carbon Dioxide 30.0, Anion Gap 6, BUN 9, Creatinine 0.82, Estim Creat Clear Calc 76.84, Est GFR (MDRD) Af Amer 95, Est GFR (MDRD) Non-Af 79, BUN/Creatinine Ratio 11.0, Glucose 95, Calcium 8.8, Troponin I High Sens 39 09/05/21 10:02: Lactic Acid 0.9 Micro: Microbiology 09/05/21 09:19 Mucosa - Nose Influenza Types A,B Direct FA (JULI) - Final 09/05/21 08:45 Nasal Secretion SARS-CoV-2 Antigen (Rapid) - Final SARS-CoV-2 (COVID 19) Radiology Impression Chest X-Ray 09/05/21 09:10 IMPRESSION: Borderline cardiomegaly. Minimal increased linear markings at the right lung base suggestive of mild degree of linear basilar atelectasis. Electronically Signed: Regulo Vega MD at 10:59 EST , Service support , Assessment & Plan Assessment/Plan (1) COVID-19: (2) Weakness: PLAN: 1. COVID-19 infection with mild hypoxia: Her pulse ox was 96% on room air, 92% on room air for 2 months 86% on room air therefore inconsistent hypoxia. [facility]. Started on dexamethasone. Chest x-ray independently reviewed. If she needs more oxygen, hypoxic consider remdesivir. If patient needs airflow, BiPAP or high oxygen requirement, will need ID consult for baricitinib. Inflammatory markers ordered. CRP and LDH elevated. BNP normal. Isolated troponin normal. CK normal. D-dimer, fibrinogen and procalcitonin pending. Pneumonia work-up including urinary antigens and sputum culture ordered. No fever. 2. Generalized weakness, cannot ambulate debility probably due to COVID-19 infection with multiple comorbidities and decreased function at baseline: PT and OT ordered. IV fluid ordered. 3. 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 She saw neurologist Dr. Junior in October 2020 and as per note she was able to ambulate independently. Continue home home medications, Keppra 3. History of substance use in the past, cocaine and heroin, marijuana and history of alcohol use: 4. Coronary artery disease with ischemic cardiomyopathy, EF 45% 5. Graves' disease/hyperthyroidism: She follows Dr. Dwight Pate, economic development specialist from the last follow-up was in April 2020. Currently on PTU. Home dose continued 6. Chronic mild systolic heart failure with possible history ofNon-STEMI : Last echo in May 2019 shows EF 45%, LA and RA mildly enlarged. Mild MR and mild AR. Mild segmental dysfunction. VTE prophylaxis: Continue Eliquis from [employer]. She took in the morning today Living will/advanced directive/end of life care: Patient does not have living will or advanced directive. Patient does not have designated power of assistant prosecuting attorney for health. After discussion of benefits/risks procedures involved with full code, DNR CC arrest and DNR CC, the patient opted for full code. Patient does want artificial life support including intubation, tube feed, ventilator and/chest compression, central venous catheter, vasopressor and DC shock if needed Total time spent in [id number] encounter in discussion of advanced directive 16 minutes. Charges/Coding Visit Charges Inpatient E&M: 41309 Init Hosp L3 Procedures Hospitalists Procedures: 25694 Advncd Care Plan 30 Min
[2021-09-05 11:25] LABS: Color, Urine Yellow (Yellow); Glucose, Dipstick Normal (Normal); Ketone-Dipstick 5 mg/dl (Negative); Leukocyte Esterase-Dipstick 25 /ul (Negative); Nitrite-Dipstick Negative (Negative); Occult Blood-Urine 10 /ul (Negative); Protein-Dipstick 100 mg/dl (Negative); Urine Bilirubin Dipstick Negative (Negative); Urine Clarity Sl. Cloudy (Clear); Urine Urobilinogen Normal (Normal)
[2021-09-05 11:34] LABS: Bacteria 2+ /hpf (None Seen); Mucous, Urine 1+ /hpf (<or=2+); Red Blood Cells-Urine 0-5 SEEN /hpf (0-5); Squamous Epithelial Cells - UA 0-5 SEEN /hpf (5-10); White Blood Cells 0-5 SEEN /hpf (0-5)
[2021-09-05 12:11] LABS: BNP,B-Type NATRIURETIC PEPTIDE 27.3 pg/mL (0-100)
[2021-09-05 12:20] LABS: Phosphorus 3.5 mg/dL (2.5-4.9)
[2021-09-05 12:21] LABS: CPK Total, Creatine Kinase 127 U/L (26-192); LDH 713 U/L (84-246); Magnesium 2.3 mg/dL (1.6-2.6)
[2021-09-05] MEDS: Meclizine HCl 25 MG Tablet PO (14:24)
[2021-09-05] MEDS: levETIRAcetam 750 MG Tablet PO ×2 (14:24→23:05)
[2021-09-05] MEDS: Ibuprofen 400 MG Tablet PO (14:25)
[2021-09-05] MEDS: APIXABAN 5 MG TABLET PO ×2 (14:25→23:04)
--- NOTE | 2021-09-05 14:49 | NURSING ---
meds that were not given on adm, have not arrived to unit from Rx, and are unavailable in accudose
[2021-09-05 15:49] LABS: D-Dimer Quantitative (DVT/PE) 0.66 FEU/ug/m (0.27-0.49); Fibrinogen 450 mg/dl (203-444)
[2021-09-05] MEDS: guaiFENesin/D-Methorphan TAB.SR.12H 1 TABLET PO ×2 (16:33→23:06)
[2021-09-05] MEDS: dexAMETHasone 10 MG/ML Vial 6 MG IV (16:33)
[2021-09-05] MEDS: 0.9% Normal Saline 1,000 ML 75 ML IV (17:30)
--- NOTE | 2021-09-05 18:05 | NURSING ---
2nd throat culture sent to lab per labs request
[2021-09-05] MEDS: Lactulose 20 GM/30 ML UDC 10 GM PO (23:02)
[2021-09-05] MEDS: Atorvastatin Calcium 80 MG Tablet PO (23:05)
[2021-09-06] VITALS (11 sets, daily range): BP systolic 96–109; BP diastolic 66–79; PULSE 60–109; RESP 18–20; TEMP 35.6–36.5; O2SAT 81–96
[2021-09-06 07:48] LABS: Absolute Lymphocyte Count 1.18 X10^3/uL (0.83-4.51); Absolute Neutrophil Count 1.3 X10^3/uL (2.0-7.7); Basophil# 0.01 X10^3/uL; Basophil% 0.4 % (0-1); Hematocrit 44.1 % (37-47); Hemoglobin 13.8 g/dL (12.0-15.0); Lymphocyte # 1.18 X10^3/ul (0.83-4.51); Lymphocyte % 41.5 % (19-41); Mean Corp Hgb Conc 31.3 g/dL (32-36); Mean Corpuscular Hgb 26.2 pg (27.0-32.0); Mean Corpuscular Volume 83.8 fL (81-99); Mean Platelet Vol. 10.7 fl (6.2-12.0); Monocyte% 10.6 % (0-10); NRBC Flagged by Analyzer 0 % (0-5); Neutrophil # 1.34 X10^3/uL (2.7-7.7); Neutrophil % 47.1 % (47-70); POSITIVE MORPHOLOGY YES; Platelet Count 194 K/mm3 (150-450); RBC Distribution Width CV 14.5 % (11.6-14.6); RBC Distribution Width SD 44.2 fl (35.1-43.9); Red Blood Count 5.26 M/mm3 (4.2-5.4); White Blood Count 2.8 K/mm3 (4.4-11.0)
[2021-09-06 07:54] LABS: Differential Indicated SCAN CRITERIA MET
--- NOTE | 2021-09-06 07:57 | PCS.PANDOC ---
PANDEMIC DOCUMENTATION INITIATED: Date: 04/01/2021 Time: 190
[2021-09-06 08:32] LABS: ALB/GLOB Ratio 0.7 RATIO (0.9-2.4); AST(SGOT) 34 U/L (15-37); Alanine Aminotransfer ALT/SGPT 19 U/L (13-56); Albumin, Serum 2.8 g/dL (3.2-5.0); Alkaline Phosphatase 74 U/L (45-117); Anion Gap 3 (5-15); BUN 9 mg/dL (7-18); BUN/Creat Ratio 13.8 RATIO (10-20); Calcium,Total 8.3 mg/dL (8.5-10.1); Chloride 109 mmol/L (98-107); Creatinine, Serum 0.65 mg/dL (0.55-1.02); EST Glomerular Filtration Rate 102 mL/min (>60); Est Glom Filt Rate - Afr Amer 123 mL/min (>60); Estimated Creatinine Clearance 100.69 ml/min; Glucose 83 mg/dL (74-106); Potassium 4.2 mmol/L (3.5-5.1); Protein, Total 6.8 g/dL (6.4-8.2); Sodium Level 140 mmol/L (136-145); Thyroid Stim Hormone (TSH) 0.11 uIU/mL (0.358-3.74)
--- NOTE | 2021-09-06 09:55 | CASEMGMT ---
RN CM called patient in room for initial transition planning/care coordination assessment. RN CM introduced self and role at [facility]. Patient is alert and oriented. Patient willing to participate in assessment and is able to answer all questions appropriately. Care providers, pharmacy, and demographics verified. Patient wishes to discharge home, denies need for home health at this time. Patient states she has no further needs or concerns at this time. CM to follow for discharge planning needs that may arise. PCP: Sayra Specialists: none Preferred Pharmacy: [facility] Insurance: [facility] Prescription Benefit: yes Living Will/HPOA: none LNOK: Daughter Living Arrangements: Patient lives with daughter in a 2 story home with bed and bath on the first floor with 1 step and railing to enter. Patient states she was independent at home. Transportation: Taxi, [employer] DME/HHC: Patient denies DME or previous HHC. Will monitor for home oxygen at discharge. Patient states she has no preferences for DME. Disposition Plan: Patient to discharge home with family support and follow-up plans in place. Will monitor for HHC and home oxgyen. Paulina TAMAYO, RN, CM
[2021-09-06] MEDS: Ferrous Sulfate 325 MG Tablet PO (10:37)
[2021-09-06] MEDS: Lactulose 20 GM/30 ML UDC 10 GM PO ×2 (10:38→22:26)
[2021-09-06] MEDS: APIXABAN 5 MG TABLET PO ×2 (10:38→22:23)
[2021-09-06] MEDS: levETIRAcetam 750 MG Tablet PO ×2 (10:38→22:23)
[2021-09-06] MEDS: dexAMETHasone 10 MG/ML Vial 6 MG IV (10:38)
[2021-09-06] MEDS: Carvedilol 12.5 MG Tablet PO (10:38)
[2021-09-06] MEDS: guaiFENesin/D-Methorphan TAB.SR.12H 1 TABLET PO ×2 (10:39→22:25)
--- NOTE | 2021-09-06 11:00 | PCM.PN.HOSP ---
Subjective Subjective Doing well, maintaining oxygen saturations on 1 to 2 L nasal cannula. However since she is on oxygen will initiate treatment with remdesivir and continue with Decadron Objective Data Objective Data Vital Signs: Vital Signs Temp Pulse Resp BP Pulse Ox 97.7 F L 109 H 20 H 109/79 88 09/06/21 06:42 09/06/21 07:05 09/06/21 06:42 09/06/21 06:42 09/06/21 06:46 Oxygen Flow Rate (L/min) [At 2 REST with Oxygen] Oxygen Flow Rate (L/min) [ 3 AMBULATING with Oxygen #2] Oxygen Flow Rate (L/min) [ 2 AMBULATING with Oxygen #1] Oxygen Flow Rate (L/min) 2 Oxygen Delivery Method Nasal Cannula Weight: 217 lb 9.54 oz Body Mass Index (BMI) 33.8 Intake & Output: Intake and Output for Last 24 Hours 09/05/21 09/06/21 09/07/21 03:59 03:59 03:59 Intake Total 1350 / 1350 986.25 / 986.25 Balance 1350 / 1350 986.25 / 986.25 Lab / Micro Data Result Diagrams: 09/06/21 07:23 09/06/21 07:23 Labs: Laboratory Results - last 24 hr 09/05/21 08:57: Magnesium 2.3, Lactate Dehydrogenase 713 H, Total Creatine Kinase 127, C-React Prot Ext Range 28.60 H 09/05/21 08:57: B-Natriuretic Peptide 27.3 09/05/21 08:57: Phosphorus 3.5 09/05/21 11:18: Urine Color Yellow, Urine Clarity Sl. Cloudy, Urine pH 5.0, Ur Specific [place] 1.020, Urine Protein 100 H, Urine Glucose (UA) Normal, Urine Ketones 5 H, Urine Occult Blood 10 H, Urine Nitrite Negative, Urine Bilirubin Negative, Urine Urobilinogen Normal, Ur Leukocyte Esterase 25 H, Urine RBC 0-5 SEEN, Urine WBC 0-5 SEEN, Ur Squamous Epith Cells 0-5 SEEN, Urine Bacteria 2+, Urine Mucus 1+ 09/05/21 14:35: Fibrinogen 450 H, D-Dimer Quant (PE/DVT) 0.66 H* 09/05/21 14:35: Procalcitonin 0.10 H 09/06/21 07:23: WBC 2.8 L, RBC 5.26, Hgb 13.8, Hct 44.1, MCV 83.8, MCH 26.2 L, MCHC 31.3 L, RDW Std Deviation 44.2 H, RDW Coeff of Suzette 14.5, Plt Count 194, MPV 10.7, Immature Gran % (Auto) 0.400, Neut % (Auto) 47.1, Lymph % (Auto) 41.5 H, Hettinger % (Auto) 10.6 H, Eos % (Auto) 0.0, Baso % (Auto) 0.4, Absolute Neuts (auto) 1.3 L, Absolute Lymphs (auto) 1.18, Nucleated RBC % 0 09/06/21 07:23: Sodium 140, Potassium 4.2, Chloride 109 H, Carbon Dioxide 28.0, Anion Gap 3 L, BUN 9, Creatinine 0.65, Estim Creat Clear Calc 100.69, Est GFR (MDRD) Af Amer 123, Est GFR (MDRD) Non-Af 102, BUN/Creatinine Ratio 13.8, Glucose 83, Calcium 8.3 L, Total Bilirubin 0.80, AST 34, ALT 19, Alkaline Phosphatase 74, Total Protein 6.8, Albumin 2.8 L, Globulin 4.0, Albumin/Globulin Ratio 0.7 L, TSH 0.11 L Micro: Microbiology 09/05/21 14:40 Sputum, Expectorated/Coughed Gram Stain - Final 09/05/21 14:40 Sputum, Expectorated/Coughed Respiratory Culture - Preliminary Appears to be normal respiratory akash. Further studies to follow. 09/05/21 17:45 Mucosa - Throat Group A Streptococcus Rapid Screen - Preliminary 09/05/21 11:18 Urine, Clean Catch Legionella Antigen - Final 09/05/21 11:18 Urine, Clean Catch Streptococcus pneumoniae Antigen (M - Final 09/05/21 09:19 Mucosa - Nose Influenza Types A,B Direct FA (JULI) - Final 09/05/21 08:45 Nasal Secretion SARS-CoV-2 Antigen (Rapid) - Final SARS-CoV-2 (COVID 19) Radiography Diagnostic Testing: Radiology Impression Chest X-Ray 09/05/21 09:10 IMPRESSION: Borderline cardiomegaly. Minimal increased linear markings at the right lung base suggestive of mild degree of linear basilar atelectasis. Electronically Signed: Regulo Vega MD at 10:59 EST , Service support , Physical Exam Const alert, oriented x3 and no apparent distress General Appearance: cooperative HEENT normocephalic and moist oral mucous membranes Eyes PERRL, EOMs intact bilaterally and conjunctivae normal Neck supple and no JVD Resp normal respiratory effort, no retractions and no use of accessory muscles Auscultation: diminished lung sounds; Negative for crackles, rales, rhonchi or wheezes Cardio regular rate, regular rhythm, S1 normal heart sound, S2 normal heart sound and no murmurs GI soft to palpation, non-tender and non-distended; Negative for hepatosplenomegaly Extremity no clubbing, cyanosis or edema Skin no rashes or lesions noted Neuro no focal motor deficits and no sensory deficits noted Psych Appearance: appropriate Mood & Affect: flat affect Assessment & Plan Assessment/Plan (1) COVID-19: (2) Weakness: PLAN: 1. COVID-19/generalized weakness ? She is requiring 1 to 2 L nasal cannula now therefore will initiate treatment with remdesivir and continue with Decadron ? We will monitor for another 24 to 48 hours just to make sure that she does not get worse however symptom onset was about 6 days ago ? PT/OT evaluation for weakness associated to her COVID-19 ? Urine antigens are negative blood cultures are pending and respiratory culture is normal respiratory akash 2. Complex partial seizure, history of 2 strokes in 2017 first right MCA and second right occipital H[employer] D[employer]ING [employer] distribution with residual left-sided motor incoordination affecting left arm and leg and left visual field deficit. She saw neurologist Dr. Junior in October 2020 and as per note she was able to ambulate independently. Continue home home medications, Keppra 3. History of substance use in the past, cocaine and heroin, marijuana and history of alcohol use: 4. Coronary artery disease with ischemic cardiomyopathy, EF 45% 5. Graves' disease/hyperthyroidism: She follows Dr. 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 Currently on PTU. Home dose continued 6. Chronic mild systolic heart failure with possible history ofNon-STEMI : Last echo in May 2019 shows EF 45%, LA and RA mildly enlarged. Mild MR and mild AR. Mild segmental dysfunction. DVT: Eliquis Charges/Coding Visit Charges Inpatient E&M: 25064 Subs Hosp L2
[2021-09-06] MEDS: Atorvastatin Calcium 80 MG Tablet PO (22:25)
[2021-09-06] MEDS: 0.9% Saline Lock 10 ML Syringe IV (22:27)
[2021-09-07] VITALS (9 sets, daily range): BP systolic 115–129; BP diastolic 69–84; PULSE 53–80; RESP 18; TEMP 36.4–36.8; O2SAT 78–98
[2021-09-07] MEDS: 0.9% Saline Lock 10 ML Syringe IV ×3 (06:54→22:58)
[2021-09-07 07:00] LABS: Absolute Lymphocyte Count 0.77 X10^3/uL (0.83-4.51); Absolute Neutrophil Count 1.7 X10^3/uL (2.0-7.7); Basophil# 0.02 X10^3/uL; Basophil% 0.7 % (0-1); Hematocrit 38.3 % (37-47); Hemoglobin 12.5 g/dL (12.0-15.0); Lymphocyte # 0.77 X10^3/ul (0.83-4.51); Lymphocyte % 28.4 % (19-41); Mean Corp Hgb Conc 32.6 g/dL (32-36); Mean Corpuscular Hgb 25.8 pg (27.0-32.0); Mean Platelet Vol. 11.6 fl (6.2-12.0); Monocyte# 0.24 X10^3/uL; Monocyte% 8.9 % (0-10); NRBC Flagged by Analyzer 0 % (0-5); Neutrophil # 1.67 X10^3/uL (2.7-7.7); Neutrophil % 61.6 % (47-70); POSITIVE MORPHOLOGY YES; Platelet Count 170 K/mm3 (150-450); RBC Distribution Width CV 14.1 % (11.6-14.6); RBC Distribution Width SD 40.6 fl (35.1-43.9); Red Blood Count 4.85 M/mm3 (4.2-5.4); White Blood Count 2.7 K/mm3 (4.4-11.0)
[2021-09-07 07:04] LABS: Differential Indicated SCAN CRITERIA MET
[2021-09-07 07:22] LABS: Differential Comment SCANNED; Ovalocyte RARE
[2021-09-07 07:28] LABS: ALB/GLOB Ratio 0.6 RATIO (0.9-2.4); AST(SGOT) 29 U/L (15-37); Alanine Aminotransfer ALT/SGPT 22 U/L (13-56); Albumin, Serum 2.5 g/dL (3.2-5.0); Alkaline Phosphatase 71 U/L (45-117); Anion Gap 6 (5-15); BUN 11 mg/dL (7-18); BUN/Creat Ratio 20.1 RATIO (10-20); Calcium,Total 8.6 mg/dL (8.5-10.1); Chloride 107 mmol/L (98-107); Creatinine, Serum 0.55 mg/dL (0.55-1.02); EST Glomerular Filtration Rate 125 mL/min (>60); Est Glom Filt Rate - Afr Amer 151 mL/min (>60); Globulin 4.4 g/dL (2.2-4.2); Glucose 115 mg/dL (74-106); Potassium 4.3 mmol/L (3.5-5.1); Protein, Total 6.9 g/dL (6.4-8.2); Sodium Level 136 mmol/L (136-145)
--- NOTE | 2021-09-07 10:05 | PCM.PN.HOSP ---
Subjective Subjective Doing well, no issues overnight. She is maintaining her oxygen saturations on 1 to 2 L nasal cannula. Objective Data Objective Data Vital Signs: Vital Signs Temp Pulse Resp BP Pulse Ox 97.6 F L 60 18 122/83 H 92 09/07/21 06:41 09/07/21 06:41 09/07/21 06:41 09/07/21 06:41 09/07/21 06:43 Oxygen Flow Rate (L/min) [ 5 AMBULATING with Oxygen #3] Oxygen Flow Rate (L/min) [At 4 REST with Oxygen] Oxygen Flow Rate (L/min) [ 3 AMBULATING with Oxygen #2] Oxygen Flow Rate (L/min) [ 2 AMBULATING with Oxygen #1] Oxygen Flow Rate (L/min) 2 Oxygen Delivery Method Nasal Cannula Weight: 216 lb 11.43 oz Body Mass Index (BMI) 33.8 Intake & Output: Intake and Output for Last 24 Hours 09/06/21 09/07/21 09/08/21 03:59 03:59 03:59 Intake Total 1350 / 1350 1636.25 / 1636.25 Output Total 100 / 100 Balance 1350 / 1350 1536.25 / 1536.25 Lab / Micro Data Result Diagrams: 09/07/21 06:30 09/07/21 06:30 Labs: Laboratory Results - last 24 hr 09/07/21 06:30: WBC 2.7 L, RBC 4.85, Hgb 12.5, Hct 38.3, MCV 79.0 L D, MCH 25.8 L, MCHC 32.6, RDW Std Deviation 40.6, RDW Coeff of Suzette 14.1, Plt Count 170, MPV 11.6, Immature Gran % (Auto) 0.400, Neut % (Auto) 61.6, Lymph % (Auto) 28.4, [place] % (Auto) 8.9, Eos % (Auto) 0.0, Baso % (Auto) 0.7, Absolute Neuts (auto) 1.7 L, Absolute Lymphs (auto) 0.77 L, Nucleated RBC % 0, Differential Comment SCANNED, Ovalocytes RARE 09/07/21 06:30: Sodium 136, Potassium 4.3, Chloride 107, Carbon Dioxide 23.0, Anion Gap 6, BUN 11, Creatinine 0.55, Estim Creat Clear Calc 119.00, Est GFR (MDRD) Af Amer 151, Est GFR (MDRD) Non-Af 125, BUN/Creatinine Ratio 20.1 H, Glucose 115 H, Calcium 8.6, Total Bilirubin 0.50, AST 29, ALT 22, Alkaline Phosphatase 71, Total Protein 6.9, Albumin 2.5 L, Globulin 4.4 H, Albumin/Globulin Ratio 0.6 L Micro: Microbiology 09/05/21 14:40 Sputum, Expectorated/Coughed Gram Stain - Final 09/05/21 14:40 Sputum, Expectorated/Coughed Respiratory Culture - Preliminary Appears to be normal respiratory akash. Further studies to follow. 09/05/21 17:45 Mucosa - Throat Group A Streptococcus Rapid Screen - Preliminary 09/05/21 11:18 Urine, Clean Catch Legionella Antigen - Final 09/05/21 11:18 Urine, Clean Catch Streptococcus pneumoniae Antigen (M - Final 09/05/21 09:19 Mucosa - Nose Influenza Types A,B Direct FA (JULI) - Final 09/05/21 08:45 Nasal Secretion SARS-CoV-2 Antigen (Rapid) - Final SARS-CoV-2 (COVID 19) Physical Exam Narrative Const alert, oriented x3 and no apparent distress General Appearance: cooperative HEENT normocephalic and moist oral mucous membranes Eyes PERRL, EOMs intact bilaterally and conjunctivae normal Neck supple and no JVD Resp normal respiratory effort, no retractions and no use of accessory muscles Auscultation: diminished lung sounds; Negative for crackles, rales, rhonchi or wheezes Cardio regular rate, regular rhythm, S1 normal heart sound, S2 normal heart sound and no murmurs GI soft to palpation, non-tender and non-distended; Negative for hepatosplenomegaly Extremity no clubbing, cyanosis or edema Skin no rashes or lesions noted Neuro no focal motor deficits and no sensory deficits noted Psych Appearance: appropriate Mood & Affect: flat affect Assessment & Plan Assessment/Plan (1) COVID-19: (2) Weakness: PLAN: 1. COVID-19/generalized weakness ? She is requiring 1 to 2 L nasal cannula now therefore will initiate treatment with remdesivir and continue with Decadron ? We will monitor for another 24 to 48 hours just to make sure that she does not get worse however symptom onset was about 6 days ago ? PT/OT evaluation for weakness associated to her COVID-19 ? Urine antigens are negative, blood cultures are pending and respiratory culture is normal respiratory akash 2. Complex partial seizure, history of 2 strokes in 2017 first right MCA and second right occipital [employer]OR [employer] distribution with residual left-sided motor incoordination affecting left arm and leg and left visual field deficit. She saw neurologist Dr. Junior in October 2020 and as per note she was able to ambulate independently. Continue home home medications, Keppra 3. History of substance use in the past, cocaine and heroin, marijuana and history of alcohol use: 4. Coronary artery disease with ischemic cardiomyopathy, EF 45% 5. Graves' disease/hyperthyroidism: She follows Dr. 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 Currently on PTU. Home dose continued 6. Chronic mild systolic heart failure with possible history ofNon-STEMI : Last echo in May 2019 shows EF 45%, LA and RA mildly enlarged. Mild MR and mild AR. Mild segmental dysfunction. DVT: Eliquis Charges/Coding Visit Charges Inpatient E&M: 56088 Subs Hosp L2
[2021-09-07] MEDS: Carvedilol 12.5 MG Tablet PO (10:35)
[2021-09-07] MEDS: Ferrous Sulfate 325 MG Tablet PO (10:35)
[2021-09-07] MEDS: Lactulose 20 GM/30 ML UDC 10 GM PO ×2 (10:35→22:58)
[2021-09-07] MEDS: dexAMETHasone 10 MG/ML Vial 6 MG IV (10:35)
[2021-09-07] MEDS: levETIRAcetam 750 MG Tablet PO ×2 (10:36→22:58)
[2021-09-07] MEDS: APIXABAN 5 MG TABLET PO ×2 (10:36→22:58)
[2021-09-07] MEDS: guaiFENesin/D-Methorphan TAB.SR.12H 1 TABLET PO ×2 (10:37→22:58)
[2021-09-07] MEDS: Atorvastatin Calcium 80 MG Tablet PO (22:58)
[2021-09-08] VITALS (10 sets, daily range): BP systolic 119–132; BP diastolic 78–91; PULSE 49–62; RESP 16–20; TEMP 35.7–36.7; O2SAT 88–100
[2021-09-08] MEDS: Acetaminophen 325 MG Tablet 650 MG PO (06:47)
[2021-09-08 07:20] LABS: Hematocrit 43.5 % (37-47); Hemoglobin 13.9 g/dL (12.0-15.0); Mean Corpuscular Hgb 26.3 pg (27.0-32.0); Mean Corpuscular Volume 82.2 fL (81-99); Mean Platelet Vol. 10.5 fl (6.2-12.0); Platelet Count 323 K/mm3 (150-450); RBC Distribution Width SD 42.3 fl (35.1-43.9); Red Blood Count 5.29 M/mm3 (4.2-5.4)
--- NOTE | 2021-09-08 09:25 | PCM.DC ---
Discharge Instructions Diet Discharge Diet: Low fat / Low cholesterol Activity Discharge Activity: Return to Normal Activity Dressing / Incision Call your doctor if you observe: Fever of 101 or Higher, Shortness of breath, Dizziness, Fainting spells, Swelling in the ankles, Chest pain and Increased palpitations (irregular heartbeat) Follow Up Care Test Results: Test results from this visit will be discussed in further detail at your follow-up appointment, if applicable. Discharge Plan Admission Admit Date/Time: 09/05/21 11:13 Attending Provider: Shane Bernard Primary Care Provider: Cheko Colbert Discharge Orders/Prescriptions Prescriptions: New dexamethasone 2 mg tablet 6 mg PO DAILY 6 Days Qty: 18 RF: 0 Continued acetaminophen [Tylenol Extra Strength] 500 mg tablet 500 mg PO Q6H PRN (Reason: pain/fever) RF: 0 levetiracetam 750 mg tablet 750 mg PO BID Qty: 60 RF: 6 ferrous sulfate 325 MG tablet 325 mg PO DAILY@0800 Qty: 30 RF: 0 apixaban 5 MG tablet 5 mg PO BID RF: 0 carvedilol 12.5 MG tablet 12.5 mg PO BID RF: 0 meclizine 25 MG tablet 25 mg PO 4X/DAY PRN PRN (Reason: Dizziness) Qty: 20 RF: 0 phenol 20 ML aerosol,spray 1 spray MM TID Qty: 1 RF: 0 acetaminophen [8 Hour Pain Reliever] 650 mg tablet extended release 650 mg PO Q8H PRN (Reason: pain) Qty: 20 RF: 0 propylthiouracil 50 mg tablet 100 mg PO MOWEFR RF: 0 propylthiouracil 50 mg tablet 50 mg PO SUTUTHSA RF: 0 atorvastatin 80 mg tablet 80 mg PO QHS Qty: 30 RF: 11 lactulose 10 gram/15 mL solution 15 ml PO BID Qty: 946 RF: 3 Referrals / Follow Up: Cheko Colbert MD [Primary Care Provider] - Within 1 Week Disposition Disposition (needs filled in before D/C Order can be placed): Home, Self Care
[2021-09-08] MEDS: Lactulose 20 GM/30 ML UDC 10 GM PO ×2 (10:21→19:50)
[2021-09-08] MEDS: Ferrous Sulfate 325 MG Tablet PO (10:21)
[2021-09-08] MEDS: Carvedilol 12.5 MG Tablet PO ×2 (10:22→19:50)
[2021-09-08] MEDS: dexAMETHasone 10 MG/ML Vial 6 MG IV (10:22)
[2021-09-08] MEDS: levETIRAcetam 750 MG Tablet PO ×2 (10:23→19:51)
[2021-09-08] MEDS: APIXABAN 5 MG TABLET PO ×2 (10:23→19:50)
[2021-09-08] MEDS: guaiFENesin/D-Methorphan TAB.SR.12H 1 TABLET PO ×2 (10:24→19:51)
--- NOTE | 2021-09-08 10:34 | PCM.DC.SUM ---
Providers Date of Admission: 09/05/21 Primary Care Physician: Dr. Cheko Colbert MD Reason For Visit: COVID 19 Diagnosis Discharge Diagnosis (1) COVID-19: Status: Acute Code(s): U07.1 - COVID-19 (2) Weakness: Status: Acute Code(s): R53.1 - Weakness Medications at Discharge Home Medications ferrous sulfate 325 mg PO DAILY@0800 #30 tab 02/11/17 atorvastatin 80 mg tablet 80 mg PO QHS #30 tab 11/11/17 apixaban 5 mg PO BID 04/16/19 carvedilol 12.5 mg PO BID 08/20/19 meclizine 25 mg PO 4X/DAY PRN PRN #20 tab 10/28/20 acetaminophen 500 mg tablet 500 mg PO Q6H PRN tab 11/01/20 phenol 1 spray MM TID #1 bottle 11/23/20 acetaminophen [8 Hour Pain Reliever] 650 mg PO Q8H PRN #20 tab 07/03/21 levetiracetam 750 mg tablet 750 mg PO BID #60 tab 07/18/21 lactulose 10 gram/15 mL oral solution 15 ml PO BID #946 ml 07/24/21 propylthiouracil 50 mg PO SUTUTHSA 09/05/21 propylthiouracil 100 mg PO MOWEFR 09/05/21 dexamethasone 6 mg PO DAILY 6 Days #18 tab 09/08/21 Hospital Course Operations None Procedures None Summary of Care Provided Minutes Spent on Discharge: 37 Hospital Course: Per HPI: OMER NÚÑEZ, is a 51 F with multiple comorbidities as listed below came to ED for symptoms of cough, chest pain, shortness of breath on exertion, generalized weakness, loss of appetite, sinus congestion. She is not a good historian and is not forthcoming or does not remember the chronology of the events. She is not able to get up from the bed or chair. She is not able to walk but she was ambulating before. She has shortness of breath progressively worsening since past Thursday mainly on exertion. Complain of intermittent sharp chest pain midsternal in location, localized without radiation mainly on cough. High-sensitivity troponin negative. She has history of multiple comorbidities which include seizure last episode 5 years ago, stroke, memory loss/deficit with left-sided weakness and tension headache. She is very slow to respond probably due to amnesia. In ED, twelve-lead EKG shows A. fib 93 bpm, QTC 445 ms. She has history of chronic A. fib and is on Eliquis she took last dose in the morning today. Vitals reviewed, T-max 99 Fahrenheit. Pulse ox 86% on room air, 99% on 2 L of oxygen. Chest x-ray right lung base linear Missile atelectasis, independently reviewed. Hospital Course: 1. Acute hypoxic respiratory failure secondary to COVID-19 pneumonia with generalized weakness?51-year-old female presented to the hospital after 5 days of symptoms and shortness of breath. She tested positive for COVID and was started on 2 L nasal cannula. She is requiring 2 L nasal cannula at rest and with ambulation will go home with this. She was started on remdesivir and Decadron. She received 3 total doses of remdesivir and will complete 10 days of Decadron. I discussed with her the possibility for discharge today and she expressed understanding of the risk and benefits of going home and she feels that she is strong up to go home. We will plan to discharge her with home O2 and she will need to follow-up with her PCP in 3 to 5 days. Continue to encourage vaccination when able. 2. Coronary artery disease, ischemic cardiomyopathy, A. fib, Graves' disease, history of complex partial seizures are all chronic medical conditions which complicate her care. Her pins were continued where appropriate. Physical Exam Narrative Const alert, oriented x3 and no apparent distress General Appearance: cooperative HEENT normocephalic and moist oral mucous membranes Eyes PERRL, EOMs intact bilaterally and conjunctivae normal Neck supple and no JVD Resp normal respiratory effort, no retractions and no use of accessory muscles Auscultation: diminished lung sounds; Negative for crackles, rales, rhonchi or wheezes Cardio regular rate, regular rhythm, S1 normal heart sound, S2 normal heart sound and no murmurs GI soft to palpation, non-tender and non-distended; Negative for hepatosplenomegaly Extremity no clubbing, cyanosis or edema Skin no rashes or lesions noted Neuro no focal motor deficits and no sensory deficits noted Psych Appearance: appropriate Mood & Affect: flat affect Weight / BMI Weight Weight: 214 lb 8.156 oz Body Mass Index (BMI) 33.8 ABG / Lab / Microbiology Data Result Diagrams: 09/08/21 07:00 09/07/21 06:30 Laboratory: Laboratory Results - last 24 hr 09/08/21 07:00: WBC 8.0, RBC 5.29, Hgb 13.9, Hct 43.5, MCV 82.2, MCH 26.3 L, MCHC 32.0, RDW Std Deviation 42.3, RDW Coeff of Suzette 14.0, Plt Count 323, MPV 10.5 Microbiology: Microbiology 09/05/21 17:45 Mucosa - Throat Group A Streptococcus Rapid Screen - Final 09/05/21 14:40 Sputum, Expectorated/Coughed Gram Stain - Final 09/05/21 14:40 Sputum, Expectorated/Coughed Respiratory Culture - Final 09/05/21 10:02 Blood Culture (Wb) - Left Hand Blood Culture - Preliminary No growth in 48 hours. 09/05/21 11:18 Urine, Clean Catch Legionella Antigen - Final 09/05/21 11:18 Urine, Clean Catch Streptococcus pneumoniae Antigen (M - Final 09/05/21 09:19 Mucosa - Nose Influenza Types A,B Direct FA (JULI) - Final 09/05/21 08:45 Nasal Secretion SARS-CoV-2 Antigen (Rapid) - Final SARS-CoV-2 (COVID 19) D/C Instructions Discharge Diet: Low fat / Low cholesterol Call your doctor if you observe: Fever of 101 or Higher, Shortness of breath, Dizziness, Fainting spells, Swelling in the ankles, Chest pain and Increased palpitations (irregular heartbeat) Meaningful Use Info Meaningful Use Diagnoses (Choose all that apply): None applicable Discharge Plan Admission Admit Date/Time: 09/05/21 11:13 Attending Provider: Shane Bernard Primary Care Provider: Cheko Colbert Discharge Orders/Prescriptions Prescriptions: New dexamethasone 2 mg tablet 6 mg PO DAILY 6 Days Qty: 18 RF: 0 Continued acetaminophen [Tylenol Extra Strength] 500 mg tablet 500 mg PO Q6H PRN (Reason: pain/fever) RF: 0 levetiracetam 750 mg tablet 750 mg PO BID Qty: 60 RF: 6 ferrous sulfate 325 MG tablet 325 mg PO DAILY@0800 Qty: 30 RF: 0 apixaban 5 MG tablet 5 mg PO BID RF: 0 carvedilol 12.5 MG tablet 12.5 mg PO BID RF: 0 meclizine 25 MG tablet 25 mg PO 4X/DAY PRN PRN (Reason: Dizziness) Qty: 20 RF: 0 phenol 20 ML aerosol,spray 1 spray MM TID Qty: 1 RF: 0 acetaminophen [8 Hour Pain Reliever] 650 mg tablet extended release 650 mg PO Q8H PRN (Reason: pain) Qty: 20 RF: 0 propylthiouracil 50 mg tablet 100 mg PO MOWEFR RF: 0 propylthiouracil 50 mg tablet 50 mg PO SUTUTHSA RF: 0 atorvastatin 80 mg tablet 80 mg PO QHS Qty: 30 RF: 11 lactulose 10 gram/15 mL solution 15 ml PO BID Qty: 946 RF: 3 Referrals / Follow Up: Cheko Colbert MD [Primary Care Provider] - Within 1 Week Disposition Disposition (needs filled in before D/C Order can be placed): Home, Self Care Charges/Coding Visit Charges Inpatient E&M: 61815 Disch Hosp
--- NOTE | 2021-09-08 14:25 | NURSING ---
Received call from Willis at [facility] who is unable to deliver home concentrator at this time d/t inclement weather. Call placed to net application architect MACK Gallardo and daja left. Awaiting return call from at this time.
--- NOTE | 2021-09-08 16:00 | CASEMGMT ---
RNCM DC Progress Note: Received call by primary nurse needing to know [employer] Network [employer] companies for Home Oxygen. Per patient primary Insurance Grazyna Mcr- [employer] Network [employer]: [facility]. Akanksha Christie RNCM
--- NOTE | 2021-09-08 16:05 | PN.HOSP_ITS ---
Subjective Subjective Doing well, and would like to be discharged today however this was prevented secondary to the oxygen delivery company being unable to deliver oxygen to her home today because the semi driver for the oxygen company was stuck in his driveway all day. Objective Data Objective Data Vital Signs: Vital Signs Temp Pulse Resp BP Pulse Ox 98.0 F 61 16 127/81 H 98 09/08/21 13:33 09/08/21 13:33 09/08/21 13:33 09/08/21 13:33 09/08/21 15:30 Oxygen Flow Rate (L/min) [ 5 AMBULATING with Oxygen #3] Oxygen Flow Rate (L/min) [At 4 REST with Oxygen] Oxygen Flow Rate (L/min) [ 3 AMBULATING with Oxygen #2] Oxygen Flow Rate (L/min) [ 2 AMBULATING with Oxygen #1] Oxygen Flow Rate (L/min) 2 Oxygen Delivery Method Nasal Cannula Weight: 214 lb 8.156 oz Body Mass Index (BMI) 33.8 Intake & Output: Intake and Output for Last 24 Hours 09/07/21 09/08/21 09/09/21 03:59 03:59 03:59 Intake Total 1636.25 / 1636.25 250 / 250 250 / 250 Output Total 100 / 100 700 / 700 Balance 1536.25 / 1536.25 -450 / -450 250 / 250 Lab / Micro Data Result Diagrams: 09/08/21 07:00 09/07/21 06:30 Labs: Laboratory Results - last 24 hr 09/08/21 07:00: WBC 8.0, RBC 5.29, Hgb 13.9, Hct 43.5, MCV 82.2, MCH 26.3 L, MCHC 32.0, RDW Std Deviation 42.3, RDW Coeff of Suzette 14.0, Plt Count 323, MPV 10.5 Micro: Microbiology 09/05/21 17:45 Mucosa - Throat Group A Streptococcus Rapid Screen - Final 09/05/21 14:40 Sputum, Expectorated/Coughed Gram Stain - Final 09/05/21 14:40 Sputum, Expectorated/Coughed Respiratory Culture - Final 09/05/21 10:02 Blood Culture (Wb) - Left Hand Blood Culture - Preliminary No growth in 48 hours. 09/05/21 11:18 Urine, Clean Catch Legionella Antigen - Final 09/05/21 11:18 Urine, Clean Catch Streptococcus pneumoniae Antigen (M - Final 09/05/21 09:19 Mucosa - Nose Influenza Types A,B Direct FA (JULI) - Final 09/05/21 08:45 Nasal Secretion SARS-CoV-2 Antigen (Rapid) - Final SARS-CoV-2 (COVID 19) Physical Exam Narrative Const alert, oriented x3 and no apparent distress General Appearance: cooperative HEENT normocephalic and moist oral mucous membranes Eyes PERRL, EOMs intact bilaterally and conjunctivae normal Neck supple and no JVD Resp normal respiratory effort, no retractions and no use of accessory muscles Auscultation: diminished lung sounds; Negative for crackles, rales, rhonchi or wheezes Cardio regular rate, regular rhythm, S1 normal heart sound, S2 normal heart sound and no murmurs GI soft to palpation, non-tender and non-distended; Negative for hepatosplenomegaly Extremity no clubbing, cyanosis or edema Skin no rashes or lesions noted Neuro no focal motor deficits and no sensory deficits noted Psych Appearance: appropriate Mood & Affect: flat affect Assessment & Plan Assessment/Plan (1) COVID-19: (2) Weakness: PLAN: 1. COVID-19/generalized weakness ? She is requiring 1 to 2 L nasal cannula now therefore will initiate treatment with remdesivir and continue with Decadron ? We will hopefully be able to discharge in the morning if they are able to deliver oxygen ? PT/OT evaluation for weakness associated to her COVID-19 ? Urine antigens are negative, blood cultures are pending and respiratory culture is normal respiratory akash 2. 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 She saw neurologist Dr. Junior in October 2020 and as per note she was able to ambulate independently. Continue home home medications, Keppra 3. History of substance use in the past, cocaine and heroin, marijuana and history of alcohol use: 4. Coronary artery disease with ischemic cardiomyopathy, EF 45% 5. Graves' disease/hyperthyroidism: She follows Dr. 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 Currently on PTU. Home dose continued 6. Chronic mild systolic heart failure with possible history ofNon-STEMI : Last echo in May 2019 shows EF 45%, LA and RA mildly enlarged. Mild MR and mild AR. Mild segmental dysfunction. DVT: Eliquis Charges/Coding Visit Charges Inpatient E&M: 07761 Subs Hosp L2
--- NOTE | 2021-09-08 16:30 | NURSING ---
Per patient, her son had to go to work and is not available until after 10pm for a ride home. With the oxygen delivery complications and a very late discharge, Dr. Bernard aware and will keep patient until tomorrow.
[2021-09-08] MEDS: Atorvastatin Calcium 80 MG Tablet PO (19:51)
[2021-09-09 02:00] VITALS: BP 115/76; PULSE 45; RESP 18; TEMP 35.3; O2SAT 93
[2021-09-09 05:58] LABS: Hematocrit 41.5 % (37-47); Hemoglobin 12.9 g/dL (12.0-15.0); Mean Corp Hgb Conc 31.1 g/dL (32-36); Mean Corpuscular Hgb 25.7 pg (27.0-32.0); Mean Corpuscular Volume 82.7 fL (81-99); Mean Platelet Vol. 10.2 fl (6.2-12.0); Platelet Count 362 K/mm3 (150-450); RBC Distribution Width CV 13.9 % (11.6-14.6); RBC Distribution Width SD 41.6 fl (35.1-43.9); Red Blood Count 5.02 M/mm3 (4.2-5.4); White Blood Count 7.8 K/mm3 (4.4-11.0)
[2021-09-09 06:40] LABS: ALB/GLOB Ratio 0.7 RATIO (0.9-2.4); AST(SGOT) 23 U/L (15-37); Alanine Aminotransfer ALT/SGPT 22 U/L (13-56); Albumin, Serum 2.9 g/dL (3.2-5.0); Alkaline Phosphatase 68 U/L (45-117); Anion Gap 6 (5-15); BUN 15 mg/dL (7-18); BUN/Creat Ratio 22.6 RATIO (10-20); Calcium,Total 8.7 mg/dL (8.5-10.1); Chloride 105 mmol/L (98-107); Creatinine, Serum 0.66 mg/dL (0.55-1.02); EST Glomerular Filtration Rate 100 mL/min (>60); Est Glom Filt Rate - Afr Amer 121 mL/min (>60); Estimated Creatinine Clearance 99.17 ml/min; Glucose 114 mg/dL (74-106); Potassium 3.9 mmol/L (3.5-5.1); Protein, Total 6.9 g/dL (6.4-8.2); Sodium Level 139 mmol/L (136-145)
[2021-09-09 09:41] VITALS: BP 99/65; PULSE 64; RESP 18; TEMP 36.6; O2SAT 98
[2021-09-09] MEDS: Lactulose 20 GM/30 ML UDC 10 GM PO (09:47)
[2021-09-09] MEDS: 0.9% Saline Lock 10 ML Syringe IV (09:47)
[2021-09-09] MEDS: dexAMETHasone 10 MG/ML Vial 6 MG IV (09:47)
[2021-09-09] MEDS: Ferrous Sulfate 325 MG Tablet PO (09:49)
[2021-09-09] MEDS: levETIRAcetam 750 MG Tablet PO (09:49)
[2021-09-09] MEDS: guaiFENesin/D-Methorphan TAB.SR.12H 1 TABLET PO (09:49)
[2021-09-09] MEDS: APIXABAN 5 MG TABLET PO (09:50)
--- NOTE | 2021-09-09 11:35 | CASEMGMT ---
Pt qualifies for home O2, referral faxed to [facility] [place]. Email to [place] to make aware of referral and portable tank taken from stock.
[2021-09-09 11:55] VITALS: BP 119/90; PULSE 64; RESP 19; TEMP 36.6; O2SAT 99
== END 2021-09-09 12:35 | disposition home or self-care (01) | DRG 177 ==
LOC: ED 11:24 → MS3 11:33
PROVIDERS: Family Medicine; Admitting Provider Internal Medicine; Emergency Provider Emergency Medicine; PCP Family Medicine; Visit Provider Internal Medicine
DX: U07.1 COVID-19 (principal); J96.01 Acute respiratory failure with hypoxia; G40.209 Localization-related (focal) (partial) symptomatic epilepsy and epileptic syndromes with complex partial seizures, not intractable, without status epilepticus; I48.20 Chronic atrial fibrillation, unspecified; I69.354 Hemiplegia and hemiparesis following cerebral infarction affecting left non-dominant side; I50.22 Chronic systolic (congestive) heart failure; D50.9 Iron deficiency anemia, unspecified; F17.210 Nicotine dependence, cigarettes, uncomplicated; E05.00 Thyrotoxicosis with diffuse goiter without thyrotoxic crisis or storm; I25.10 Atherosclerotic heart disease of native coronary artery without angina pectoris; H53.40 Unspecified visual field defects; I25.5 Ischemic cardiomyopathy; I69.398 Other sequelae of cerebral infarction; I25.2 Old myocardial infarction; Z79.01 Long term (current) use of anticoagulants; Z79.899 Other long term (current) drug therapy; Z86.718 Personal history of other venous thrombosis and embolism
CPT/HCPCS: 36415; 71045; 80048; 80053; 81001; 82550; 83605; 83615; 83735; 83880; 84100; 84145; 84443; 84484; 85025; 85027; 85379; 85384; 86140; 87040; 87070; 87205; 87426; 87449; 87804; 87880; 93005; 94667; 94762; 97162; 97166; 97530; 97535; 97802; 99251; 99285; 99406; J7030; J7050; A4216; G0463; J0248

== ENCOUNTER 2021-09-17 22:07 | Emergency (ER) | payer MEDICARE, MEDICAID, SELFPAY ==
[2021-09-17 22:07] VITALS: BP 147/88; PULSE 60; RESP 18; TEMP 37.4; O2SAT 100
[2021-09-17 22:08] VITALS: BP 147/88; PULSE 68; RESP 18; TEMP 37.4; O2SAT 100; BMI 37.2
[2021-09-17 22:11] VITALS: O2SAT 100
--- NOTE | 2021-09-17 22:18 | EKG12_ITS ---
Test Reason : SOB Blood Pressure : / mmHG Vent. Rate : 101 BPM Atrial Rate : 090 BPM P-R Int : 000 ms QRS Dur : 082 ms QT Int : 350 ms P-R-T Axes : 000 069 055 degrees QTc Int : 453 ms Atrial fibrillation with premature ventricular or aberrantly conducted complexes Low voltage QRS Abnormal ECG Confirmed by ONEAL VICTOR, TONIA ([id number]), food expeditor ADIN JOHNSON ([id number]) on 09/19/2021 11:02:37 AM Referred By: MAURICE Confirmed By:MORIAH NO MD
--- NOTE | 2021-09-17 22:19 | EDS_ITS ---
HPI History of Present Illness Chief Complaint: Shortness of Breath Informant: patient Onset/Context/Timing Onset: Today and Hours Context: gradual Timing: Continuous Quality: Negative for Dyspnea on exertion, Orthopnea, PND and Wheezing Current Severity: Mild Maximum Severity: Mild Worsened by: Nothing Relieved by: Nothing Associated Symptoms Chest Pain: Positive for None Narrative Narrative: 51-year-old female extensive past medical history of A. fib, cardiomyopathy, prior stroke on Eliquis with an EF of 45% with her last echo 2 years ago. Wears home O2 at 2 L. Was recently hospitalized and discharged for COVID-19. States tonight she was at home smoke marijuana and after she was done with that felt short of breath. Denies chest pain. No fever. No cough. No melena. She denies any fever. No history of DVT or PE and again she is on a blood thinner. PE Risk Factors: Positive for Recent immobilization; Negative for Cancer, OCP + Smoking + > 35, Prior DVT or PE, Recent surgery and Recent travel Prior similar symptoms: Yes Recent Illness/Hospitalization: Yes PFSH [facility] Medical History Chronic a-fib History of stroke with residual effects History of traumatic head injury Hyperlipidemia, mixed Hyperthyroidism Iron deficiency anemia Left-sided weakness Marijuana smoker Memory deficits Memory loss Stroke due to embolism Tension headache Home Medications ferrous sulfate 325 mg PO DAILY@0800 #30 tab 02/11/17 [Rx Last Taken 05/23/19] atorvastatin 80 mg tablet 80 mg PO QHS #30 tab 11/11/17 [Rx Last Taken 05/22/19] apixaban 5 mg PO BID 04/16/19 [History Last Taken 05/23/19] carvedilol 12.5 mg PO BID 08/20/19 [History Last Taken Unknown] meclizine 25 mg PO 4X/DAY PRN PRN #20 tab 10/28/20 [Rx Last Taken Unknown] acetaminophen 500 mg tablet 500 mg PO Q6H PRN tab 11/01/20 [History Last Taken Unknown] phenol 1 spray MM TID #1 bottle 11/23/20 [Rx Last Taken Unknown] acetaminophen [8 Hour Pain Reliever] 650 mg PO Q8H PRN #20 tab 07/03/21 [Rx Last Taken Unknown] levetiracetam 750 mg tablet 750 mg PO BID #60 tab 07/18/21 [Rx Last Taken Unknown] lactulose 10 gram/15 mL oral solution 15 ml PO BID #946 ml 07/24/21 [Rx Last Taken Unknown] propylthiouracil 50 mg PO SUTUTHSA 09/05/21 [History Last Taken Unknown] propylthiouracil 100 mg PO MOWEFR 09/05/21 [History Last Taken Unknown] dexamethasone 6 mg PO DAILY 6 Days #18 tab 09/08/21 [Rx Last Taken Unknown] Allergy/AdvReac Type Severity Reaction Status Date / Time No Known Allergies Allergy Verified 09/05/21 08:48 Family History Sister Diabetes Grandmother CVA (cerebral vascular accident) Social History Smoking Status: Current every day smoker tobacco type: cigarettes Tobacco: How many years used: 10 Electronic Cigarette Use: not used second hand exposure: No alcohol intake: former substance use type: marijuana ROS ROS ED ROS Narrative Denies. Review of Systems ROS Unobtainable: Denies due to encephalopathy Constitutional Constitutional ED: Denies chills or fever(s) Eyes Eyes: Denies change in vision ENT ENT ED: Denies ear pain Cardiovascular Cardiovascular: Denies chest pain Respiratory/Chest Respiratory/Chest: Reports dyspnea; Denies cough, dyspnea on exertion or sputum Gastrointestinal Gastrointestinal: Reports diarrhea; Denies abdominal pain, constipation, melena, nausea or vomiting Genitourinary Genitourinary ED: Denies dysuria Musculoskeletal Musculoskeletal: Denies myalgias Integumentary Denies rash Neurologic Neurologic: Denies headache(s) Psychiatric Psychiatric: Denies depression Endocrine Endocrinology: Denies polyuria Hematologic/Lymphatic Hematologic/Lymphatic: Denies easy bruising Allergic/Immunologic Allergic/Immunologic ED: Denies urticaria EXAM Physical Exam Narrative Exam Narrative: 51-year-old no acute distress. Vital signs stable and afebrile. Temperature nine 9.4. Pulse ox 100% on 2 L she wears O2 she normally wears 1 to 2 L at home. She is in no distress. H EENT exam unremarkable. Moist mucous membranes. Neck nontender. No JVD. Lungs clear to auscultation bilaterally. Heart is irregularly irregular consistent with her history of A. fib rate about 90. No murmur. Abdomen soft nontender obese. No peritoneal signs. Other medical patient moving all 4 extremities. Calves are nontender without edema or cords. Neurologically she is awake alert. Answers questions and follows commands. Has chronic speech difficulty from prior stroke. 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 She has dorsi and plantar flexion bilaterally. Const Vital Signs: 09/17/21 22:07 09/17/21 22:08 09/17/21 22:11 Temperature 99.4 F H 99.4 F H Temperature Source Temporal Temporal Pulse Rate 60 68 Respiratory Rate 18 18 Respiratory Effort Normal Blood Pressure 147/88 H 147/88 H Blood Pressure Mean 107 107 Pulse Ox 100 100 Oxygen Delivery Method Nasal Cannula Nasal Cannula Nasal Cannula Oxygen Flow Rate (L/min) 2 2 2 09/17/21 22:23 Temperature Temperature Source Pulse Rate Respiratory Rate Respiratory Effort Blood Pressure Blood Pressure Mean Pulse Ox 100 Oxygen Delivery Method Nasal Cannula Oxygen Flow Rate (L/min) 2 Positive well nourished, well developed and obese; Negative for cachectic, contractures or unkempt General Appearance ED: well developed and NAD; Negative for unkempt, cachectic, contractures or pallor Nutritional Appearance: obese; Negative for cachectic HEENT Reports moist mucous membranes atraumatic Eyes PERRL and EOMs intact bilaterally Neck no lymphadenopathy, supple, no meningeal signs and no JVD General: Negative for tenderness Resp normal respiratory effort and clear to auscultation bilaterally Auscultation: Negative for rales, rhonchi or wheezes Cardio regular rate, S1 normal heart sound, S2 normal heart sound and no murmurs; Negative for regular rhythm Cardio Narrative: A. fib rate about 90. Rate: Negative for bradycardia or tachycardic GI non-tender, non-distended and no masses Auscultation: normoactive bowel sounds Palpation: soft; Negative for tender, guarding or rebound tenderness present Back/Spine no CVA tenderness and normal to inspection Extremity normal to inspection General Extremety ED: Negative for edema or tenderness General Extremity: Negative for edema Neuro oriented x3 Sensorium / Orientation: alert, oriented to person, oriented to place and oriented to time; Negative for orientation impaired, confused, lethargic or stuporous Motor Exam: strength 5/5 throughout Psych mental status grossly normal Appearance: Negative for unkempt Attitude: No agitated Mood & Affect: Negative for depressed or tearful Thought Process: normal thought process Skin no wounds General Skin Exam: Negative for jaundice or pallor Lesions: no lesions Rashes: no rashes MDM MDM MDM Narrative Medical decision making narrative: 51-year-old with reported shortness of breath after smoking marijuana. Has extensive past medical history. Is on the blood thinner Eliquis. Exam benign. Chronic speech impediment due to prior stroke. Will undergo a cardiac work-up. Repeat exam at 11:38 PM patient is doing well. Her oxygen sat is in the high 90s on 1 to 2 L which is her baseline. She had I went over her test results. She is comfortable being discharged home. I do not feel she needs any further work-up at this time. Lab Data Attestation: I reviewed the patient's lab results. Lab results narrative: CBC shows a white count 12.7. Hemoglobin of 14.5 and hematocrit of 46. Platelets 361. Electrolytes show a gap of 6 BUN of 23 creatinine 0.8. Glucose 122. Troponin 27. Labs: Laboratory Results - last 24 hr 09/17/21 09/17/21 23:05 23:05 WBC 12.7 H RBC 5.61 H Hgb 14.5 Hct 46.4 MCV 82.7 MCH 25.8 L MCHC 31.3 L RDW Std Deviation 42.3 RDW Coeff of Suzette 14.2 Plt Count 361 MPV 10.9 Immature Gran % (Auto) 0.800 Neut % (Auto) 84.9 H Lymph % (Auto) 9.0 L Wilkinson % (Auto) 5.1 Eos % (Auto) 0.0 Baso % (Auto) 0.2 Absolute Neuts (auto) 10.8 H Absolute Lymphs (auto) 1.15 Nucleated RBC % 0 Sodium 138 Potassium 4.5 Chloride 101 Carbon Dioxide 31.0 Anion Gap 6 BUN 23 H Creatinine 0.87 Estim Creat Clear Calc 72.42 Est GFR (MDRD) Af Amer 89 Est GFR (MDRD) Non-Af 73 BUN/Creatinine Ratio 26.5 H Glucose 122 H Calcium 8.7 Troponin I High Sens 27 Radiography Chest X-Ray - ED: 1 View, Read by ED Physician, Heart, Lungs, Mediastinum, Bony Structures, No Acute Disease and Chronic Changes Diagnostic Testing: Clinical Impression(s) from Imaging Studies Chest X-Ray 09/17/21 22:25 IMPRESSION: Cardiomegaly without radiographic evidence of acute cardiopulmonary disease. at 2248 Reported and signed by: Jim Valdez MD Electronically Signed: Jim Valdez MD at 22:46 EST Reading Location ID and State: [facility] / [place] Tel , Service support , Single view, portable, chest x-ray interpreted myself shows no acute abnormality. Normal cardiac silhouette. No infiltrates. No CHF. Rhythm Strip Rhythm Strip: A-fib Rate: 101 Ectopy: None EKG Initial EKG: Attestation: I personally reviewed and interpreted this EKG as follows: Interpretation: No Acute Injury Pattern and Atrial Fibrillation Comments: Atrial fibrillation rate of 101. Low voltage. Unchanged from recent EKG from August. Prior EKG tracings: available for review Prior: Unchanged Discharge Plan Triage Chief Complaint: Shortness of Breath ED Provider: Richard Correia Dx/Rx/DC Orders Clinical Impression: Acute dyspnea, Atrial fibrillation with RVR, Cardiomyopathy, Chronic anticoagulation Instructions: ED Dyspnea Prescriptions: No Action acetaminophen [Tylenol Extra Strength] 500 mg tablet 500 mg PO Q6H PRN (Reason: pain/fever) RF: 0 levetiracetam 750 mg tablet 750 mg PO BID Qty: 60 RF: 6 ferrous sulfate 325 MG tablet 325 mg PO DAILY@0800 Qty: 30 RF: 0 apixaban 5 MG tablet 5 mg PO BID RF: 0 carvedilol 12.5 MG tablet 12.5 mg PO BID RF: 0 meclizine 25 MG tablet 25 mg PO 4X/DAY PRN PRN (Reason: Dizziness) Qty: 20 RF: 0 phenol 20 ML aerosol,spray 1 spray MM TID Qty: 1 RF: 0 acetaminophen [8 Hour Pain Reliever] 650 mg tablet extended release 650 mg PO Q8H PRN (Reason: pain) Qty: 20 RF: 0 propylthiouracil 50 mg tablet 100 mg PO MOWEFR RF: 0 propylthiouracil 50 mg tablet 50 mg PO SUTUTHSA RF: 0 dexamethasone 2 mg tablet 6 mg PO DAILY 6 Days Qty: 18 RF: 0 atorvastatin 80 mg tablet 80 mg PO QHS Qty: 30 RF: 11 lactulose 10 gram/15 mL solution 15 ml PO BID Qty: 946 RF: 3 Primary Care Provider: Cheko Colbert Referrals: Cheko Colbert MD [Primary Care Provider] - 3-5 Days if not improving Activity Restrictions/Additional Instructions: Your labs and chest x-ray tonight were unremarkable. Your EKG was your chronic A. fib. Nothing specifically showed any problems that would make you short of breath. Your vital signs have been good also. Continue your current medications. Follow-up with your primary care physician if you do not feel back to your baseline. Return if feeling worse. Disposition Disposition: Home, Self Care
[2021-09-17 22:23] VITALS: O2SAT 100
--- NOTE | 2021-09-17 22:25 | RAD_ITS ---
HISTORY: chest pain EXAMINATION/TECHNIQUE: XR Chest 1 View: Portable upright AP chest x-ray COMPARISON: 09/05/21 FINDINGS: LINES/DEVICES: None. LUNGS: No consolidation, edema or effusion. No pneumothorax. MEDIASTINUM AND CARDIOVASCULAR STRUCTURES: Stable cardiomegaly. Central airways and mediastinal contour are unremarkable. BONES AND SOFT TISSUES: No acute bony abnormalities. RAD/Chest 1 View (Portable) IMPRESSION: Cardiomegaly without radiographic evidence of acute cardiopulmonary disease. at 2248 Reported and signed by: Jim Valdez MD Electronically Signed: Jim Valdez MD at 22:46 EST ,
[2021-09-17 23:27] LABS: Anion Gap 6 (5-15); BUN 23 mg/dL (7-18); BUN/Creat Ratio 26.5 RATIO (10-20); Calcium,Total 8.7 mg/dL (8.5-10.1); Chloride 101 mmol/L (98-107); Creatinine, Serum 0.87 mg/dL (0.55-1.02); EST Glomerular Filtration Rate 73 mL/min (>60); Est Glom Filt Rate - Afr Amer 89 mL/min (>60); Estimated Creatinine Clearance 72.42 ml/min; Glucose 122 mg/dL (74-106); Potassium 4.5 mmol/L (3.5-5.1); Sodium Level 138 mmol/L (136-145); Troponin-I HS 27 pg/mL (3.0-54.0)
[2021-09-17 23:34] LABS: Absolute Lymphocyte Count 1.15 X10^3/uL (0.83-4.51); Absolute Neutrophil Count 10.8 X10^3/uL (2.0-7.7); Basophil# 0.02 X10^3/uL; Basophil% 0.2 % (0-1); Hematocrit 46.4 % (37-47); Hemoglobin 14.5 g/dL (12.0-15.0); Lymphocyte # 1.15 X10^3/ul (0.83-4.51); Mean Corp Hgb Conc 31.3 g/dL (32-36); Mean Corpuscular Hgb 25.8 pg (27.0-32.0); Mean Corpuscular Volume 82.7 fL (81-99); Mean Platelet Vol. 10.9 fl (6.2-12.0); Monocyte# 0.65 X10^3/uL; Monocyte% 5.1 % (0-10); NRBC Flagged by Analyzer 0 % (0-5); Neutrophil # 10.81 X10^3/uL (2.7-7.7); Neutrophil % 84.9 % (47-70); Platelet Count 361 K/mm3 (150-450); RBC Distribution Width CV 14.2 % (11.6-14.6); RBC Distribution Width SD 42.3 fl (35.1-43.9); Red Blood Count 5.61 M/mm3 (4.2-5.4); White Blood Count 12.7 K/mm3 (4.4-11.0)
== END 2021-09-17 23:59 | disposition home or self-care (01) ==
PROVIDERS: Emergency Provider Emergency Medicine; PCP Family Medicine; Visit Provider Emergency Medicine
DX: I48.20 Chronic atrial fibrillation, unspecified (principal); I42.9 Cardiomyopathy, unspecified; E78.2 Mixed hyperlipidemia; E05.90 Thyrotoxicosis, unspecified without thyrotoxic crisis or storm; I69.30 Unspecified sequelae of cerebral infarction; Z79.01 Long term (current) use of anticoagulants; F17.210 Nicotine dependence, cigarettes, uncomplicated; Z79.899 Other long term (current) drug therapy; E66.9 Obesity, unspecified; D50.9 Iron deficiency anemia, unspecified; F12.90 Cannabis use, unspecified, uncomplicated
CPT/HCPCS: 71045; 80048; 84484; 85025; 93005; 99285; A4216

== ENCOUNTER 2022-01-14 16:39 | Emergency (ER) | payer MEDICARE, MEDICAID, SELFPAY ==
[2022-01-14 16:41] VITALS: BP 128/93; PULSE 65; RESP 16; TEMP 36.4; O2SAT 100; BMI 36.8
--- NOTE | 2022-01-14 16:51 | EDS_ITS ---
HPI History of Present Illness Chief Complaint: Lower Extremity Injury Informant: patient Narrative Narrative: 51-year-old female stating that about a week ago she stepped in a hole and twisted her ankle. She states it continues to hurt. She has been icing it and using an Enoch wrap. She denies any other injuries from the fall. [facility] Medical History Chronic a-fib History of stroke with residual effects History of traumatic head injury Hyperlipidemia, mixed Hyperthyroidism Iron deficiency anemia Left-sided weakness Marijuana smoker Memory deficits Memory loss Stroke due to embolism Tension headache Home Medications ferrous sulfate 325 mg PO DAILY@0800 #30 tab 02/11/17 [Rx Last Taken 05/23/19] atorvastatin 80 mg tablet 80 mg PO QHS #30 tab 11/11/17 [Rx Last Taken 05/22/19] apixaban 5 mg PO BID 04/16/19 [History Last Taken 05/23/19] carvedilol 12.5 mg PO BID 08/20/19 [History Last Taken Unknown] meclizine 25 mg PO 4X/DAY PRN PRN #20 tab 10/28/20 [Rx Last Taken Unknown] acetaminophen 500 mg tablet 500 mg PO Q6H PRN tab 11/01/20 [History Last Taken Unknown] phenol 1 spray MM TID #1 bottle 11/23/20 [Rx Last Taken Unknown] acetaminophen [8 Hour Pain Reliever] 650 mg PO Q8H PRN #20 tab 07/03/21 [Rx Last Taken Unknown] levetiracetam 750 mg tablet 750 mg PO BID #60 tab 07/18/21 [Rx Last Taken Unknown] lactulose 10 gram/15 mL oral solution 15 ml PO BID #946 ml 07/24/21 [Rx Last Taken Unknown] propylthiouracil 50 mg PO SUTUTHSA 09/05/21 [History Last Taken Unknown] propylthiouracil 100 mg PO MOWEFR 09/05/21 [History Last Taken Unknown] dexamethasone 6 mg PO DAILY 6 Days #18 tab 09/08/21 [Rx Last Taken Unknown] Allergy/AdvReac Type Severity Reaction Status Date / Time No Known Allergies Allergy Verified 01/14/22 16:42 Family History Sister Diabetes Grandmother CVA (cerebral vascular accident) Social History Smoking Status: Former smoker Tobacco: How many years used: 10 Electronic Cigarette Use: not used second hand exposure: No alcohol intake: former substance use type: marijuana ROS ROS ED Constitutional Constitutional ED: Denies chills, fever(s) or weight loss Eyes Eyes: Denies change in vision or diplopia ENT ENT ED: Denies ear pain, rhinorrhea or sore throat Cardiovascular Cardiovascular: Denies chest pain, orthopnea, palpitations or racing heartbeat Respiratory/Chest Respiratory/Chest: Denies cough, dyspnea or orthopnea Gastrointestinal Gastrointestinal: Denies abdominal pain, diarrhea, nausea or vomiting Genitourinary Genitourinary ED: Denies dysuria, hematuria or urinary frequency Musculoskeletal Musculoskeletal: Reports other Details: See history of present illness ; Denies arthralgias or myalgias Integumentary Denies abscess or rash Neurologic Neurologic: Denies headache(s) or weakness Psychiatric Psychiatric: Denies anxiety, depression, suicidal ideation or suicidal thoughts Endocrine Endocrinology: Denies polydipsia, polyphagia or polyuria Allergic/Immunologic Allergic/Immunologic ED: Denies mouth swelling, tongue swelling or urticaria EXAM Physical Exam Const Vital Signs: 01/14/22 16:41 Temperature 97.6 F L Temperature Source Temporal Pulse Rate 65 Respiratory Rate 16 Blood Pressure 128/93 H Blood Pressure Mean 104 Pulse Ox 100 Oxygen Delivery Method Room Air Positive well nourished and well developed General Appearance ED: well developed HEENT Reports normocephalic, head/scalp atraumatic and moist mucous membranes normocephalic and atraumatic; Negative for tenderness Eyes PERRL and EOMs intact bilaterally Neck full ROM, no lymphadenopathy, supple and no JVD Thyroid: Negative for tender Resp normal respiratory effort and clear to auscultation bilaterally Cardio no murmurs Rhythm: abnormal rhythm irregularly irregular GI normal to inspection, nondistended, normoactive bowel sounds and non-tender Palpation: soft Back/Spine no CVA tenderness and normal ROM Extremity full ROM Extremity Narrative: There is swelling and tenderness over the left lateral malleolus. There is no fifth metatarsal pain. No fibular head pain no posterior medial malleoli or pain Neuro oriented x3 and CN's II-XII intact bilaterally Sensorium / Orientation: alert Motor Exam: strength 5/5 throughout Psych mental status grossly normal Mood & Affect: Negative for depressed or tearful Skin no rashes or lesions noted and no wounds MDM MDM MDM Narrative Medical decision making narrative: My interpretation of the plain films of the left ankle is no acute fracture. Patient be placed in Aircast. Follow-up podiatry if not improving Radiography Diagnostic Testing: Clinical Impression(s) from Imaging Studies Ankle X-Ray 01/14/22 17:18 IMPRESSION: There is soft tissue swelling. Electronically Signed: Milad Siddiqui MD at 17:38 EDT Reading Location ID and State: [facility] / [place] , Service support , Discharge Plan Triage Chief Complaint: Lower Extremity Injury ED Provider: Christopher Jimenez Dx/Rx/DC Orders Clinical Impression: Left ankle sprain Instructions: ED Ankle Sprain (Adult) Prescriptions: No Action acetaminophen [Tylenol Extra Strength] 500 mg tablet 500 mg PO Q6H PRN (Reason: pain/fever) RF: 0 levetiracetam 750 mg tablet 750 mg PO BID Qty: 60 RF: 6 ferrous sulfate 325 MG tablet 325 mg PO DAILY@0800 Qty: 30 RF: 0 apixaban 5 MG tablet 5 mg PO BID RF: 0 carvedilol 12.5 MG tablet 12.5 mg PO BID RF: 0 meclizine 25 MG tablet 25 mg PO 4X/DAY PRN PRN (Reason: Dizziness) Qty: 20 RF: 0 phenol 20 ML aerosol,spray 1 spray MM TID Qty: 1 RF: 0 acetaminophen [8 Hour Pain Reliever] 650 mg tablet extended release 650 mg PO Q8H PRN (Reason: pain) Qty: 20 RF: 0 propylthiouracil 50 mg tablet 100 mg PO MOWEFR RF: 0 propylthiouracil 50 mg tablet 50 mg PO SUTUTHSA RF: 0 dexamethasone 2 mg tablet 6 mg PO DAILY 6 Days Qty: 18 RF: 0 atorvastatin 80 mg tablet 80 mg PO QHS Qty: 30 RF: 11 lactulose 10 gram/15 mL solution 15 ml PO BID Qty: 946 RF: 3 Primary Care Provider: Cheko Colbert Referrals: Cheko Colbert MD [Primary Care Provider] - Kaitlin Becerra DPM [STAFF PHYSICIAN] - 10-14 Days if not better Disposition Disposition: Home, Self Care
--- NOTE | 2022-01-14 17:18 | RAD_ITS ---
STUDY: XR Ankle Min 3 Views REASON FOR EXAM: Female, 51 years old. ANKLE PAINHistory: injury Technologist Notes LEFT ANKLE PAIN SINCE STEPPING IN A HOLE A WEEK AGO TECHNIQUE: XR Ankle Min 3 Views LEFT COMPARISON: None. FINDINGS: Normal visualized distal tibia and fibula. Normal medial and lateral malleoli. Normal tibiotalar articulation and ankle mortise. There is an enthesophyte involving the posterior superior calcaneus at the site of insertion of the Achilles tendon. The visualized subtalar, talonavicular, calcaneocuboid and tarsal articulations are normal. There is a plantar calcaneal spur. There is soft tissue swelling around the ankle. RAD/Ankle min 3 Views IMPRESSION: There is soft tissue swelling. Electronically Signed: Milad Siddiqui MD at 17:38 EDT ,
[2022-01-14 17:42] VITALS: RESP 16
== END 2022-01-14 18:05 | disposition home or self-care (01) ==
PROVIDERS: Emergency Provider Emergency Medicine; PCP Family Medicine; Visit Provider Emergency Medicine
DX: S93.402A Sprain of unspecified ligament of left ankle, initial encounter (principal); I48.20 Chronic atrial fibrillation, unspecified; E78.2 Mixed hyperlipidemia; Z87.891 Personal history of nicotine dependence; X50.1XXA Overexertion from prolonged static or awkward postures, initial encounter; I69.398 Other sequelae of cerebral infarction; E05.00 Thyrotoxicosis with diffuse goiter without thyrotoxic crisis or storm; Z79.899 Other long term (current) drug therapy; Z79.01 Long term (current) use of anticoagulants
CPT/HCPCS: 73610; 99284

== ENCOUNTER 2022-03-12 18:15 | Emergency (ER) | payer MEDICARE, MEDICAID, SELFPAY ==
[2022-03-12 18:18] VITALS: BP 147/105; PULSE 86; RESP 18; TEMP 36.2; O2SAT 98; BMI 37.7
--- NOTE | 2022-03-12 18:28 | EX.ED.VIS.HA ---
HPI History of Present Illness Chief Complaint: Headache Informant: patient and EMS Onset/Context/Timing Onset: Today (20 min ago) Context: Sudden and Onset Timing: Continuous Quality -Headache: Positive for Sharp Location: Left frontal and left occipital into posterior lateral left neck Current Severity: Severe Maximum Severity: Severe Worsened by: Nothing Relieved by: Nothing but has not tried anything Associated Symptoms/Injury Associated Symptoms: Negative for Fever, Nausea, Vomiting, Preceding Aura, Visual Changes, Blurred Vision or Photophobia Injury - WEST: Negative for Direct Trauma, Fall or Assault Narrative Narrative: Patient states she was feeling fine today, 20 minutes prior to my evaluation she had a sudden onset headache she cannot remember what she was doing but denies losing consciousness. She denies any other associated symptoms except for neck pain not stiffness. It is all left-sided. She states she has a history of migraines but has not had one for a while and cannot remember if this feels like those or not. She does not describe a thunderclap or any other specific symptoms but when I asked her if it felt like one she states yes something like that. She has a history of a stroke and has left upper and lower extremity chronic deficits that she states seems stable to her and she denies any other new symptoms or vision changes. She states she is on a blood thinner that starts with an F and as we proves her medication list, it includes a apixaban which apparently is for A. fib, she states yes. [facility] Medical History Chronic a-fib History of stroke with residual effects History of traumatic head injury Hyperlipidemia, mixed Hyperthyroidism Iron deficiency anemia Left-sided weakness Marijuana smoker Memory deficits Memory loss Seizure Stroke due to embolism Tension headache Home Medications ferrous sulfate 325 mg (65 mg iron) tablet 325 mg PO DAILY@0800 #30 tabs 02/11/17 [Rx Last Taken 05/23/19] atorvastatin 80 mg tablet 80 mg PO QHS #30 tabs 11/11/17 [Rx Last Taken 05/22/19] apixaban 5 mg tablet 5 mg PO BID blood thiner 04/16/19 [History Last Taken 05/23/19] carvedilol 12.5 mg tablet 12.5 mg PO BID 08/20/19 [History Last Taken Unknown] meclizine 25 mg tablet 25 mg PO 4X/DAY PRN PRN Dizziness #20 tabs 10/28/20 [Rx Last Taken Unknown] acetaminophen 500 mg tablet (Tylenol Extra Strength) 500 mg PO Q6H PRN pain/fever 11/01/20 [History Last Taken Unknown] phenol 1.4 % mucosal aerosol spray 1 spray MM TID #1 BOTTLE 11/23/20 [Rx Last Taken Unknown] acetaminophen 650 mg tablet,extended release (8 Hour Pain Reliever) 650 mg PO Q8H PRN pain #20 tabs 07/03/21 [Rx Last Taken Unknown] lactulose 10 gram/15 mL oral solution 15 ml PO BID #946 mL 07/24/21 [Rx Last Taken Unknown] propylthiouracil 50 mg tablet 50 mg PO SUTUTHSA 09/05/21 [History Last Taken Unknown] propylthiouracil 50 mg tablet 100 mg PO MOWEFR 09/05/21 [History Last Taken Unknown] dexamethasone 2 mg tablet 6 mg PO DAILY 6 days #18 tabs 09/08/21 [Rx Last Taken Unknown] levetiracetam 750 mg tablet 750 mg PO BID #60 tabs 01/27/22 [Rx Last Taken Unknown] carvedilol 6.25 mg tablet 6.25 mg PO 03/03/22 [History Last Taken Unknown] loratadine 10 mg tablet (Allergy Relief (loratadine)) 10 mg PO DAILY 03/03/22 [History Last Taken Unknown] Allergy/AdvReac Type Severity Reaction Status Date / Time No Known Allergies Allergy Verified 03/12/22 18:17 Family History Sister Diabetes Grandmother CVA (cerebral vascular accident) Social History Smoking Status: Former smoker Tobacco: How many years used: 10 Electronic Cigarette Use: not used second hand exposure: No alcohol intake: former substance use type: marijuana ROS ROS ED Constitutional Constitutional ED: Denies chills or fever(s) Eyes Eyes: Denies blurry vision, change in vision or diplopia ENT ENT ED: Denies rhinorrhea or sore throat Cardiovascular Cardiovascular: Denies chest pain or palpitations Respiratory/Chest Respiratory/Chest: Denies cough or dyspnea Gastrointestinal Gastrointestinal: Denies abdominal pain, diarrhea, nausea or vomiting Genitourinary Genitourinary ED: Denies dysuria or hematuria Musculoskeletal Musculoskeletal: Reports neck pain; Denies back pain Integumentary Denies abscess or rash Neurologic Neurologic: Reports as per HPI, headache(s), paresthesias and weakness Psychiatric Psychiatric: Denies anxiety or suicidal thoughts EXAM Physical Exam Const Vital Signs: 03/12/22 18:18 03/12/22 19:48 Temperature 97.1 F L Temperature Source Temporal Pulse Rate 86 81 Respiratory Rate 18 16 Blood Pressure 147/105 H 138/79 H Blood Pressure Mean 119 98 Pulse Ox 98 97 Oxygen Delivery Method Room Air Room Air Positive well nourished, well developed and obese Constitutional Narrative: Well-appearing. Flat affect. 1 or 2 word answers to all questions. General Appearance ED: well developed and NAD Nutritional Appearance: obese HEENT Reports moist mucous membranes normocephalic and atraumatic Eyes PERRL and EOMs intact bilaterally Eyes Narrative: No significant photophobia. Neck full ROM, no lymphadenopathy, supple and no meningeal signs Neck Narrative: No carotid bruits heard Resp normal respiratory effort and clear to auscultation bilaterally Cardio regular rate, regular rhythm and no murmurs GI non-tender and non-distended Auscultation: normoactive bowel sounds Palpation: soft Back/Spine no CVA tenderness General Back: other FROM Extremity normal to inspection General Extremety ED: Negative for edema, pulses abnormal or tenderness General Extremity: Negative for edema or pulses abnormal Neuro oriented x3, CN's II-XII intact bilaterally and no sensory deficits noted Neuro Narrative: Patient has chronic decreased sensation in the left side but objectively sensation is intact. Weakness in both lower extremities, the left is worse than the right. She cannot resist gravity in either 1. She holds both upper extremities up equally saying that the left feels weaker and is stable for her chronically. Erlinda Coma Scale: document GCS findings Spontaneous Obeys Commands Oriented 15 Sensorium / Orientation: awake and alert Psych Psych Narrative: flat affect. keenly alert. Skin no rashes or lesions noted and no wounds MDM MDM MDM Narrative Medical decision making narrative: Labs were obtained due to giving the patient contrast for CT angiography of the head and neck to rule out development of a cerebral aneurysm, cervicocranial arterial dissection, and/or subarachnoid hemorrhage. This was negative for all of those. She does have encephalomalacia in the right temporooccipital area consistent with her old stroke causing her chronic left hemiparesis. She was given Reglan while we were obtaining this work-up, on reevaluation she states the headache is completely gone and she feels much better. I do not think she needs a lumbar puncture given all of this. She is comfortable with discharge home. Lab Data Attestation: I reviewed the patient's lab results. Labs: Laboratory Results - last 24 hr 03/12/22 03/12/22 03/12/22 18:40 18:40 19:00 WBC Cancelled 4.7 Corrected WBC Cancelled RBC Cancelled 5.31 Hgb Cancelled 13.6 Hct Cancelled 43.7 MCV Cancelled 82.3 MCH Cancelled 25.6 L MCHC Cancelled 31.1 L RDW Std Deviation Cancelled 41.4 RDW Coeff of Suzette Cancelled 14.0 Plt Count Cancelled 277 MPV Cancelled 10.5 Immature Gran % (Auto) Cancelled 0.200 Neut % (Auto) Cancelled 43.0 L Lymph % (Auto) Cancelled 43.6 H Dickey % (Auto) Cancelled 10.0 Eos % (Auto) Cancelled 2.6 Baso % (Auto) Cancelled 0.6 Absolute Neuts (auto) Cancelled 2.0 Absolute Lymphs (auto) Cancelled 2.05 Total Counted Cancelled Neutrophils % (Manual) Cancelled Band Neutrophils % Cancelled Lymphocytes % (Manual) Cancelled Monocytes % (Manual) Cancelled Eosinophils % (Manual) Cancelled Basophils % (Manual) Cancelled Metamyelocytes % Cancelled Myelocytes % Cancelled Promyelocytes % Cancelled Blast Cells % Cancelled Plasma Cell % (Manual) Cancelled Other Cells % Cancelled Nucleated RBC % Cancelled 0 Nucleated RBCs/100 WBC Cancelled Differential Comment Cancelled Diff Path Review Cancelled Hypersegmented Neuts Cancelled Atypical Lymphocytes Cancelled Reactive Lymphocytes Cancelled Smudge Cells Cancelled Toxic Granulation Cancelled Toxic Vacuolation Cancelled Dohle Bodies Cancelled Corrina Rods Cancelled Platelet Estimate Cancelled Plt Morphology Comment Cancelled RBC Morphology Cancelled Polychromasia Cancelled Hypochromasia Cancelled Poikilocytosis Cancelled Basophilic Stippling Cancelled Anisocytosis Cancelled Microcytosis Cancelled Macrocytosis Cancelled Spherocytes Cancelled Sickle Cells Cancelled Target Cells Cancelled Tear Drop Cells Cancelled Ovalocytes Cancelled Stomatocytes Cancelled [place] Bodies Cancelled [place] Cells Cancelled Bite Cells Cancelled Crenated Cell Cancelled Acanthocytes (Spur) Cancelled Rouleaux Cancelled Schistocytes Cancelled Sodium 140 Potassium 4.1 Chloride 108 H Carbon Dioxide 27.0 Anion Gap 5 BUN 9 Creatinine 0.88 Estim Creat Clear Calc 70.80 Est GFR (MDRD) Af Amer 88 Est GFR (MDRD) Non-Af 72 BUN/Creatinine Ratio 10.3 Glucose 102 Calcium 9.2 Radiography Diagnostic Testing: Clinical Impression(s) from Imaging Studies Head/Neck CTA 03/12/22 19:30 IMPRESSION: Normal CTA Head and neck with contrast. Chronic right temporal and occipital infarcts. Electronically Signed: Larissa Mcdaniels MD at 21:07 EDT Reading Location ID and State: [id number] / Tel , Service support , Discharge Plan Triage Chief Complaint: Headache ED Provider: Juvencio Scott Dx/Rx/DC Orders Clinical Impression: Headache, migraine Instructions: ED, Migraine (Classical) Prescriptions: No Action acetaminophen [Tylenol Extra Strength] 500 mg tablet 500 mg PO Q6H PRN (Reason: pain/fever) carvedilol 6.25 mg tablet 6.25 mg PO loratadine [Allergy Relief (loratadine)] 10 mg tablet 10 mg PO DAILY ferrous sulfate 325 MG tablet 325 mg PO DAILY@0800 Qty: 30 0RF Label Comments: iron supplement Rx Instructions: iron supplement apixaban 5 MG tablet 5 mg PO BID carvedilol 12.5 MG tablet 12.5 mg PO BID Label Comments: blood pressure/heart Rx Instructions: blood pressure meclizine 25 MG tablet 25 mg PO 4X/DAY PRN PRN (Reason: Dizziness) Qty: 20 0RF phenol 20 ML aerosol,spray 1 spray MM TID Qty: 1 0RF acetaminophen [8 Hour Pain Reliever] 650 mg tablet extended release 650 mg PO Q8H PRN (Reason: pain) Qty: 20 0RF propylthiouracil 50 mg tablet 100 mg PO MOWEFR Label Comments: TAKE 1 TABLET BY MOUTH EVERY Thu SAT {[id number]} ~101Q2 TAKE 2 TABLETS A DAY EVERY Thu {[id number]} propylthiouracil 50 mg tablet 50 mg PO SUTUTHSA dexamethasone 2 mg tablet 6 mg PO DAILY 6 Days Qty: 18 0RF Rx Instructions: Start 09/09/21 atorvastatin 80 mg tablet 80 mg PO QHS Qty: 30 11RF Label Comments: cholesterol Rx Instructions: cholesterol lactulose 10 gram/15 mL solution 15 ml PO BID Qty: 946 3RF levetiracetam 750 mg tablet 750 mg PO BID Qty: 60 1RF Primary Care Provider: Cheko Colbert Referrals: Cheko Colbert MD [Primary Care Provider] - 3-5 Days if not improving Disposition Disposition: Home, Self Care
[2022-03-12 19:04] LABS: Anion Gap 5 (5-15); BUN 9 mg/dL (7-18); BUN/Creat Ratio 10.3 RATIO (10-20); Calcium,Total 9.2 mg/dL (8.5-10.1); Chloride 108 mmol/L (98-107); Creatinine, Serum 0.88 mg/dL (0.55-1.02); EST Glomerular Filtration Rate 72 mL/min (>60); Est Glom Filt Rate - Afr Amer 88 mL/min (>60); Glucose 102 mg/dL (74-106); Potassium 4.1 mmol/L (3.5-5.1); Sodium Level 140 mmol/L (136-145)
[2022-03-12] MEDS: Metoclopramide 10 MG/2 ML Vial IV (19:06)
[2022-03-12 19:11] LABS: Absolute Lymphocyte Count 2.05 X10^3/uL (0.83-4.51); Basophil# 0.03 X10^3/uL; Basophil% 0.6 % (0-1); Eosinophil# 0.12 X10^3/uL; Eosinophils% 2.6 % (0-5); Hematocrit 43.7 % (37-47); Hemoglobin 13.6 g/dL (12.0-15.0); Lymphocyte # 2.05 X10^3/ul (0.83-4.51); Lymphocyte % 43.6 % (19-41); Mean Corp Hgb Conc 31.1 g/dL (32-36); Mean Corpuscular Hgb 25.6 pg (27.0-32.0); Mean Corpuscular Volume 82.3 fL (81-99); Mean Platelet Vol. 10.5 fl (6.2-12.0); Monocyte# 0.47 X10^3/uL; NRBC Flagged by Analyzer 0 % (0-5); Neutrophil # 2.02 X10^3/uL (2.7-7.7); Platelet Count 277 K/mm3 (150-450); RBC Distribution Width SD 41.4 fl (35.1-43.9); Red Blood Count 5.31 M/mm3 (4.2-5.4); White Blood Count 4.7 K/mm3 (4.4-11.0)
--- NOTE | 2022-03-12 19:30 | CT_ITS ---
STUDY: CTA HEAD AND NECK WITH CONTRAST REASON FOR EXAM: Female, 52 years old. headache RADIATION DOSAGE (If Supplied By Facility): CTDIvol = ( 33.87 ) mGy, DLP = ( 1453.07 ) mGycm TECHNIQUE: CT angiography was performed with a multi-detector CT scanner. Data acquisition was obtained from the skull base through the vertex following intravenous administration of IV 100mL Isovue-370. MIP images were reconstructed from the axial data set. Post-processing of the angiographic images was performed, with multiplanar reformation and 3D reconstruction. Individualized dose optimization techniques were used for this CT. COMPARISON: 05/23/2019. FINDINGS: Normal bilateral petrous and cavernous carotid arteries. Normal anterior cerebral arteries. Normal intact anterior communicating artery (ACOM). Normal middle cerebral arteries. Normal right posterior communicating artery (PCOM). Normal left posterior communicating artery (PCOM). Normal bilateral vertebral arteries. Normal basilar artery with a normal basilar bifurcation. The visualized bilateral superior cerebellar (SCA) arteries are normal. Normal bilateral P1, P2 and visualized P3 segments of the posterior cerebral arteries. There is no demonstrated aneurysm of the [place]. Chronic right temporal and occipital infarcts. AORTIC ARCH: Normal visualized aortic arch. Normal origins of the brachiocephalic, left common carotid, and left subclavian arteries. RIGHT CAROTID ARTERIES: Normal right common carotid artery (CCA). Normal right common carotid bulb. Normal origin of the right internal carotid (ICA) artery without stenosis. Normal visualized cervical portion of the right internal carotid artery. Normal origin of the right external carotid artery (ECA). LEFT CAROTID ARTERIES: Normal left common carotid artery (CCA). Normal left common carotid bulb. Normal origin of the left internal carotid (ICA) artery without stenosis. Normal visualized cervical portion of the left internal carotid artery. Normal origin of the left external carotid artery (ECA). VERTEBRAL ARTERIES: Normal bilateral vertebral arteries. CT/CTA Head AND Neck W/ Contrast IMPRESSION: Normal CTA Head and neck with contrast. Chronic right temporal and occipital infarcts. Electronically Signed: Larissa Mcdaniels MD at 21:07 EDT [place] Location ID and State: [id number] / Tel , Service support ,
[2022-03-12 19:48] VITALS: BP 138/79; PULSE 81; RESP 16; O2SAT 97
[2022-03-12 21:26] VITALS: BP 106/65; PULSE 60; RESP 18; O2SAT 96
== END 2022-03-12 21:28 | disposition home or self-care (01) ==
PROVIDERS: Emergency Provider Emergency Medicine; PCP Family Medicine; Visit Provider Emergency Medicine
DX: G43.909 Migraine, unspecified, not intractable, without status migrainosus (principal); I69.354 Hemiplegia and hemiparesis following cerebral infarction affecting left non-dominant side; I48.20 Chronic atrial fibrillation, unspecified; G40.909 Epilepsy, unspecified, not intractable, without status epilepticus; E78.2 Mixed hyperlipidemia; E05.90 Thyrotoxicosis, unspecified without thyrotoxic crisis or storm; D50.9 Iron deficiency anemia, unspecified; Z79.01 Long term (current) use of anticoagulants; Z79.899 Other long term (current) drug therapy; Z87.891 Personal history of nicotine dependence; E66.9 Obesity, unspecified; Z68.37 Body mass index [BMI] 37.0-37.9, adult
CPT/HCPCS: 70496; 70498; 80048; 85025; 96361; 96374; 99285; J7040; Q9967; A4216

== ENCOUNTER 2022-09-22 11:25 | Emergency (ER) | payer MEDICARE, MEDICAID, SELFPAY ==
[2022-09-22 11:26] VITALS: BP 133/93; PULSE 79; RESP 16; TEMP 36.3; O2SAT 98; BMI 40.3
--- NOTE | 2022-09-22 11:40 | RAD_ITS ---
EXAM: XR RIGHT KNEE, 3 VIEWS CLINICAL INDICATION: pain/pop -- in ed waiting room TECHNIQUE: Three views of the right knee. This report was created using [employer] report generation technology. COMPARISON: None. FINDINGS: BONES/JOINTS: Calcific enthesopathy in the anterior superior surface of the patella. No acute fracture. No subluxation. Normal alignment. No sclerotic or destructive changes observed. SOFT TISSUES: Minimal joint effusion in the suprapatellar bursa. RAD/Knee 3 Views IMPRESSION: No acute findings in the right knee. Electronically Signed: Eliel Faulkner MD at 11:58 EST ,
--- NOTE | 2022-09-22 14:35 | EDS_ITS ---
HPI History of Present Illness Chief Complaint: Lower Extremity Injury Informant: patient Narrative Narrative: Nontraumatic right knee pain since yesterday. States at times will catch and lock. Has had issues in the past. History of CVA 7 years ago with mild left- sided residual ambulates with a cane. Is unsure if she is ever seen a specialist for her knee. Has been taking Tylenol with moderate relief. She is able to ambulate. No fevers. Prior similar symptoms: Yes PFSH PFSH Medical History Chronic a-fib History of stroke with residual effects History of traumatic head injury Hyperlipidemia, mixed Hyperthyroidism Iron deficiency anemia Left-sided weakness Marijuana smoker Memory deficits Memory loss Seizure Stroke due to embolism Tension headache Home Medications ferrous sulfate 325 mg (65 mg iron) tablet 325 mg PO DAILY@0800 #30 tabs 02/11/17 [Rx Last Taken 05/23/19] atorvastatin 80 mg tablet 80 mg PO QHS #30 tabs 11/11/17 [Rx Last Taken 05/22/19] apixaban 5 mg tablet 5 mg PO BID blood thiner 04/16/19 [History Last Taken 05/23/19] acetaminophen 500 mg tablet (Tylenol Extra Strength) 500 mg PO Q6H PRN pain/fever 11/01/20 [History Last Taken Unknown] acetaminophen 650 mg tablet,extended release (8 Hour Pain Reliever) 650 mg PO Q8H PRN pain #20 tabs 07/03/21 [Rx Last Taken Unknown] lactulose 10 gram/15 mL oral solution 15 ml PO BID #946 mL 07/24/21 [Rx Last Taken Unknown] carvedilol 6.25 mg tablet 6.25 mg PO 03/03/22 [History Last Taken Unknown] loratadine 10 mg tablet (Allergy Relief (loratadine)) 10 mg PO DAILY 03/03/22 [History Last Taken Unknown] cefadroxil 500 mg capsule 500 mg PO BID 09/09/22 [History Last Taken Unknown] fluticasone propionate 50 mcg/actuation nasal spray,suspension (Flonase Allergy Relief) 1 spray intranasal DAILY 09/09/22 [History Last Taken Unknown] levetiracetam 750 mg tablet See Rx Instructions .Route .COMPLEX #60 tabs 09/09/22 [Rx Last Taken Unknown] propylthiouracil 50 mg tablet 50 mg PO BID 09/09/22 [History Last Taken Unknown] Allergy/AdvReac Type Severity Reaction Status Date / Time No Known Allergies Allergy Verified 09/09/22 13:16 Family History Sister Diabetes Grandmother CVA (cerebral vascular accident) Surgical History No history of previous surgery Social History Smoking Status: Former smoker Tobacco: How many years used: 10 Electronic Cigarette Use: not used second hand exposure: No alcohol intake: former substance use type: marijuana what type of physical activity do you participate in: walking frequency: daily martin/mormonism: Mormonism seatbelt use: always ROS ROS ED Constitutional Constitutional ED: Denies chills, fever(s) or sweats Eyes Eyes: Denies change in vision ENT ENT ED: Denies dysphagia or sore throat Cardiovascular Cardiovascular: Denies chest pain, leg edema, palpitations or racing heartbeat Respiratory/Chest Respiratory/Chest: Denies cough, dyspnea or dyspnea on exertion Gastrointestinal Gastrointestinal: Denies abdominal pain, diarrhea, nausea or vomiting Genitourinary Genitourinary ED: Denies dysuria, hematuria or urinary frequency Musculoskeletal Musculoskeletal: Reports extremity pain; Denies back pain or neck pain Integumentary Denies rash or wounds Neurologic Neurologic: Denies headache(s), paresthesias or weakness EXAM Physical Exam Const Vital Signs: 09/22/22 11:26 Temperature 97.4 F L Temperature Source Temporal Pulse Rate 79 Respiratory Rate 16 Blood Pressure 133/93 H Blood Pressure Mean 106 Pulse Ox 98 Oxygen Delivery Method Room Air Positive well nourished and well developed General Appearance ED: well developed and NAD HEENT Reports moist mucous membranes normocephalic and atraumatic Eyes PERRL, EOMs intact bilaterally and conjunctivae normal General Eye ED: Yes normal appearance of both eyes Neck no lymphadenopathy and supple General: Negative for tenderness Chest Wall Chest: Negative for tenderness Resp normal respiratory effort and normal air movement Effort and Inspection: symmetric chest movement; Negative for respiratory distress Cardio regular rate, regular rhythm and no murmurs Peripheral Pulses: pulses 2+ throughout GI normal to inspection, nondistended, normoactive bowel sounds and non-tender Palpation: Negative for guarding or rebound tenderness present Back/Spine no CVA tenderness and no thoracic nor lumbar tenderness Extremity Extremity Narrative: Right lower extremity: Negative logroll. Knee extensor mechanism intact. Negative varus and valgus. There is mild positive Mrala's with varus stress. Negative patellar grind. Skin intact. No swelling or increased warmth. Neurovascular intact distally. General Extremety ED: Negative for edema or tenderness General Extremity: Negative for edema Neuro oriented x3 and no sensory deficits noted Sensorium / Orientation: awake and alert Skin no rashes or lesions noted and no wounds MDM MDM MDM Narrative Medical decision making narrative: Interventions / MDM: Differential diagnosis: Knee sprain, meniscus injury, ligamentous injury Diagnosis considered but do not suspect: Septic joint, however no warmth or worse erythema My EKG interpretation: N/A Imaging independently reviewed and interpreted by myself: 3 views right knee negative for fracture or dislocation External documents reviewed: N/A Test considered but not ordered:N/A ED course: Patient x-ray reviewed no significant findings. She reports catching locking sensation concern for internal derangement with meniscus injuries. She is able to ambulate. Enoch wrap provided for support. Currently on Eliquis history of A-fib. She will continue Tylenol as it is helping. She is given follow-up with orthopedics as an outpatient. All questions were answered. Re-evaluation: stable and improved Disposition discussed with patient/family/significant other: Patient Case discussed with consulting clinician: N/A Radiography Diagnostic Testing: Clinical Impression(s) from Imaging Studies Knee X-Ray 09/22/22 11:40 IMPRESSION: No acute findings in the right knee. Electronically Signed: Eliel Faulkner MD at 11:58 EST , Discharge Plan Triage Chief Complaint: Lower Extremity Injury ED Provider: Dwight Mittal Dx/Rx/DC Orders Clinical Impression: Acute pain of left knee, History of stroke with residual effects, Acute internal derangement of left knee Instructions: Knee Pain Prescriptions: No Action acetaminophen [Tylenol Extra Strength] 500 mg tablet 500 mg PO Q6H PRN (Reason: pain/fever) carvedilol 6.25 mg tablet 6.25 mg PO loratadine [Allergy Relief (loratadine)] 10 mg tablet 10 mg PO DAILY levetiracetam 750 mg tablet See Rx Instructions .ROUTE .COMPLEX Qty: 60 7RF Dose Instruction: TAKE 1 TABLET BY MOUTH TWICE A DAY Rx Instructions: TAKE 1 TABLET BY MOUTH TWICE A DAY cefadroxil 500 mg capsule 500 mg PO BID fluticasone propionate [Flonase Allergy Relief] 50 mcg/actuation spray,suspension 1 spray intranasal DAILY Rx Instructions: administer into each nostril ferrous sulfate 325 MG tablet 325 mg PO DAILY@0800 Qty: 30 0RF Label Comments: iron supplement Rx Instructions: iron supplement apixaban 5 MG tablet 5 mg PO BID acetaminophen [8 Hour Pain Reliever] 650 mg tablet extended release 650 mg PO Q8H PRN (Reason: pain) Qty: 20 0RF propylthiouracil 50 mg tablet 50 mg PO BID atorvastatin 80 mg tablet 80 mg PO QHS Qty: 30 11RF Label Comments: cholesterol Rx Instructions: cholesterol lactulose 10 gram/15 mL solution 15 ml PO BID Qty: 946 3RF Primary Care Provider: Cheko Colbert Referrals: Cheko Colbert MD [Primary Care Provider] - Shane Brewer DO [Med Staff - Active Staff] - 1 Week Activity Restrictions/Additional Instructions: Right knee x-ray negative. Continue Tylenol every 6 hours as needed. Follow-up with Dr. Brewer for outpatient evaluation and treatment as needed. Disposition Disposition: Home, Self Care Discharge Date/Time: 09/22/22 14:51
== END 2022-09-22 14:51 | disposition home or self-care (01) ==
PROVIDERS: Emergency Provider Emergency Medicine; PCP Family Medicine; Visit Provider Emergency Medicine
DX: M23.92 Unspecified internal derangement of left knee (principal); I69.354 Hemiplegia and hemiparesis following cerebral infarction affecting left non-dominant side; I48.20 Chronic atrial fibrillation, unspecified; R56.9 Unspecified convulsions; M25.562 Pain in left knee; E78.2 Mixed hyperlipidemia; Z87.891 Personal history of nicotine dependence; Z79.899 Other long term (current) drug therapy; D50.9 Iron deficiency anemia, unspecified; Z79.01 Long term (current) use of anticoagulants; E05.90 Thyrotoxicosis, unspecified without thyrotoxic crisis or storm
CPT/HCPCS: 73562; 99284

== ENCOUNTER 2023-03-16 19:38 | Emergency (ER) | payer MEDICARE, MEDICAID, SELFPAY ==
[2023-03-16 19:39] VITALS: BP 122/92; PULSE 75; RESP 18; TEMP 35.8; O2SAT 97; BMI 36.5
== END 2023-03-16 21:34 | disposition left against medical advice (07) ==
PROVIDERS: PCP Family Medicine
DX: S09.90XA Unspecified injury of head, initial encounter (principal)
CPT/HCPCS: 99281

== ENCOUNTER → 2024-09-21 | Outpatient (CLI) | payer MEDICARE, MEDICAID, SELFPAY ==
[2024-09-21 16:01] LABS: Hematocrit 41.7 % (37-47); Hemoglobin 12.5 g/dL (12.0-15.0); Mean Corpuscular Hgb 25.6 pg (27.0-32.0); Mean Corpuscular Volume 85.3 fL (81-99); Mean Platelet Vol. 10.9 fl (6.2-12.0); Platelet Count 264 K/mm3 (150-450); RBC Distribution Width CV 14.2 % (11.6-14.6); RBC Distribution Width SD 43.9 fl (35.1-43.9); Red Blood Count 4.89 M/mm3 (4.2-5.4); White Blood Count 4.6 K/mm3 (4.4-11.0)
[2024-09-21 16:31] LABS: AST(SGOT) 23 U/L (15-37); Alanine Aminotransfer ALT/SGPT 26 U/L (13-56); Albumin, Serum 3.7 g/dL (3.2-5.0); Alkaline Phosphatase 97 U/L (45-117); Anion Gap 6 (5-15); BUN 13 mg/dL (7-18); BUN/Creat Ratio 16.3 RATIO (10-20); Calcium,Total 9.4 mg/dL (8.5-10.1); Chloride 109 mmol/L (98-107); EST Glomerular Filtration Rate 80 mL/min (>60); Est Glom Filt Rate - Afr Amer 97 mL/min (>60); Globulin 3.7 g/dL (2.2-4.2); Glucose 95 mg/dL (74-106); Protein, Total 7.4 g/dL (6.4-8.2); Sodium Level 143 mmol/L (136-145)
[2024-09-27 04:06] LABS: KEPPRA (LEVETIRACETAM) 28.9 ug/mL (10.0-40.0)
== END | disposition home or self-care (01) ==
LOC: MTLAB 11:47
PROVIDERS: PCP Family Medicine; Referring Provider Psychiatry & Neurology Neurology; Visit Provider Psychiatry & Neurology Neurology
DX: G40.909 Epilepsy, unspecified, not intractable, without status epilepticus (principal)
CPT/HCPCS: 36415; 80053; 80177; 82140; 85027